=== PATIENT | female | born 1980 | race Caucasian/White ===

== ENCOUNTER 2024-11-09 10:46 | Outpatient (AMB) | payer BC, SELFPAY ==
--- OUTSIDE RECORDS SUMMARY | 2004-05-09 01:00 | XMS_ITS | Encounter Summary ---
Author Organization [facility] Address [address] [place] [phone] Phone Care Team Providers Care Research And Evaluation Analyst Name Role Phone Unavailable Primary Care Provider Unavailabl e Encounter Details Date Type Department Care Team (Late st Contact Info) Description 05/09/2004 Hospital Encounter [facility] [address] [place] [address] Mary Anne Bradley MD [address] [place] [address] Social History Tobacco Use Types Packs/Day Years Used Date Smoking Tobacco: Never Assessed Education Answer Date Recorded Are you interested in more education? Not on sulema e 06/23/2022 Are you concerned about learning? Not on file 06/23/2022 No 06/23/2022 No 06/23/2022 Digital Access Answer Date Recorded No 07/24/2022 No 07/24/2022 Reliable internet access at home? Not on file 07/24/2022 Device with a working camera? Not on file Comments Unknown Sex and Gender Information Value Date Recorded Sex Assigned at Female 11/01/2020 4:56 PM EDT Legal Sex Female 8:24 AM EDT Gender Identity Female 11/01/2020 4:56 PM EDT Sexual Orientation Straight 11/01/2020 4: 56 PM EDT documented as of this encounter Plan of Treatment Not on file documented as of this encounter Procedures Procedure Name Priority Date/Time Associated Diagnosis Comments MRI SPINE MUSCULOSKELETAL FOCUS OUTSIDE (NO INTERPRETATION) Routine 05/09/2004 12:00 AM EST documented in this encounter Results * MRI Spine (Bone) Outside (No Interpretation) (05/09/2004 12:00 AM EST) Narrative [facility] IMG INTERFACES - 11/03/2020 2:31 PM EDT This study is for PACS storage only and not for interpretation. us Mary Anne Bradley MD IMG OUTSIDE IMAGING W/OUT IN TERPRETATION Final Result [facility] IMG INTERFACES documented in this encounter Visit Diagnoses Not on filedocumented in this encounter Additional Source Comments The information contained in this document represents components of the legal health record. It is not the complete legal health record.[facility]
--- OUTSIDE RECORDS SUMMARY | 2004-10-16 | XMS_ITS | Encounter Summary ---
Author Organization [employer] [facility] Address [address] [place] [address] Phone Care Team Providers Care Full Stack Java Developer Name Role Phone Unavailable Primary Care Provider Unavailabl e Encounter Details Date Type Department Care Team (Late st Contact Info) Description 10/16/2004 Hospital Encounter [facility] [address] [place] [address] Mary Anne Bradley MD [address] [place] [address] Social History Tobacco Use Types Packs/Day Years [...] Procedure Name Priority Date/Time Associated Diagnosis Comments XR LOWER EXTREMITY OUTSIDE (NO INTERPRETATION) Routine 10/16/2004 12:00 AM EDT documented in this encounter Results * XR Lower Extremity Outside (No Interpretation) (10/16/2004 12:00 AM EDT) Narrative [facility] [place] [place]ES - 11/03/2020 2:22 PM EDT This study is for PACS storage only and not for interpretation. us Mary Anne Bradley MD IMG OUTSIDE IMAGING W/OUT IN TERPRETATION Final Result [facility] documented in this encounter Visit Diagnoses Not on filedocumented in this encounter Additional Source Comments The information contained in this document represents components of the legal health record. It is not the complete legal health record.[facility]
--- OUTSIDE RECORDS SUMMARY | 2004-12-14 | XMS_ITS | Encounter Summary ---
Author Organization [facility] Address [address] [place] [address] Phone Care Team Providers Care Internet Specialist Name Role Phone Unavailable Primary Care Provider Unavailabl e Encounter Details Date Type Department Care Team (Late st Contact Info) Description 12/14/2004 Hospital Encounter [facility] [address] [place] [address] Mary Anne Bradley MD [address] [place] [address] Social History Tobacco Use Types Packs/Day Years [...] Procedure Name Priority Date/Time Associated Diagnosis Comments CT SPINE (BONE) OUTSIDE (NO INTERPRETATION) Routine 12/14/2004 12:00 AM EDT documented in this encounter Results * CT Spine (Bone) Focus Outside (No Interpretation) (12/14/2004 12:00 AM EDT) Narrative [facility] IMG INTERFACES - 11/03/2020 3:49 PM EDT This study is for PACS storage only and not for interpretation. us Mary Anne Bradley MD IMG OUTSIDE IMAGING W/OUT IN TERPRETATION Final Result [facility] IMG INTERFACES documented in this encounter Visit Diagnoses Not on filedocumented in this encounter Additional Source Comments The information contained in this document represents components of the legal health record. It is not the complete legal health record.[facility]
--- OUTSIDE RECORDS SUMMARY | 2005-11-08 | XMS_ITS | Encounter Summary ---
Author Organization [employer] [facility] Address [address] [place] [address] Phone Care Team Providers Care Body Masker Name Role Phone Unavailable Primary Care Provider Unavailabl e Encounter Details Date Type Department Care Team (Late st Contact Info) Description 11/08/2005 Hospital Encounter [facility] [address] [place] [address] Mary Anne Bradley MD 55 [place] [address] Social History Tobacco Use Types Packs/Day Years [...] XR LOWER EXTREMITY OUTSIDE (NO INTERPRETATION) Routine 11/08/2005 12:00 AM EDT documented in this encounter Results * XR Lower Extremity Outside (No Interpretation) (11/08/2005 12:00 AM EDT) Narrative [facility] IMG INTERFACES - 11/03/2020 2:21 PM EDT This study is for PACS storage only and not for interpretation. us Mary Anne Bradley MD IMG OUTSIDE IMAGING W/OUT IN TERPRETATION Final Result [facility] IMG INTERFACES documented in this encounter Visit Diagnoses Not on filedocumented in this encounter Additional Source Comments The information contained in this document represents components of the legal health record. It is not the complete legal health record.[facility]
--- OUTSIDE RECORDS SUMMARY | 2005-11-08 00:05 | XMS_ITS | Encounter Summary ---
Author Organization [facility] Address [address] [place] [address] Phone Care Team Providers Care Public Health Veterinarian Name Role Phone Unavailable Primary Care Provider Unavailabl e Encounter Details Date Type Department Care Team (Late st Contact Info) Description 11/08/2005 12:05 AM EDT Hospital Encounter [facility] [address] [place] [address] Mary Anne Bradley MD [address] [place] [address] Social History Tobacco Use Types Packs/Day Years [...] LOWER EXTREMITY OUTSIDE (NO INTERPRETATION) Routine 11/08/2005 12:05 AM EDT documented in this encounter Results * XR Lower Extremity Outside (No Interpretation) (11/08/2005 12:05 AM EDT) Narrative [facility] IMG INTERFACES - 11/03/2020 2:22 PM EDT This study is for PACS storage only and not for interpretation. us Mary Anne Bradley MD IMG OUTSIDE IMAGING W/OUT IN TERPRETATION Final Result [facility] documented in this encounter Visit Diagnoses Not on filedocumented in this encounter Additional Source Comments The information contained in this document represents components of the legal health record. It is not the complete legal health record.[facility]
--- OUTSIDE RECORDS SUMMARY | 2005-11-29 | XMS_ITS | Encounter Summary ---
Author Organization [email or web address] [facility] Address [address] [place] [address] Phone Care Team Providers Care Regional Marketing Manager Name Role Phone Unavailable Primary Care Provider Unavailabl e Encounter Details Date Type Department Care Team (Late st Contact Info) Description 11/29/2005 Hospital Encounter [facility] [address] [place] [address] Mary Anne Bradley MD [address] [place] [address] Social History Tobacco Use Types Packs/Day Years [...] Procedure Name Priority Date/Time Associated Diagnosis Comments NM BONE OUTSIDE (NO INTERPRETATION) Routine 11/29/2005 12:00 AM EDT documented in this encounter Results * NM Bone Outside (No Interpretation) (11/29/2005 12:00 AM EDT) Narrative [facility]ES - 11/03/2020 2:27 PM EDT This study is for PACS [...] It is not the complete legal health record.[facility]
--- OUTSIDE RECORDS SUMMARY | 2006-12-07 | XMS_ITS | Encounter Summary ---
Author Organization [facility] Address [address] [place] [address] Phone Care Team Providers Care Finish Mill Operator Name Role Phone Unavailable Primary Care Provider Unavailabl e Encounter Details Date Type Department Care Team (Late st Contact Info) Description 12/07/2006 Hospital Encounter [facility] [address] [place] [address] Mary Anne Bradley MD [address] [place] [address] Social History Tobacco Use Types Packs/Day Years [...] SPINE MUSCULOSKELETAL FOCUS OUTSIDE (NO INTERPRETATION) Routine 12/07/2006 12:00 AM EDT documented in this encounter Results * MRI Spine (Bone) Outside (No Interpretation) (12/07/2006 12:00 AM EDT) Narrative [facility] IMG INTERFACES - 11/03/2020 2:28 PM EDT This study is for PACS storage only and not for interpretation. us Mary Anne Bradley MD IMG OUTSIDE IMAGING W/OUT IN TERPRETATION Final Result [facility] documented in this encounter Visit Diagnoses Not on filedocumented in this encounter Additional Source Comments The information contained in this document represents components of the legal health record. It is not the complete legal health record.[facility]
--- OUTSIDE RECORDS SUMMARY | 2007-01-29 01:00 | XMS_ITS | Encounter Summary ---
Author Organization [employer] [facility] Address [address] [place] [address] Phone Care Team Providers Care Professional Volleyball Player Name Role Phone Unavailable Primary Care Provider Unavailabl e Encounter Details Date Type Department Care Team (Late st Contact Info) Description 01/29/2007 Hospital Encounter [facility] [address] [place] [address] Mary Anne Bradley MD 55 [place] [address] Social History Tobacco Use Types Packs/Day Years [...] SPINE MUSCULOSKELETAL FOCUS OUTSIDE (NO INTERPRETATION) Routine 01/29/2007 12:00 AM EST documented in this encounter Results * MRI Spine (Bone) Outside (No Interpretation) (01/29/2007 12:00 AM EST) Narrative [facility] [place] [place] - 11/03/2020 2:29 PM EDT This study is for PACS storage only and not for interpretation. us Mary Anne Bradley MD IMG OUTSIDE IMAGING W/OUT IN TERPRETATION Final Result [facility] documented in this encounter Visit Diagnoses Not on filedocumented in this encounter Additional Source Comments The information contained in this document represents components of the legal health record. It is not the complete legal health record.[facility]
--- OUTSIDE RECORDS SUMMARY | 2007-03-28 01:00 | XMS_ITS | Encounter Summary ---
Author Organization [employer] [facility] Address [address] [place] [address] Phone Care Team Providers Care Waterproofer Name Role Phone Unavailable Primary Care Provider Unavailabl e Encounter Details Date Type Department Care Team (Late st Contact Info) Description 03/28/2007 Hospital Encounter [facility] [address] [place] [address] Mary Anne Bradley MD 55 [place] [address] Social History Tobacco Use Types Packs/Day Years [...] Comments NM BONE OUTSIDE (NO INTERPRETATION) Routine 03/28/2007 12:00 AM EST documented in this encounter Results * NM Bone Outside (No Interpretation) (03/28/2007 12:00 AM EST) Narrative [facility]G INTERFACES - 11/03/2020 2:24 PM EDT This study is for PACS storage only and not for interpretation. us Mary Anne Bradley MD IMG OUTSIDE IMAGING W/OUT IN TERPRETATION Final Result [facility] INTERFACES documented in this encounter Visit Diagnoses Not on filedocumented in this encounter Additional Source Comments The information contained in this document represents components of the legal health record. It is not the complete legal health record.[facility]
--- OUTSIDE RECORDS SUMMARY | 2007-03-28 01:00 | XMS_ITS | Encounter Summary ---
Author Organization [employer] [facility] Address [address] [place] [address] Phone Care Team Providers Care Crisis Therapist Name Role Phone Unavailable Primary Care Provider Unavailabl e Encounter Details Date Type Department Care Team (Late st Contact Info) Description 03/28/2007 Hospital Encounter [facility] [address] [place] [address] Mary Anne Bradley MD 55 [place] [address] Social History Tobacco Use Types Packs/Day Years [...] Name Priority Date/Time Associated Diagnosis Comments CT HEAD OUTSIDE (NO INTERPRETATION) Routine 03/28/2007 12:00 AM EST documented in this encounter Results * CT Head Outside (No Interpretation) (03/28/2007 12:00 AM EST) Narrative [facility] IMG INTERFACES - 11/03/2020 3:50 PM EDT This study is for PACS storage only and not for interpretation. us Mary Anne Bradley MD IMG OUTSIDE IMAGING W/OUT IN TERPRETATION Final Result [facility] IMG INTERFACES documented in this encounter Visit Diagnoses Not on filedocumented in this encounter Additional Source Comments The information contained in this document represents components of the legal health record. It is not the complete legal health record.[facility]
--- OUTSIDE RECORDS SUMMARY | 2007-09-25 | XMS_ITS | Encounter Summary ---
Author Organization [employer] [facility] Address [address] [place] [address] Phone Care Team Providers Care Recruiting Operations Consultant Name Role Phone Unavailable Primary Care Provider Unavailabl e Encounter Details Date Type Department Care Team (Late st Contact Info) Description 09/25/2007 Hospital Encounter [facility] [address] [place] [address] Mary Anne Bradley MD 55 [place] [address] Social History Tobacco Use Types Packs/Day Years [...] Comments NM BONE OUTSIDE (NO INTERPRETATION) Routine 09/25/2007 12:00 AM EDT documented in this encounter Results * NM Bone Outside (No Interpretation) (09/25/2007 12:00 AM EDT) Narrative [facility] [place] - 11/03/2020 2:25 PM EDT This study is for PACS storage only and not for interpretation. us Mary Anne Bradley MD IMG OUTSIDE IMAGING W/OUT IN TERPRETATION Final Result [facility] documented in this encounter Visit Diagnoses Not on filedocumented in this encounter Additional Source Comments The information contained in this document represents components of the legal health record. It is not the complete legal health record.[facility]
--- OUTSIDE RECORDS SUMMARY | 2008-08-18 | XMS_ITS | Encounter Summary ---
Author Organization [employer] [facility] Address [address] [place] [address] Phone Care Team Providers Care Leather Belt Shaper Name Role Phone Unavailable Primary Care Provider Unavailabl e Encounter Details Date Type Department Care Team (Late st Contact Info) Description 08/18/2008 Hospital Encounter [facility] [address] [place] [address] Mary Anne Bradley MD 55 [place] [address] Social History Tobacco Use Types Packs/Day Years [...] SPINE MUSCULOSKELETAL FOCUS OUTSIDE (NO INTERPRETATION) Routine 08/18/2008 12:00 AM EDT documented in this encounter Results * MRI Spine (Bone) Outside (No Interpretation) (08/18/2008 12:00 AM EDT) Narrative [facility]G INTERFACES - 11/03/2020 2:29 PM EDT This study is for PACS storage only and not for interpretation. us Mary Anne Bradley MD IMG OUTSIDE IMAGING W/OUT IN TERPRETATION Final Result [facility]G INTERFACES documented in this encounter Visit Diagnoses Not on filedocumented in this encounter Additional Source Comments The information contained in this document represents components of the legal health record. It is not the complete legal health record.[facility]
--- OUTSIDE RECORDS SUMMARY | 2008-08-18 | XMS_ITS | Encounter Summary ---
Author Organization [facility] [facility] Address [address] [place] [address] Phone Care Team Providers Care Nursing Services Manager Name Role Phone Unavailable Primary Care Provider Unavailabl e Encounter Details Date Type Department Care Team (Late st Contact Info) Description 08/18/2008 Hospital Encounter [facility] [address] [place] [address] Mary Anne Bradley MD 55 [place] [address] Social History Tobacco Use Types Packs/Day Years [...] Comments NM BONE OUTSIDE (NO INTERPRETATION) Routine 08/18/2008 12:00 AM EDT documented in this encounter Results * NM Bone Outside (No Interpretation) (08/18/2008 12:00 AM EDT) Narrative [facility]G INTERFACES - 11/03/2020 2:25 PM EDT [...] It is not the complete legal health record.[facility]
--- OUTSIDE RECORDS SUMMARY | 2008-08-18 00:05 | XMS_ITS | Encounter Summary ---
Author Organization [facility] Address [address] [place] [address] Phone Care Team Providers Care Equipment Sales Specialist Name Role Phone Unavailable Primary Care Provider Unavailabl e Encounter Details Date Type Department Care Team (Late st Contact Info) Description 08/18/2008 12:05 AM EDT Hospital En[facility] [address] [place] [address] Mary Anne Bradley MD [address] [place] [address] Social History Tobacco Use Types Packs/Day Years [...] NM BONE OUTSIDE (NO INTERPRETATION) Routine 08/18/2008 12:05 AM EDT documented in this encounter Results * NM Bone Outside (No Interpretation) (08/18/2008 12:05 AM EDT) Narrative [facility] IMG INTERFACES - 11/03/2020 2:29 PM EDT This study is for PACS storage only and not for interpretation. us Mary Anne Bradley MD IMG OUTSIDE IMAGING W/OUT IN TERPRETATION Final Result [facility] IMG INTERFACES documented in this encounter Visit Diagnoses Not on filedocumented in this encounter Additional Source Comments The information contained in this document represents components of the legal health record. It is not the complete legal health record.[facility]
--- OUTSIDE RECORDS SUMMARY | 2008-12-21 | XMS_ITS | Encounter Summary ---
Author Organization [employer] [facility] Address [address] [place] [address] Phone Care Team Providers Care Printing Film Stripper Name Role Phone Unavailable Primary Care Provider Unavailabl e Encounter Details Date Type Department Care Team (Late st Contact Info) Description 12/21/2008 Hospital Encounter [facility] [address] [place] [address] Mary Anne Bradley MD 55 [place] [address] Social History Tobacco Use Types Packs/Day Years [...] Name Priority Date/Time Associated Diagnosis Comments XR SPINE OUTSIDE (NO INTERPRETATION) Routine 12/21/2008 12:00 AM EDT documented in this encounter Results * XR SPINE OUTSIDE(NO INTERPRETATION) (12/21/2008 12:00 AM EDT) Narrative [facility] INTERFACES - 11/03/2020 2:23 PM EDT This study is for PACS storage only and not for interpretation. us Mary Anne Bradley MD IMG OUTSIDE IMAGING W/OUT IN TERPRETATION Final Result [facility] INTER[facility]ACES documented in this encounter Visit Diagnoses Not on filedocumented in this encounter Additional Source Comments The information contained in this document represents components of the legal health record. It is not the complete legal health record.[facility]
--- OUTSIDE RECORDS SUMMARY | 2008-12-21 00:05 | XMS_ITS | Encounter Summary ---
Author Organization [facility] Address [address] [place] [address] Phone Care Team Providers Care Silk Screen Operator Name Role Phone Unavailable Primary Care Provider Unavailabl e Encounter Details Date Type Department Care Team (Late st Contact Info) Description 12/21/2008 12:05 AM EDT Hospital En[facility] [address] [place] [address] Mary Anne Bradley MD [address] [place] [address] Social History Tobacco Use Types Packs/Day Years [...] XR SPINE OUTSIDE (NO INTERPRETATION) Routine 12/21/2008 12:05 AM EDT documented in this encounter Results * XR SPINE OUTSIDE(NO INTERPRETATION) (12/21/2008 12:05 AM EDT) Narrative [facility] IMG INTERFACES - 11/03/2020 2:23 PM EDT This study is for PACS storage only and not for interpretation. us Mary Anne Bradley MD IMG OUTSIDE IMAGING W/OUT IN TERPRETATION Final Result [facility] IMG INTERFACES documented in this encounter Visit Diagnoses Not on filedocumented in this encounter Additional Source Comments The information contained in this document represents components of the legal health record. It is not the complete legal health record.[facility]
--- OUTSIDE RECORDS SUMMARY | 2008-12-22 | XMS_ITS | Encounter Summary ---
Author Organization [employer] [facility] Address [address] [place] [address] Phone Care Team Providers Care Court Monitor Name Role Phone Unavailable Primary Care Provider Unavailabl e Encounter Details Date Type Department Care Team (Late st Contact Info) Description 12/22/2008 Hospital Encounter [facility] [address] [place] [address] Mary Anne Bradley MD [address] [place] [address] Social History Tobacco Use Types Packs/Day Years [...] Name Priority Date/Time Associated Diagnosis Comments CT ABDOMEN OUTSIDE (NO INTERPRETATION) Routine 12/22/2008 12:00 AM EDT documented in this encounter Results * CT Abdomen Outside (No Interpretation) (12/22/2008 12:00 AM EDT) Narrative [facility] IMG INTERFACES - 11/03/2020 3:42 PM EDT This study is for PACS storage only and not for interpretation. us Mary Anne Bradley MD IMG OUTSIDE IMAGING W/OUT IN TERPRETATION Final Result [facility] IMG INTERFACES documented in this encounter Visit Diagnoses Not on filedocumented in this encounter Additional Source Comments The information contained in this document represents components of the legal health record. It is not the complete legal health record.[facility]
--- OUTSIDE RECORDS SUMMARY | 2008-12-22 00:05 | XMS_ITS | Encounter Summary ---
Author Organization [facility] Address [address] [facility] [address] [place] [address] Phone Care Team Providers Care Pot Fisher Name Role Phone Unavailable Primary Care Provider Unavailabl e Encounter Details Date Type Department Care Team (Late st Contact Info) Description 12/22/2008 12:05 AM EDT Hospital En[facility] [address] [place] [address] Mary Anne Bradley MD [address] [place] [address] Social History Tobacco Use Types Packs/Day Years [...] CT ABDOMEN OUTSIDE (NO INTERPRETATION) Routine 12/22/2008 12:05 AM EDT documented in this encounter Results * CT Abdomen Outside (No Interpretation) (12/22/2008 12:05 AM EDT) Narrative [facility] [place] - 11/03/2020 3:50 PM EDT This study is for PACS storage only and not for interpretation. us Mary Anne Bradley MD IMG OUTSIDE IMAGING W/OUT IN TERPRETATION Final Result [facility] documented in this encounter Visit Diagnoses Not on filedocumented in this encounter Additional Source Comments The information contained in this document represents components of the legal health record. It is not the complete legal health record.[facility]
--- OUTSIDE RECORDS SUMMARY | 2008-12-30 01:00 | XMS_ITS | Encounter Summary ---
Author Organization [employer] [facility] Address [address] [place] [address] Phone Care Team Providers Care Motor Grader Rough Grade Name Role Phone Unavailable Primary Care Provider Unavailabl e Encounter Details Date Type Department Care Team (Late st Contact Info) Description 12/30/2008 Hospital Encounter [facility] [address] [place] [address] Mary Anne Bradley MD [address] [place] [address] Social History Tobacco Use Types Packs/Day Years [...] Priority Date/Time Associated Diagnosis Comments MRI SPINE NEUROLOGIC FOCUS OUTSIDE (NO INTERPRETATION) Routine 12/30/2008 12:00 AM EST documented in this encounter Results * MRI Spine (Neuro) Outside (No Interpretation) (12/30/2008 12:00 AM EST) Narrative [facility]G INTERFACES - 11/03/2020 2:29 PM EDT This study is for PACS storage only and not for interpretation. us Mary Anne Bradley MD IMG OUTSIDE IMAGING W/OUT IN TERPRETATION Final Result [facility] documented in this encounter Visit Diagnoses Not on filedocumented in this encounter Additional Source Comments The information contained in this document represents components of the legal health record. It is not the complete legal health record.[facility]
--- OUTSIDE RECORDS SUMMARY | 2008-12-30 01:05 | XMS_ITS | Encounter Summary ---
Author Organization [facility] Address [address] [place] [address] Phone Care Team Providers Care Mechanical Spreader Operator Name Role Phone Unavailable Primary Care Provider Unavailabl e Encounter Details Date Type Department Care Team (Late st Contact Info) Description 12/30/2008 12:05 AM EST [facility] En[facility] [address] [place] [address] Mary Anne Bradley MD [address] [place] [address] Social History Tobacco Use Types Packs/Day Years [...] SPINE MUSCULOSKELETAL FOCUS OUTSIDE (NO INTERPRETATION) Routine 12/30/2008 12:05 AM EST documented in this encounter Results * MRI Spine (Bone) Outside (No Interpretation) (12/30/2008 12:05 AM EST) Narrative [facility] [place] - 11/03/2020 2:30 PM EDT This study is for PACS storage only and not for interpretation. us Mary Anne Bradley MD IMG OUTSIDE IMAGING W/OUT IN TERPRETATION Final Result [facility] INTERFACES documented in this encounter Visit Diagnoses Not on filedocumented in this encounter Additional Source Comments The information contained in this document represents components of the legal health record. It is not the complete legal health record.[facility]
--- OUTSIDE RECORDS SUMMARY | 2010-08-18 | XMS_ITS | Encounter Summary ---
Author Organization [employer] [facility] Address [address] [place] [address] Phone Care Team Providers Care Student Services Representative Name Role Phone Unavailable Primary Care Provider Unavailabl e Encounter Details Date Type Department Care Team (Late st Contact Info) Description 08/18/2010 Hospital Encounter [facility] [address] [place] [address] Mary Anne Bradley MD [address] [place] [address] Social History Tobacco Use Types Packs/Day Years [...] XR LOWER EXTREMITY OUTSIDE (NO INTERPRETATION) Routine 08/18/2010 12:00 AM EDT documented in this encounter Results * XR Lower Extremity Outside (No Interpretation) (08/18/2010 12:00 AM EDT) Narrative [facility] [place] - 11/03/2020 2:24 PM EDT This study is for PACS storage only and not for interpretation. us Mary Anne Bradley MD IMG OUTSIDE IMAGING W/OUT IN TERPRETATION Final Result [facility] [place] documented in this encounter Visit Diagnoses Not on filedocumented in this encounter Additional Source Comments The information contained in this document represents components of the legal health record. It is not the complete legal health record.[facility]
--- OUTSIDE RECORDS SUMMARY | 2010-08-25 | XMS_ITS | Encounter Summary ---
Author Organization [email or web address] [facility] Address [address] [place] [address] Phone Care Team Providers Care Melting Furnace Skimmer Name Role Phone Unavailable Primary Care Provider Unavailabl e Encounter Details Date Type Department Care Team (Late st Contact Info) Description 08/25/2010 Hospital Encounter [facility] [address] [place] [address] Mary Anne Bradley MD [address] [place] [address] Social History Tobacco Use Types Packs/Day Years [...] Comments NM BONE OUTSIDE (NO INTERPRETATION) Routine 08/25/2010 12:00 AM EDT documented in this encounter Results * NM Bone Outside (No Interpretation) (08/25/2010 12:00 AM EDT) Narrative [facility] [place] [place]ACES - 11/03/2020 2:28 PM EDT This study is for PACS storage only and not for interpretation. us Mary Anne Bradley MD IMG OUTSIDE IMAGING W/OUT IN TERPRETATION Final Result [facility] INTERFACES documented in this encounter Visit Diagnoses Not on filedocumented in this encounter Additional Source Comments The information contained in this document represents components of the legal health record. It is not the complete legal health record.[facility]
--- OUTSIDE RECORDS SUMMARY | 2010-12-19 | XMS_ITS | Encounter Summary ---
Author Organization [employer] [facility] Address [address] [place] [address] Phone Care Team Providers Care Radial Drill Press Operator For Plastic Name Role Phone Unavailable Primary Care Provider Unavailabl e Encounter Details Date Type Department Care Team (Late st Contact Info) Description 12/19/2010 Hospital Encounter [facility] [address] [place] [address] Mary Anne Bradley MD 55 [place] [address] Social History Tobacco Use Types Packs/Day Years [...] Comments XR SPINE OUTSIDE (NO INTERPRETATION) Routine 12/19/2010 12:00 AM EDT documented in this encounter Results * XR SPINE OUTSIDE(NO INTERPRETATION) (12/19/2010 12:00 AM EDT) Narrative [facility] [place] INTERFACES - 11/03/2020 2:24 PM EDT This study is for PACS storage only and not for interpretation. us Mary Anne Bradley MD IMG OUTSIDE IMAGING W/OUT IN TERPRETATION Final Result [facility]G INTERFACES documented in this encounter Visit Diagnoses Not on filedocumented in this encounter Additional Source Comments The information contained in this document represents components of the legal health record. It is not the complete legal health record.[facility]
--- OUTSIDE RECORDS SUMMARY | 2011-09-26 | XMS_ITS | Encounter Summary ---
Author Organization [employer] [facility] Address [address] [place] [address] Phone Care Team Providers Care Philosophy Specialist Name Role Phone Unavailable Primary Care Provider Unavailabl e Encounter Details Date Type Department Care Team (Late st Contact Info) Description 09/26/2011 Hospital Encounter [facility] [address] [place] [address] Mary Anne Bradley MD [address] [place] [address] Social History Tobacco Use Types Packs/Day Years [...] Comments CT ABDOMEN OUTSIDE (NO INTERPRETATION) Routine 09/26/2011 12:00 AM EDT documented in this encounter Results * CT Abdomen Outside (No Interpretation) (09/26/2011 12:00 AM EDT) Narrative [facility] INTERFACES - 11/03/2020 3:49 PM EDT This study is for PACS storage only and not for interpretation. us Mary Anne Bradley MD IMG OUTSIDE IMAGING W/OUT IN TERPRETATION Final Result [facility] INTERFACES documented in this encounter Visit Diagnoses Not on filedocumented in this encounter Additional Source Comments The information contained in this document represents components of the legal health record. It is not the complete legal health record.[facility]
--- OUTSIDE RECORDS SUMMARY | 2011-11-28 | XMS_ITS | Encounter Summary ---
Author Organization [employer] [facility] Address [address] [place] [address] Phone Care Team Providers Care Coping Machine Assembler Name Role Phone Unavailable Primary Care Provider Unavailabl e Encounter Details Date Type Department Care Team (Late st Contact Info) Description 11/28/2011 Hospital Encounter [facility] [address] [place] [address] Mary Anne Bradley MD [address] [place] [address] Social History Tobacco Use Types Packs/Day Years [...] SPINE MUSCULOSKELETAL FOCUS OUTSIDE (NO INTERPRETATION) Routine 11/28/2011 12:00 AM EDT documented in this encounter Results * MRI Spine (Bone) Outside (No Interpretation) (11/28/2011 12:00 AM EDT) Narrative [facility] [place] [place] - 11/03/2020 2:30 PM EDT This study is for PACS storage only and not for interpretation. us Mary Anne Bradley MD IMG OUTSIDE IMAGING W/OUT IN TERPRETATION Final Result [facility] [place] documented in this encounter Visit Diagnoses Not on filedocumented in this encounter Additional Source Comments The information contained in this document represents components of the legal health record. It is not the complete legal health record.[facility]
--- OUTSIDE RECORDS SUMMARY | 2012-03-03 01:00 | XMS_ITS | Encounter Summary ---
Author Organization [employer] [facility] Address [address] [place] [address] Phone Care Team Providers Care Wildland Fire Fighter Specialist Name Role Phone Unavailable Primary Care Provider Unavailabl e Encounter Details Date Type Department Care Team (Late st Contact Info) Description 03/03/2012 Hospital Encounter [facility] [address] [place] [address] Mary Anne Bradley MD [address] [place] [address] Social History Tobacco Use Types Packs/Day Years [...] SPINE MUSCULOSKELETAL FOCUS OUTSIDE (NO INTERPRETATION) Routine 03/03/2012 12:00 AM EST documented in this encounter Results * MRI Spine (Bone) Outside (No Interpretation) (03/03/2012 12:00 AM EST) Narrative [facility] [place] - 11/03/2020 2:31 PM EDT [...] is not the complete legal health record.[facility]
--- NOTE | 2024-11-09 10:59 | A.SPINEOV_ITS ---
Vital Signs 11/09/24 11:00 Height 5 ft 2 in Weight 240 lb BMI 43.9 Intake Visit Reasons: low back pain Intake Note: Ms. Anderson is here today c/o upper back pain that radiates to the arms causing numbness and also low back pain that radiates to the legs. Blocker And Cutter Contact Lens Required: No Allergies Latex, Natural Rubber Allergy (Severe, Verified 11/09/24 11:03) Rash Physical Exam Vital Signs: BMI result Body Mass Index 43.9 Assessment & Plan Assessment & Plan (1) Back pain: Code(s): M54.9 - Dorsalgia, unspecified Category: Medical Plan Dear Dr Dahl, Thank you for referring Mrs Anderson to our office today. She is a 43-year-old female presents for the office for evaluation of diffuse back pain and neck pain. 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 She has been through physical therapy, medication trials and currently takes oxycodone 3 times a day I believe. 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 She comes in today with MRIs showing some mild degenerative findings and possible surgical intervention. PMH: As above, she has a history of genetic mutation of NF1, I could not find any reports specifying development of lesions in the spine but the patient reports that she has them somewhere in her sacrum. She also has an overlapping diagnosis of fibrodysplasia ossificans. 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 She is not sure if this was a schwannoma, or some kind of other bone tumor. That remains a mystery and she does not know specifically what kind of pathology was related to that. It ultimately ended up and herniating 12 surgeries as well as treatment for an infection that sounds like it could have been MRSA. She remembers needing IV antibiotics. She has also had an issue with development of multiple brain aneurysms and has had 1 coiled. She is due to follow up about another 1 which is been slowly getting larger. She is a history of but no major abdominal surgeries. She also has a history of ADD and depression/anxiety. No history of cancer, cardiopulmonary disease, liver or kidney disorders. Social hx: She smokes about a 3rd of a pack a day, does not use any recreational drugs or drink alcohol Medications: Oxycodone and trazodone Allergies: None Physical exam: Awake alert oriented no acute distress, she has a lift in her right shoe as she has a slightly shorter right leg. Gait is normal, tandem gait walking is normal. Strength and reflexes are normal. Imaging review: There is a cervical or thoracic and a lumbar MRI reviewed. The patient was able to pull up the reports on the patient portal from the [facility] where these were done. These are suggesting mild degenerative disc disease at C5-6, no mention of schwannoma or tumors. The thoracic spine MRI is mentioning a very small possibly peripherally enhancing T3 vertebral body lesion, could be hemangioma but other possible sources not ruled out. No mention of schwannoma or spinal tumors near the nerve structures. There is an old T9 mild compression fracture. Lumbar MRI and sacral MRI also done at the same [facility]. There is some mild degenerative disc disease at L5-S1 but the rest of her spine otherwise looks okay. No compression of any of the nerve structures. Sacral MRI was otherwise unremarkable. No mention of tumors. Impression: 43-year-old female with history of genetic NF1, unclear if she has ever had any tumors actually identified related to this, history of fibrous dysplasia ossifications, possibly some surgery on her tibia when she was very young related to this that ended up with 12 subsequent surgeries and an infection. She has diffuse pain all throughout her back area that has been elusive to diagnosis. She has seen surgeons through the years have told her to do things like lose weight etc. but never been able to produce any kind of meaningful conversations that she thought would produce improvement in her pain. At 1 point someone who is going to fuse L5-S1, that was a surgeon in [place]. Her current MRI show that she has just very mild disc degeneration at L5-S1. This is not typically something Dr. Flanagan would offer fusion for but I will review with him. With regard to the NF1 situation, there is no clear evidence of nerve sheath tumors on the MRI reports. There is mention of a small finding inside the bone itself of T3 where there are no nervous structures. It suggests it could be a hemangioma but recommends follow-up imaging. I will defer to you if you wish to consider bone scan to look for something more malignant. Given the history of the tumor in her tibia this might be worth looking into. There is an old T9 compression fracture but nothing acute that would be amenable to kyphoplasty for example. In the cervical spine there is just very mild degeneration but nothing again that would raise to the level of surgery. I will review all this with Dr. Flanagan see if he has any other thoughts and get back to the patient. Thank you for allowing us to care for your patient. The total time spent with this visit with this patient was 65 minutes reviewing history, physical exam, cervicothoracic and lumbar imaging review, and implementation of treatment plan or further diagnostic testing Laci Flanagan MD,PhD [facility] Coding Level of Care Code New Pt Level 5 (78751) Diagnoses Back pain M54.9
[2024-11-09 11:00] VITALS: BMI 43.9
--- OUTSIDE RECORDS SUMMARY | 2024-11-09 14:04 | XMS_ITS | Encounter Summary ---
Author Organization [facility] Address [address] [place] [phone] Care Team Providers Care Woodenware Assembler Name Role Phone Alec Dahl MD Primary Care Provider [phone] Reason for Visit * Reason Comments Other Encounter Details Date Type Department Care Team ([facility] Contact Info) Description 12/16/2020 Telephone [facility] SCHEDULING [address] [place], [place] [phone] James Reynolds MD [address] [place] [address] Other Social History Tobacco Use Types Packs/Day Years Used Date Smoking Tobacco: Every Day Cigarettes Smokeless Tobacco: Never Alcohol Use Standard Drinks/Week Comments Not Currently 0 (1 standard drink = 0.6 oz pur e alcohol) Comments Unknown Sex and Gender Information Value Date Recorded Sex Assigned at Not on file Legal Sex Female 10:04 AM EST Gender Identity Female 09/16/2020 4:45 PM EDT Sexual Orientation Not on file COVID-19 Exposure Response Date Recorded In the last month, have you been in contact with someone who was confirmed or suspected to have Coronavirus / COVID-19? No / Unsure 12/09/2020 11:53 AM EDT documented as of this encounter Miscellaneous Notes * Telephone Encounter - Gael Jorge RN - 12/16/2020 4:07 PM EDT Contacted pt. She states she has NOT started taking ASA. I advised her that she has to start takingher aspirin or Dr Reynolds will not do the procedure. She verbalized understanding. I told her I would call as soon as I had new date from Dr Reynolds. She verbalized understanding. * Telephone Encounter - Gael Jorge RN - 12/16/2020 3:42 PM EDT Attempted to contact pt's . Left detailed VM that I am waiting for for Dr Reynolds to give me dates. I also stated that pt needs to be on aspirin x 10 days prior to procedure. Pt had failed to start aspirin with her Plavix and she should have started yesterday after I talked to her. I encouraged him to call with any questions or concerns. * Telephone Encounter - Tricia Zambrano - 12/16/2020 3:26 PM EDT [facility] MESSAGE Time of call: 3:27 PM Caller: silvino Caller's relationship to patient: Calling from Reason for call: Silvino called pt surg was cancelled by doc he would like to get it rescheduled lilia. Please call thanks If not feeling well, what are symptoms: If having symptoms, how long have the symptoms been present: Does caller request to speak to someone urgently? yes Best telephone number for callback: [phone] Best time to return call: Permission to leave message: Tricia Zambrano documented in this encounter Plan of Treatment Upcoming Encounters Date Type Department Care Team (Late st Contact Info) Description 11/16/2024 2:45 PM EDT Telemedicine Neurosurgery at [address] [place] [address] James Reynolds MD [address] [place] [address], [place] [phone] 12/21/2024 10:00 AM EDT Office Visit [facility] [address] [place] [address] Oziel Isabel MD [address] [place] [phone] documented as of this encounter Visit Diagnoses Not on filedocumented in this encounter Care Teams Woodenware Assembler Relationship Specialty Start Date End Date Alec Dahl MD [address] [place] [phone] PCP - General Internal Medicine 02/23/20 documented as of this encounter
--- OUTSIDE RECORDS SUMMARY | 2024-11-09 14:04 | XMS_ITS | Encounter Summary ---
Author Organization [facility] Address [address] [place] [phone] Care Team Providers Care Coremaker Floor Name Role Phone Alec Dahl MD Primary Care Provider [phone] Reason for Visit * Reason Comments Medication Refill Encounter Details Date Type Department Care Team (Late Contact Info) Description 12/29/2020 Refill [facility] [address] [facility][Note 3] [address] [place] [address] Angela Gutierrez, INSTRUMENTATION TECH [address] [place] [phone] Medication Refill Social History Tobacco Use Types Packs/Day Years Used Date Smoking Tobacco: Every Day Cigarettes Smokeless Tobacco: Never Alcohol Use Standard Drinks/Week Comments Not Currently 0 (1 standard drink = 0.6 oz pur e alcohol) PHQ-2 Answer Date Recorded PHQ-2 Total Score 0 12/31/2020 Comments Unknown Sex and Gender Information Value Date Recorded Sex Assigned at Not on file Legal Sex Female 10:04 AM EST Gender Identity Female 09/16/2020 4:45 PM EDT Sexual Orientation Not on file COVID-19 Exposure Response Date Recorded In the last month, have you been in contact with someone who was confirmed or suspected to have Coronavirus / COVID-19? No / Unsure 12/31/2020 4:45 AM EDT documented as of this encounter Plan of Treatment Upcoming Encounters Date Type Department Care Team (Late Contact Info) Description 11/16/2024 2:45 PM EDT Telemedicine [facility] at [address] [facility][Note 3] [place] [address] James Reynolds MD [address] [place] [phone] 12/21/2024 10:00 AM EDT Office Visit [facility] [address] [place] [address] Oziel Isabel MD [address] [place] [address], [place] [phone] documented as of this encounter Visit Diagnoses Diagnosis Intracranial aneurysm (HC CODE) Cerebral aneurysm, nonruptured documented in this encounter Care Teams Coremaker Floor Relationship Specialty Start Date End Date Alec Dahl MD [address] [place] [phone] PCP - General Internal Medicine 02/23/20 documented as of this encounter
--- OUTSIDE RECORDS SUMMARY | 2024-11-09 14:05 | XMS_ITS | Encounter Summary ---
Author Organization [facility] and [facility] Address [address] [place] [phone] Care Team Providers Care French Drawer Name Role Phone Alec Dahl MD Primary Care Provider [phone] Encounter Details Date Type Department Care Team (Late st Contact Info) Description 03/09/2021 Orders Only [facility] - [address] [place] [address] Oziel Isabel MD [address] [place] [phone] Hemihypertrophy (Primary Dx) Social History Tobacco Use Types Packs/Day Years [...] PM EDT Sexual Orientation Not on file documented as of this encounter Plan of Treatment Upcoming Encounters Date Type Department Care Team (Late st Contact Info) Description 11/16/2024 2:45 PM EDT Telemedicine [facility] at [address] [address] James Reynolds MD [address] [place], [place] [address] [place] [phone] 12/21/2024 10:00 AM EDT Office Visit [facility] [address] 2nd [place] [address] Oziel Isabel MD [address] [place] [phone] Scheduled Orders Name Type Priority Associated Diagnoses Orde r Schedule Alphafetoprotein, tumor marker Lab Routine Hemihypertrophy Ordered: 03/09/2021 documented as of this encounter Visit Diagnoses Diagnosis Hemihypertrophy (HC CODE)- Primary Other specified congenital anomalies documented in this encounter Additional Health Concerns Assessment Noted Time PHQ-9 Depression Total Score: 0 01/01/20 21 4:42 AM EDT documented as of this encounter Care Teams French Drawer Relationship Specialty Start Date End Date Alec Dahl MD [address] [place] [phone] PCP - General Internal Medicine 02/23/20 documented as of this encounter
--- OUTSIDE RECORDS SUMMARY | 2024-11-09 14:05 | XMS_ITS | Encounter Summary ---
Author Organization [facility] and [facility] Address [address] [place] [phone] Care Team Providers Care Metallurgical Specialist Name Role Phone Alec Dahl MD Primary Care Provider [phone] Encounter Details Date Type Department Care Team (Late st Contact Info) Description 04/21/2021 Orders Only [facility] [place] [address], [address] [place] [address] Oziel Isabel MD [address] [place] [phone] Hemihypertrophy; Family history of brain aneurysm; Aneurysm (HC Code) Social History Tobacco Use Types Packs/Day Years [...] PM EDT Telemedicine [facility] at [address] [address] James Reynolds MD [address] [place] [address] 12/21/2024 10:00 AM EDT Office Visit [facility] [address]nd [place] [address] Oziel Isabel MD [address] [place] [phone] documented as of this encounter Procedures Procedure Name Priority Date/Time Associated Diagnosis Comments REANALYSIS OF GENE SEQUENCING (DNA LAB) ([facility]) Routine 04/21/2021 3:59 PM EST Hemihypertrophy Family history of brain aneurysm Aneurysm (HC Code) documented in this encounter Results * REANALYSIS OF GENE SEQUENCING (DNA LAB) ([facility]) DNA (Prev EGA) (04/21/2021 3:59 PM EST) Source Material DNA 4:36 PM EST [facility] Comment:Prev EGA Family Number [id number] 02/15/2022 4:36 PM EST [facility] Reanalysis of Gene Sequencing Interpretation NO CLINICALLY SIGNIFICANT GENETIC VARIANT RELATED TO THIS PATIENT S PHENOTYPE WAS IDENTIFIED. INDICATION FOR TESTIN-year-old female patient with hemihypertrophy of lower extremity, personal and family history of brain aneurysm RESULTS: Candidate genes for overgrowth syndrome and vascular malformation were examined. No phenotypically relevant variant was found. RECOMMENDATIONS These results should be interpreted in the context of the patient s clinical findings and family history. Reinterpretation of sequence data is recommended on an annual basis because new genes are still being discovered. This may be requested by a medical provider. VARIANT CLASSIFICATION: Interpretation of variants follows ACMG guidelines (ACMG Standards and Guidelines for the Interpretation of Sequence Variants, www.acmg.net/ACMG/ Publications/Labor atory_Standards_Gu idelines/). PATHOGENIC: Meets strict criteria based on scientific and medical evidence as a disease-causing variant. Nevertheless, genetic testing should be used in conjunction with other clinical information when possible. LIKELY PATHOGENIC: Sufficient evidence exists to justify using the genetic test result in clinical decision making when combined with other evidence for the disease in question (e.g., supporting biochemical findings, imaging studies, or physical findings). VARIANT OF UNCERTAIN SIGNIFICANCE: Variant for which current information is insufficient to determine pathogenicity. A substantial proportion of variants of uncertain significance prove to be benign as more data become available. A VARIANT OF UNCERTAIN SIGNIFICANCE SHOULD NOT BE USED IN CLINICAL DECISION MAKING. Efforts to resolve the classification of the variant as pathogenic or benign should be undertaken. NO VARIANTS REPORTED; No differences from the standard human genome reference sequence were found, or only genetic variants known to be benign polymorphisms were found, or only silent variants or deep intronic variants not known to affect gene function were found. INCIDENTAL FINDINGS: Variants in genes related to the patient s phenotype are included in this report. In addition, actionable incidental findings are reported according to the ACMG Standards and Guidelines (see Recommendations for Reporting of Secondary Findings in Clinical Exome and Genome Sequencing, www.acmg.net/ACMG/ Publications/Polic y_Statements/). LIMITATIONS It is possible that this patient has a variant not detected by the methodology used. This study has limited sensitivity and specificity to detect large-scale inversions, balanced translocations, or trinucleotide repeat expansions. The significance of variants outside of the coding region and intron-exon junctions often cannot be determined. Whole genome sequence is not a validated method to assess the mitochondrial genome. This patient may have a pathogenic variant in a gene not known to be associated with a human disease. Approximately three quarters of human genes have not yet been linked to a human phenotype. METHODS DNA is extracted from peripheral blood samples, cultured cells, saliva samples (Oragene kit), or tissue samples. The DNA is analyzed to determine if the quality and quantity are sufficient for high-throughput sequencing. The whole genome is sequenced on the Illumina platform. GATK best practices are applied to identify genetic variants, and variants are annotated by ANNOVAR and a custom pipeline that includes allele frequencies, OMIM and ClinVAR citations, and numerous in silico attributes. The annotated data are analyzed for the presence of genetic variants among genes relevant to the patient s phenotype. The variants are filtered for relevance to human disease based on their population frequency, information in disease-specific databases, and in silico measures of their effect on mRNA splicing or protein function. An [facility]-certified clinical special educator interprets the results in the context of the clinical information submitted by the referring health care provider. Potentially relevant variants with low quality or lying in poorly mapped regions are confirmed with Gwendolyn sequence. PERFORMANCE CHARACTERISTICS Coverage of the human genome: Mean coverage is greater than 50X. Over 96% of regions containing genes (exons and intron-exon boundaries) are covered at >50X. Analytical sensitivity: Failure to detect a genetic variant in the analyzed DNA regions may result from poor coverage of a specific region of the genome, errors in specimen handling, or errors in computer-assisted analysis and data review. The sensitivity of this assay based on comparison with high-confidence calls from the [facility] Genome Reference Material (Alexsander et al., Nature Biotechnology 2014) is at least 99.8% for single nucleotide variants and 96.24% for indels 1-58 base pairs in length. Based on limited internal data, this assay is highly sensitive for exon-size or larger deletions and duplications involving two or more contiguous exons. The assay may not reliably detect single-exon deletions or duplications. The rate of errors related to specimen processing is estimated from validation studies to be less than one percent (<1%). Analytical specificity: The incidence of a false positive report of a genetic variant resulting from technical error is very low (<1%) because of independent confirmation or direct visualization of the data for all genetic variants. The incidence of a false positive report of a genetic variant resulting from errors in specimen handling and tracking is estimated from validation studies to be less than one percent (<1%). THIS TEST WAS DEVELOPED AND ITS PERFORMANCE CHARACTERISTICS DETERMINED BY THE LABORATORY. TESTS DEVELOPED AND USED BY INDIVIDUAL LABORATORIES ARE NOT SUBJECT TO FDA APPROVAL. High Throughput Sequence data used in this test was generated in cooperation with: [facility] [address] [place] [id number] [place] [address] License [id number] 02/15/2022 4:36 PM EST [facility] Genes Analyzed Candidate genes for vascular malformation: ACVRL1, ADAMTS3, AKT1, AKT2, AKT3, ANTXR1, BMPR2, BRAF, CAV1, CCBE1, CCM2, CDKN1C, ENG, EPHB4, FAT4, FGFR4, FLT4, FOXC2, GATA2, GDF2, GJC2, GLMN, GNA11, GNAQ, IKBKG, KCNK3, KDR, KIF11, KRAS, KRIT1, MAP2K1, MAP3K3, MTOR, NRAS, PDCD10, PDGFRB, PIEZO1, PIK3CA, PIK3R2, PTEN, RASA1, SMAD4, SOX18, STAMBP, ALAN , VEGFC Candidate genes for overgrowth: ABCC9, AKT2, AKT3, ASPA, ASXL2, BRWD3, CCND2, CDKN1C, CHD4, CHD8, CUL4B, DICER1, DIS3L2, DNMT3A, EED, EZH2, GFAP, GLI3, GNAS, GPC3, HEPACAM, HERC1, KPTN, L1CAM, MED12, MLC1, MPDZ, MTOR, NFIA, NFIX, NONO, NPR2, NSD1, OFD1, PDGFRB, PHF21A, PIK3R2, AEU1Q4S, DII4B8Y, BJJ8Y1O, PTCH1, PTEN, RAB39B, RASA1, RIN2, XRT348, SETD2, SHERRI, SYN1, TBC1D7, TCF20, UPF3B, ZBTB20 02/15/2022 4:36 PM EST [facility] Reanalysis of Gene Sequencing Electronic Signature This report is electronically signed by: Danish Chaves, Ph.D. [facility], Hr Leader, DNA Diagnostic Lab This report is electronically signed by: Danish Chaves on 02/15/22 at 4:36 PM I have reviewed the interpretation and agree with the results. 02/15/2022 4:36 PM EST [facility] Deoxyribonucleic acid specimen (specimen) Collection / Unknown 04/21/2021 3:59 PM EST 04/21/2021 3:59 PM EST Oziel Isabel MD GENETIC TESTING Final Result Performing Organization Address [facility]/State/[facility] Co de Phone Number [facility] [address] [place] [address] [address] [place] [address] documented in this encounter Visit Diagnoses Diagnosis Hemihypertrophy (HC CODE) Other specified congenital anomalies Family history of brain aneurysm Family history of stroke (cerebrovascular) Aneurysm (HC Code) Aneurysm of unspecified site documented in this encounter Additional Health Concerns Assessment Noted Time PHQ-9 Depression Total Score: 0 01/01/20 21 4:42 AM EDT documented as of this encounter Care Teams Metallurgical Specialist Relationship Specialty Start Date End Date Alec Dahl MD [address] [place] [phone] PCP - General Internal Medicine 02/23/20 documented as of this encounter
--- OUTSIDE RECORDS SUMMARY | 2024-11-09 14:05 | XMS_ITS | Encounter Summary ---
Author Organization [facility] Address [address] [place] [phone] Care Team Providers Care Factory Superintendent Name Role Phone Alec Dahl MD Primary Care Provider [phone] Reason for Visit * Reason Comments Other Encounter Details Date Type Department Care Team (Late st Contact Info) Description 04/21/2021 Telephone [facility]ARE [facility] SCHEDULING [address] [place], [place] [phone] James Reynolds MD [address] [place] [address] Other Social History Tobacco Use [...] on file documented as of this encounter Miscellaneous Notes * Telephone Encounter - Angela Gutierrez APRN - 04/25/2021 10:23 AM EST I reviewed case with Dr. Reynolds- needs to remain on DAPT for 6 months. After she sees endocrine candiscuss with endocrine surgery if biopsy needs to be done sooner. Due for DSA around May. * Telephone Encounter - Demian Wen RN - 04/21/2021 3:17 PM EST She is asking when she can have the angiogram needed prior to coming off anticoagulant medications because she needs a biopsy of her thyroid but cannot have it done while she is on blood thinners. Told her we would get back to her with timing. * Telephone Encounter - Tricia Zambrano - 04/21/2021 2:45 PM EST [facility] MESSAGE Time of call: 2:45 PM Caller: nory Caller's relationship to patient: Calling from Reason for call: Pt called and stated he would like someone to call his bcause she hasquestions about her health and would like to speak If not feeling well, what are symptoms: If having symptoms, how long have the symptoms been present: Does caller request to speak to someone urgently? yes Best telephone number for callback:[phone] Best time to return call: Permission to leave message: Tricia Zambrano documented in this encounter Plan of Treatment Upcoming Encounters Date Type Department Care Team (Late st Contact Info) Description 11/16/2024 2:45 PM EDT Telemedicine Neurosurgery at 800 [facility] [address] [facility] [place] [address] James Reynolds MD 800 [place] [phone] 12/21/2024 10:00 AM EDT Office Visit [facility] [address]nd [place] [address] Oziel Isabel MD [address] [place] [address], [place] [phone] documented as of this encounter Visit Diagnoses Not on filedocumented in this encounter Additional Health Concerns Assessment Noted Time PHQ-9 Depression Total Score: 0 01/01/20 21 4:42 AM EDT documented as of this encounter Care Teams Factory Superintendent Relationship Specialty Start Date End Date Alec Dahl MD [address] [place] [phone] PCP - General Internal Medicine 02/23/20 documented as of this encounter
--- OUTSIDE RECORDS SUMMARY | 2024-11-09 14:05 | XMS_ITS | Clinical Summary ---
Author Organization [facility] [address] Address [address] [place] [address] Care Team Providers Care Button Inspector Name Role Phone Alec Dahl MD Primary Care Provider [phone] Allergies Active Allergy Reactions Criticality Noted Date Comments Latex Itching Low 04/20/2020 Medications oxyCODONE 5 mg TbOr as needed. Active dronabinoL (MARINOL) 5 mg capsule TAKE 1 CAPSULE BY MOUTH TWICE A DAY BEFORE LUNCH AND EVENING MEAL/DINNER Active dextroampheta mine-amphetam ine (ADDERALL) 20 mg tablet Take 1 tablet (20 mg total) by mouth daily. Active prazosin (MINIPRESS) 1 mg capsule Take 1 capsule (1 mg total) by mouth nightly. Active cholecalcifer ol, vitamin D3, 1,250 mcg (50,000 unit) capsule cholecalciferol (vitamin D3) 1,250 mcg (50,000 unit) capsule TAKE 1 TABLET (50,000 UNITS TOTAL) BY MOUTH ONCE A WEEK. 021 Active desvenlafaxin e 50 mg TR24 021 Active famotidine (PEPCID) 40 mg tablet famotidine 40 mg tablet Active folic acid (FOLVITE) 1 mg tablet folic acid 1 mg tablet TAKE 1 TABLET BY MOUTH EVERY DAY Active amitriptyline (ELAVIL) 10 mg tablet Take 1 tablet (10 mg total) by mouth nightly. 30 tablet 12/02/2 021 Active ticagrelor (BRILINTA) 90 mg tabletIndicat ions:Aneurysm (HC Code) Take 1 tablet (90 mg total) by mouth 2 (two) times daily. 60 tablet 6 Active Additional Information Patient not taking.Reported on 04/03/2024 fluticasone propionate (FLOVENT HFA) 44 mcg/actuation inhaler Inhale 2 puffs into the lungs 2 (two) times daily. 10.6 g Active Additional Information Patient not taking.Reported on 04/03/2024 albuterol sulfate (VENTOLIN HFA) 90 mcg/actuation HFA aerosol inhaler Inhale 2 puffs into the lungs every 6 (six) hours as needed for wheezing. 18 g Active lamoTRIgine (LAMICTAL) 25 mg immediate release tablet Take 50 mg by mouth daily. Active desvenlafaxin e succinate (PRISTIQ) 50 mg 24 hr extended release tablet Take 1 tablet (50 mg total) by mouth daily. Active traZODone (DESYREL) 50 mg tablet TAKE 1 TO 3 TABS NIGHTLY NEEDED FOR SLEEP Active predniSONE (DELTASONE) 20 mg tablet TAKE 3TABS BY MOUTH DAILY FOR 2DAYS, 2TABS DAILY FOR 4DAYS, 1TAB DAILY-8 DAYS, THEN FINSIH DAILY Active dronabinoL (MARINOL) 10 mg capsule TAKE 1 CAPSULE ORALLY TWICE A DAY ADMINISTER BEFORE LUNCH AND EVENING MEAL/DINNER Active metoclopramid e HCl (REGLAN) 10 mg tablet TAKE 1 TABLET BY MOUTH EVERY 8 HOURS NEEDED FOR HEADACHE 60 tablet 023 Active ARIPiprazole (ABILIFY) 2 mg tablet Take 1 tablet (2 mg total) by mouth daily. Active aspirin 81 mg EC delayed release tabletIndicat ions:Aneurysm (HC Code) TAKE 1 TABLET BY MOUTH EVERY DAY 90 tablet 3 025 Active divalproex (DEPAKOTE DR) 500 mg delayed release tablet Take 500 mg by mouth daily. 2021 Discontinued aspirin 81 mg EC delayed release tabletIndicat ions:Aneurysm (HC Code) take 1 tablet by mouth every day 90 tablet 3 024 2024 Discontinued Active Problems Problem Noted Date Diagnosed Date Thyroid nodule 05/15/2021 Overview (05/15/2021): 40 y/o female with complicated medical history and recent repair of an intercranial aneurysm 12/30/20. Follow up CTA 02/13/21- CTA Mini [place]-Small nodule noted on L 5.8 mm 04/13/21- US - R lobe 1.8 x 5.8 x 1.9 cm L lobe 1.5 x 4.7 x 2 cm Isthmus 0.3 cm R mid nulde 0.9 x 0.8 x 0.3 cm L mid 0.8 x 0.6 x 0.5 cm & 1.5 x 0.6 x 0.6 cm. Recommended FNA of Nodule. 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 [address] Angela Gutierrez APRN Medication Refill 08/21/2024 Telephone Neurosurgery at 800 [facility] [address] [facility] [place] [address] Angela Gutierrez, CORPORATE TRUST OFFICER Results 08/20/2024 4:18 PM EDT - 08/20/2024 11:59 PM EDT Hospital Encounter [facility] FILE ROOM 20 [place] [address] James Reynolds MD Discharge Disposition: Home or Self Care 08/19/2024 Scanned Document CARE CENTER SCHEDULING 25 [facility] [place] [address] Provider, Historical 08/11/2024 Orders Only Neurosurgery at 800 [facility] 800 [facility] [place] [address] James Reynolds MD Intracranial aneurysm (HC CODE) (Primary Dx) 08/11/2024 Telephone Neurosurgery at 800 [facility] 800 [facility] [address] James Reynolds MD Other from Last 3 Months Social History Tobacco Use Types Packs/Day Years Used Date Smoking Tobacco: Every Day Cigarettes Smokeless Tobacco: Never Alcohol Use Standard Drinks/Week Comments Not Currently 0 (1 standard drink = 0.6 oz pur e alcohol) PHQ-2 Answer Date Recorded PHQ-2 Total Score 0 12/31/2020 Comments No Sex and Gender Information Value Date Recorded Sex Assigned at Not on file Legal Sex Female 10:04 AM EST Gender Identity Female 09/16/2020 4:45 PM EDT Sexual Orientation Not on file Last Filed Vital Signs Vital Sign Reading Time Taken Comments Blood Pressure 105/71 07/13/2021 11:30 AM EDT Pulse 71 07/13/2021 11:30 AM EDT Temperature 36.6 C (97.9 F) 07/13/2021 10:00 AM EDT Respiratory Rate 16 07/13/2021 11:30 AM EDT Oxygen Saturation 97% 07/13/2021 11:30 AM EDT Inhaled Oxygen Concentration - - Weight 78.5 kg (173 lb) 07/13/2021 8:52 AM EDT Height 156.2 cm (5' 1.5 ) 07/13/2021 8:52 AM EDT Body Mass Index 32.16 07/13/2021 8:52 AM EDT Plan of Treatment Upcoming Encounters Date Type Department Care Team (Late st Contact Info) Description 11/16/2024 2:45 PM EDT Telemedicine [facility] at [address] [facility] [place] [address] James Reynolds MD 800 [place] [phone] 12/21/2024 10:00 AM EDT Office Visit [facility] 35 [facility] 2nd [place] [address] Oziel Isabel MD [address] [place] [phone] Health Maintenance Due Date Last Done Comments HIV screening 1994 Hepatitis C screening 12/11/1999 Pneumococcal Vaccine (2 - 49 years) (1 of 2 - PCV) 2000 Cervical cancer screening 2002 Breast cancer screening 2021 Lipid disorder screening 2021 Influenza vaccine 09/25/2024 Covid-19 vaccine series ( season) 2024 07/12/2020, 06/11/2020 Tetanus adult (Td q 10,TDAP once) 06/13/2027 06/12/2017, 02/11/2015 RSV Immunization (1 - 1-dose 75+ series) 2056 Meningococcal B Vaccine Aged Out No l onger eligible based on patient's age to complete this topic Meningococcal Vaccine Aged Out No trudy clarissa eligible based on patient's age to complete this topic Medical Devices Implanted Type Area Biochemistry Professor Device Identifier Shelf Expiration Date Model / Serial / Lot Coil Hydroframe 10 Vtrak 5x20 - [id number] Implanted:Qty: 1 on 12/30/2020 by James Reynolds MD at [facility] [address] Implant TERUMO AMARJIT 07/25/2025 [id number] / / [id number] 3.75mm X 16mm Pipeline Flex Embolization Device With Shield Technology Implanted:Qty: 1 on 12/30/2020 by James Reynolds MD at [facility] [address] Implant [employer] PERIPHERAL (FORMERLY COVIDIEN VASCULAR / EV3) 11/05/2023 [id number] / / [id number] 120cm X 10mm X 30cm Phenom Plus Catheter Implanted:Qty: 1 on 12/30/2020 by James Reynolds MD at [facility] [address] Implant [employer] PERIPHERAL (FORMERLY COVIDIEN VASCULAR / EV3) [id number] 04/27/2023 [id number] / / [id number] Procedures Procedure Name Priority Date/Time Associated Diagnosis Comments [facility] BRAIN WO, MRA HEAD Routine 08/19/2024 7:17 PM EDT [facility] MRA HEAD Routine 08/19/2024 12:48 PM EDT from Last 3 Months Results * [facility] MRI Brain wo, MRA Head (08/19/2024 7:17 PM EDT) Narrative RAD4 - 08/20/2024 7:17 PM EDT DISCLAIMER This procedure captures images only. There is no report. James Reynolds MD IMG [facility] NON REP ORDE BRIAN Final Result RAD4 * [facility] MRA Head (08/19/2024 12:48 PM EDT) Anatomical Region Laterality Modality Head, Vascular, Ortho Head Magne tic Resonance Historical Provider IMG [facility] NON REP ORDERABLES F inal Result from Last 3 Months Insurance BS Advance Directives * Full ACLS (Latest Code Status on File) Date Activated Date Inactivated Comments 12/30/2020 6:09 PM 12/31/2020 8:08 PM Care Teams Button Inspector Relationship Specialty Start Date End Date Alec Dahl MD [address] [place] [phone] PCP - General Internal Medicine 02/23/20
--- OUTSIDE RECORDS SUMMARY | 2024-11-09 14:05 | XMS_ITS | Clinical Summary ---
Author Organization [facility] Address [address] [address] Phone Care Team Providers Care It Compliance Analyst Name Role Phone Alec Dahl MD Primary Care Provider [phone] Allergies Active Allergy Reactions Criticality Noted Date Comments Latex 11/09/2020 Medications dextroamphetamine -amphetamine (ADDERALL) 20 mg Tab tablet Take 20 mg by mouth daily. Active cholecalciferol (VITAMIN D3) 50,000 unit capsule Take 50,000 Units by mouth once a week. 1 Active divalproex (DEPAKOTE) [address] tablet Take 250 mg by mouth daily. 1 Active enoxaparin (LOVENOX) 40 mg/0.4 mL Syrg subcutaneous syringe Inject 40 mg under the skin daily. 1 Active folic acid (FOLVITE) 1 MG tablet Take 1 mg by mouth daily. 1 Active oxyCODONE 5 MG immediate release tablet Take 5 mg by mouth every 4 (four) hours as needed. 0 Active prazosin (MINIPRESS) 1 MG capsule Take 1 mg by mouth nightly at bedtime. 1 Active Social History Tobacco Use Types Packs/Day Years [...] Orientation Straight 11/01/2020 4: 56 PM EDT Last Filed Vital Signs Vital Sign Reading Time Taken Comments Blood Pressure 119/84 04/12/2021 2:21 PM EST Pulse 97 04/12/2021 2:21 PM EST Temperature 36 C (96.8 F) 04/12/2021 2:21 PM EST Respiratory Rate 18 04/12/2021 2:21 PM EST Oxygen Saturation 98% 04/12/2021 2:21 PM EST Inhaled Oxygen Concentration - - Weight 85.7 kg (189 lb) 04/12/2021 2:21 PM EST Height - - Body Mass Index - - Plan of Treatment Health Maintenance Due Date Last Done Comments VALPROIC ACID (DEPAKENE) LEVEL 1981 DEPRESSION SCREENING 1993 SMOKING Hx and SMOKELESS TOBACCO SCREENING 1994 HEPATITIS C SCREENING 12/11/1999 HIV ONE-TIME SCREENING (18-6 5 YEARS) 12/11/1999 PAP SMEAR 2002 MAMMOGRAM 2021 INFLUENZA VACCINE (#1) 2024 COVID-19 VACCINE ( - 2023-2 5 season) 2024 Adult Td,Tdap Booster 06/13/2027 06/12/2017 , 02/11/2015 HEPATITIS A VACCINES Aged Out No long er eligible based on patient's age to complete this topic HIB VACCINES Aged Out No longer eligi ble based on patient's age to complete this topic MENINGOCOCCAL VACCINES (ACWY) Aged Out No longer eligible based on patient's age to complete this topic MENINGOCOCCAL VACCINES (B) Aged Out N o longer eligible based on patient's age to complete this topic PNEUMOCOCCAL VACCINES (0-49 years) Aged Out No longer eligible b ased on patient's age to complete this topic Medical Devices Not on file Insurance [employer] [place] OUT OF STATE PPO [place] OUT OF STATE PPO BLUE [employer] OUT OF STATE PPO BLUE [place] OUT OF STATE PPO [employer] [place] OUT OF STATE PPO BLUE [place] OUT OF STATE PPO BLUE [place] OUT OF STATE PPO BLUE [employer] OUT OF STATE PPO OUT OF STATE PPO Care Teams It Compliance Analyst Relationship Specialty Start Date End Date Alec Dahl MD [address] [place] [address] [address] [place] [address] PCP - General Internal Medicine 09/20/20 Additional Source Comments The information contained in this document represents components of the legal health record. It is not the complete legal health record.[facility]
--- OUTSIDE RECORDS SUMMARY | 2024-11-09 14:05 | XMS_ITS | Encounter Summary ---
Author Organization [facility] Address [address] [place] [phone] Care Team Providers Care Drying Frame Operator Name Role Phone Alec Dahl MD Primary Care Provider [phone] Reason for Visit * Reason Comments Other Encounter Details Date Type Department Care Team ([facility] st Contact Info) Description 01/03/2021 Telephone CARE CENTER SCHEDULING 25 [place], [place] [address] James Reynolds MD 800 [place] [address] Other Social History Tobacco Use [...] Telephone Encounter - Gael Jorge RN - 01/03/2021 3:25 PM EST Took call from ED doctor wanting to speak to Dr Reynolds. I provided contact number to MD. * Telephone Encounter - Gael Jorge RN - 01/03/2021 2:10 PM EST Returned call to pt's . He states pt is currently at [facility] ED for Left bloodshot eye. He states that she has been coughing a lot because of the packing in her nose. On direct questioning he denies pt has any s/s of stroke. I advised him I would speak to the SERVANDO/ Dr Reynolds and call him back. He verbalized understanding. I encouraged him to call with any further questions or concerns. * Telephone Encounter - Tricia Zambrano - 01/03/2021 12:30 PM EST CARE RAIFORD MESSAGE Time of call: 12:30 PM Caller: JUAN JOSE Caller's relationship to patient: SELF Calling from Reason for call: Pt called she has surgery with [facility] on the 5th., she has a head eye is blood shot and she is afraid. She said he may go to the ED but would like a call back PILY If not feeling well, what are symptoms: If having symptoms, how long have the symptoms been present: Does caller request to speak to someone urgently? yes Best telephone number for callback: [phone] Best time to return call: anytime Permission to leave message: yes Tricia Zambrano documented in this encounter Plan of Treatment Upcoming Encounters Date Type Department Care Team (Late st Contact Info) Description 11/16/2024 2:45 PM EDT Telemedicine Neurosurgery at [address] [address] James Reynolds MD [address] [place] [phone] 12/21/2024 10:00 AM EDT Office Visit [facility] [address] 2nd [place] [address] Oziel Isabel MD [address] [phone] documented as of this encounter Visit Diagnoses Not on filedocumented in this encounter Additional Health Concerns Assessment Noted Time PHQ-9 Depression Total Score: 0 01/01/20 21 4:42 AM EDT documented as of this encounter Care Teams Drying Frame Operator Relationship Specialty Start Date End Date Alec Dahl MD [address] [place] [phone] PCP - General Internal Medicine 02/23/20 documented as of this encounter
--- OUTSIDE RECORDS SUMMARY | 2024-11-09 14:05 | XMS_ITS | Encounter Summary ---
Author Organization [facility] Address [address] [place] [phone] Care Team Providers Care Label Paster Name Role Phone Alec Dahl MD Primary Care Provider [phone] Encounter Details Date Type Department Care Team (Late st Contact Info) Description 03/07/2020 Scanned Document [facility] Endocrinology [address] [place] [address] Mariam Reese MD [address] [place] [phone] Social History Tobacco Use Types Packs/Day Years Used Date Smoking Tobacco: Never Assessed Comments Unknown Sex and Gender Information Value Date Recorded Sex Assigned at Not on file Legal Sex Female 10:04 AM EST Gender Identity Female 09/16/2020 4:45 PM EDT Sexual Orientation Not on file documented as of this encounter Plan of Treatment Upcoming Encounters Date Type Department Care Team (Late st Contact Info) Description 11/16/2024 2:45 PM EDT Telemedicine [facility] at 800 [facility] [address] [place] [address] James Reynolds MD 800 [place] [phone] 12/21/2024 10:00 AM EDT Office Visit [facility] [address] [place] [address] Oziel Isaebl MD [address] [place] [phone] documented as of this encounter Visit Diagnoses Not on filedocumented in this encounter Care Teams Label Paster Relationship Specialty Start Date End Date Alec Dahl MD [address] [place] [phone] PCP - General Internal Medicine 02/23/20 documented as of this encounter
--- OUTSIDE RECORDS SUMMARY | 2024-11-09 14:05 | XMS_ITS | Encounter Summary ---
Author Organization [facility] Address [address] [place] [address] Care Team Providers Care Wood Preserving Plant Laborer Name Role Phone Alec Dahl MD Primary Care Provider [phone] Reason for Visit * Reason Comments Other Encounter Details Date Type Department Care Team ([facility] Contact Info) Description 04/17/2021 Telephone CARE CENTER SCHEDULING 25 [place], [place] [phone] Manjinder Gutierrez, DIRECTOR OF RESTAURANT 800 [place] [address] Other Social History Tobacco Use [...] encounter Miscellaneous Notes * Telephone Encounter - Manjinder Gutierrez APRN - 04/17/2021 1:33 PM EST Spoke with Selma- given additional clinical info, appointment scheduled * Telephone Encounter - Tricia Zambrano - 04/17/2021 1:06 PM EST CARE CENTER MESSAGE Time of call: 1:06 PM Caller: selma Caller's relationship to patient: Calling from Reason for call: Selma from [facility] they got a referral from manjinder gutierrez and called for additional info, and would like a call back If not feeling well, what are symptoms: If having symptoms, how long have the symptoms been present: Does caller request to speak to someone urgently? Best telephone number for callback: [phone] Best time to return call: Permission to leave message: Tricia Zambrano documented in this encounter Plan of Treatment Upcoming Encounters Date Type Department Care Team (Late st Contact Info) Description 11/16/2024 2:45 PM EDT Telemedicine Neurosurgery at [address] [facility] [address] [facility] [place] [address] James Reynolds MD [address] [place] [phone] 12/21/2024 10:00 AM EDT Office Visit [facility] [address]nd [place] [address] Oziel Isabel MD [address] [place] [phone] documented as of this encounter Visit Diagnoses Not on filedocumented in this encounter Additional Health Concerns Assessment Noted Time PHQ-9 Depression Total Score: 0 01/01/20 21 4:42 AM EDT documented as of this encounter Care Teams Wood Preserving Plant Laborer Relationship Specialty Start Date End Date Alec Dahl MD [address] [place] [phone] PCP - General Internal Medicine 02/23/20 documented as of this encounter
--- OUTSIDE RECORDS SUMMARY | 2024-11-09 14:05 | XMS_ITS | Encounter Summary ---
Author Organization [facility] and [facility] Address [address] [place] [phone] Care Team Providers Care Telesales Supervisor Name Role Phone Alec Dahl MD Primary Care Provider [phone] Encounter Details Date Type Department Care Team (Late st Contact Info) Description 03/07/2020 Scanned Document [facility] Endocrinology [address] [place] [address] Mariam Reese MD [address] [place] [phone] Social History Tobacco Use Types Packs/Day Years [...] PM EDT Telemedicine [facility] at [address] [facility] [address] [place] [address] James Reynolds MD 800 [place] [phone] 12/21/2024 10:00 AM EDT Office Visit [facility] [address] [place] [address] Oziel Isabel MD [address] [place] [phone] documented as of this encounter Visit Diagnoses Not on filedocumented in this encounter Care Teams Telesales Supervisor Relationship Specialty Start Date End Date Alec Dahl MD [address] [place] [phone] PCP - General Internal Medicine 02/23/20 documented as of this encounter
--- OUTSIDE RECORDS SUMMARY | 2024-11-09 14:05 | XMS_ITS | Encounter Summary ---
Author Organization [facility] and [facility] Address [address] [place] [phone] Care Team Providers Care Endless Steamer Tender Name Role Phone Alec Dahl MD Primary Care Provider [phone] Reason for Referral * Imaging (Routine) - Closed Specialty Diagnoses / Procedures Referred By Blanka mullen Referred To Contact Diagnostic Radiology Procedures CTA Head Neck w and/or wo IV Contrast [facility] SCHEDULING 25 [place] [address] Phone: tel: Referral ID Status Reason Start Date Expiration Date Visits Re quested Visits Authorized [id number] Closed 02/13/2021 02/13/2022 1 1 Encounter Details Date Type Department Care Team (Late st Contact Info) Description 02/13/2021 Scanned Document [facility] SCHEDULING 25 [place] [address] ProviderNaina . Social History Tobacco Use Types Packs/Day Years [...] [facility] at [address] [facility] [place] [address] James Reynolds MD 800 [place] [phone] 12/21/2024 10:00 AM EDT Office Visit [facility] [address] [place] [address] Oziel Isabel MD 1 [facility] 2 [place] [phone] documented as of this encounter Procedures Procedure Name Priority Date/Time Associated Diagnosis Comments CTA HEAD NECK W AND/OR WO IV CONTRAST Routine 02/13/2021 documented in this encounter Results * CTA Head Neck w and/or wo IV Contrast (02/13/2021) Anatomical Region Laterality Modality Head, Neck, Ortho Head, RCC CTA Neck Computed Tomography us Historical Provider IMG CT ORDERABLES Final Resu lt documented in this encounter Visit Diagnoses Not on filedocumented in this encounter Additional Health Concerns Assessment Noted Time PHQ-9 Depression Total Score: 0 01/01/20 21 4:42 AM EDT documented as of this encounter Care Teams Endless Steamer Tender Relationship Specialty Start Date End Date Alec Dahl MD [address] [place] [address] 1 [place] [phone] PCP - General Internal Medicine 02/23/20 documented as of this encounter
--- OUTSIDE RECORDS SUMMARY | 2024-11-09 14:05 | XMS_ITS | Encounter Summary ---
Author Organization [facility] and [facility] Address [address] [place] [phone] Care Team Providers Care V Belt Coverer Name Role Phone Alec Dahl MD Primary Care Provider [phone] Reason for Visit * Reason Comments Medication Refill Encounter Details Date Type Department Care Team (Late Contact Info) Description 02/28/2021 Refill [facility] at [address] [place] [address] Angela Gutierrez, ALAN [address] [place] [phone] Medication Refill Social History Tobacco Use Types [...] 2:45 PM EDT Telemedicine [facility] at [address] [place] [address] James Reynolds MD [address] [place], [place] [address], [place] [address] 12/21/2024 10:00 AM EDT Office Visit [facility] [address]nd [place] [address] Oziel Isabel MD [address] [place] [phone] documented as of this encounter Visit Diagnoses Diagnosis Aneurysm (HC Code) Aneurysm of unspecified site documented in this encounter Additional Health Concerns Assessment Noted Time PHQ-9 Depression Total Score: 0 01/01/20 21 4:42 AM EDT documented as of this encounter Care Teams V Belt Coverer Relationship Specialty Start Date End Date Alec Dahl MD [address] [place] [phone] PCP - General Internal Medicine 02/23/20 documented as of this encounter
--- OUTSIDE RECORDS SUMMARY | 2024-11-09 14:05 | XMS_ITS | Encounter Summary ---
Author Organization [facility] [employer] [facility] and [facility] Address [address] [place] [phone] Care Team Providers Care Patient Access Manager Name Role Phone Alec Dahl MD Primary Care Provider [phone] Reason for Referral * Imaging (Routine) - Closed Specialty Diagnoses / Procedures Referred By Contac t Referred To Contact Diagnostic Radiology Procedures MRI Lumbar Spine without IV Contrast External, Provider Referral ID Status Reason Start Date Expiration Date Visits Re quested Visits Authorized [id number] Closed 04/27/2020 04/27/2021 1 1 Encounter Details Date Type Department Care Team (Late st Contact Info) Description 04/27/2020 Scanned Document [facility] Endocrinology [address] [place] [id number] [address] [place] [address] External, Provider Social History Tobacco Use Types Packs/Day Years Used Date Smoking Tobacco: Every Day Cigarettes Smokeless Tobacco: Never Comments Unknown Sex and Gender Information Value Date Recorded Sex Assigned at Not on file Legal Sex Female 10:04 AM EST Gender Identity Female 09/16/2020 4:45 PM EDT Sexual Orientation Not on file documented as of this encounter Plan of Treatment Upcoming Encounters Date Type Department Care Team (Late st Contact Info) Description 11/16/2024 2:45 PM EDT Telemedicine Neurosurgery at [address] 800 [place] [address] James Reynolds MD [address] [place] [address], [place] [phone] 12/21/2024 10:00 AM EDT Office Visit [facility] [address]nd [place] [address] Oziel Isabel MD 1 [facility] 2 [place] [phone] documented as of this encounter Procedures Procedure Name Priority Date/Time Associated Diagnosis Comments MRI LUMBAR SPINE WO IV CONTRAST Routine 01/15/2019 documented in this encounter Results * MRI Lumbar Spine without IV Contrast (01/15/2019) Anatomical Region Laterality Modality L-spine, Spine, Ortho L-spine Ma gnetic Resonance us Provider External IMG MRI ORDERABLES Final Resul t documented in this encounter Visit Diagnoses Not on filedocumented in this encounter Care Teams Patient Access Manager Relationship Specialty Start Date End Date Alec Dahl MD [address] [place] [address] 1 [place] [phone] PCP - General Internal Medicine 02/23/20 documented as of this encounter
--- OUTSIDE RECORDS SUMMARY | 2024-11-09 14:06 | XMS_ITS | Encounter Summary ---
Author Organization [facility] and [facility] Address [address] [place] [phone] Care Team Providers Care Forensic Chemist Name Role Phone Alec Dahl MD Primary Care Provider [phone] Encounter Details Date Type Department Care Team (Late st Contact Info) Description 02/18/2024 Scanned Document [facility] Tumor [facility] at [facility] 35 [facility], 8th [place] [address] Provider, historical . Social History Tobacco Use Types Packs/Day [...] 2:45 PM EDT Telemedicine Neurosurgery at [address] [address] James Reynolds MD [address] [place] [phone] 12/21/2024 10:00 AM EDT Office Visit [facility] [address] [place] [address] Oziel Isabel MD [address] [place] [address] documented as of this encounter Procedures Procedure Name Priority Date/Time Associated Diagnosis Comments CT RESULT SCAN Routine 02/18/2024 8:46 AM EST documented in this encounter Results * CT Result Scan (02/18/2024 8:46 AM EST) us Historical Provider IMG SCAN REPORTS Final Resul t documented in this encounter Visit Diagnoses Not on filedocumented in this encounter Additional Health Concerns Assessment Noted Time PHQ-9 Depression Total Score: 0 01/01/20 21 4:42 AM EDT documented as of this encounter Care Teams Forensic Chemist Relationship Specialty Start Date End Date Alec Dahl MD [address] [place] [phone] PCP - General Internal Medicine 02/23/20 documented as of this encounter
--- OUTSIDE RECORDS SUMMARY | 2024-11-09 14:06 | XMS_ITS | Encounter Summary ---
Author Organization [facility] and [facility] Address [address] [place] [phone] Care Team Providers Care Insurance Follow Up Specialist Name Role Phone Alec Dahl MD Primary Care Provider [phone] Encounter Details Date Type Department Care Team (Late st Contact Info) Description 10/04/2021 Scanned Document [facility] [address] [address] Provider, historical . Social History Tobacco Use [...] 2:45 PM EDT Telemedicine Neurosurgery at [address] [address] James Reynolds MD [address] [place] [phone] 12/21/2024 10:00 AM EDT Office Visit [facility] [address] [place] [address] Oziel Isabel MD [address] [place] [phone] documented as of this encounter Procedures Procedure Name Priority Date/Time Associated Diagnosis Comments PATHOLOGY/CYTOLOGY SCAN Routine 10/04/2021 documented in this encounter Results * Pathology/Cytology Scan (10/04/2021) us Historical Provider PATHOLOGY/CYTOLOGY ORDERABLE S Final Result documented in this encounter Visit Diagnoses Not on filedocumented in this encounter Additional Health Concerns Assessment Noted Time PHQ-9 Depression Total Score: 0 01/01/20 21 4:42 AM EDT documented as of this encounter Care Teams Insurance Follow Up Specialist Relationship Specialty Start Date End Date Alec Dahl MD [address] [place] [phone] PCP - General Internal Medicine 02/23/20 documented as of this encounter
--- OUTSIDE RECORDS SUMMARY | 2024-11-09 14:06 | XMS_ITS | Encounter Summary ---
Author Organization [facility] and [facility] Address [address] [place] [phone] Care Team Providers Care Casting Room Operator Name Role Phone Alec Dahl MD Primary Care Provider [phone] Encounter Details Date Type Department Care Team (Late st Contact Info) Description 04/17/2021 Scanned Document [facility] [address] [address] Provider, historical . Social History Tobacco Use [...] 2:45 PM EDT Telemedicine Neurosurgery at [address] [address] James Reynolds MD [address] [place] [phone] 12/21/2024 10:00 AM EDT Office Visit [facility] [address] [place] 2nd [place] [address] Oziel Isabel MD [address] [place] [phone] documented as of this encounter Procedures Procedure Name Priority Date/Time Associated Diagnosis Comments US RESULT SCAN Routine 04/13/2021 documented in this encounter Results * US Result Scan (04/13/2021) us Historical Provider IMG SCAN REPORTS Final Resul t documented in this encounter Visit Diagnoses Not on filedocumented in this encounter Additional Health Concerns Assessment Noted Time PHQ-9 Depression Total Score: 0 01/01/20 21 4:42 AM EDT documented as of this encounter Care Teams Casting Room Operator Relationship Specialty Start Date End Date Alec Dahl MD [address] [place] [phone] PCP - General Internal Medicine 02/23/20 documented as of this encounter
--- OUTSIDE RECORDS SUMMARY | 2024-11-09 14:06 | XMS_ITS | Encounter Summary ---
Author Organization [facility] Address [address] [place] [phone] Care Team Providers Care Acting Section Chief Name Role Phone Alec Dahl MD Primary Care Provider [phone] Reason for Visit * Reason Comments Other Encounter Details Date Type Department Care Team (Late st Contact Info) Description 06/14/2021 Telephone CARE [facility] SCHEDULING [address] [place], [place] [id number] James Reynolds MD [address] [place] [address] Other Social History Tobacco Use [...] Telephone Encounter - Gael Jorge RN - 06/14/2021 5:02 PM EDT Returned call to pt's . He states that pt is having a lot of back pain. Pt would like referral placed to spine doctor that Dr Reynolds mentioned during one of their first clinic visits. They would also like Dr Reynolds to speak with Dr Dahl (PCP). I advised him I would speak with Dr Reynolds aboutMD for referral and provide Dr Dahl's phone number. He verbalized understanding. I encouraged him to call with any further questions or concerns. * Telephone Encounter - Tricia Zambrano - 06/14/2021 4:50 PM EDT [facility] MESSAGE Time of call: 4:50 PM Caller: DAVID Caller's relationship to patient: Calling from Reason for call: Pt is calling again. Pt is in a lot of pain and would like to speak with some one he would like a call back. If not feeling well, what are symptoms: If having symptoms, how long have the symptoms been present: Does caller request to speak to someone urgently? Best telephone number for callback: [phone] Best time to return call: Permission to leave message: Tricia Zambrano documented in this encounter Plan of Treatment Upcoming Encounters Date Type Department Care Team (Late st Contact Info) Description 11/16/2024 2:45 PM EDT Telemedicine Neurosurgery at [address] [place] [address] James Reynolds MD [address] [place] [address] 12/21/2024 10:00 AM EDT Office Visit [facility] [address] [place] [address] Oziel Isabel MD [address] [place] [phone] documented as of this encounter Visit Diagnoses Not on filedocumented in this encounter Additional Health Concerns Assessment Noted Time PHQ-9 Depression Total Score: 0 01/01/20 21 4:42 AM EDT documented as of this encounter Care Teams Acting Section Chief Relationship Specialty Start Date End Date Alec Dahl MD [address] [place] [phone] PCP - General Internal Medicine 02/23/20 documented as of this encounter
--- OUTSIDE RECORDS SUMMARY | 2024-11-09 14:06 | XMS_ITS | Patient Health Record ---
Author Organization [facility] Address [address] [place] [address] Care Team Providers Care Director Of Home Economics Name Role Phone Sixto Yoder Unavailable [phone] Reason For Referral No Information Medications Medication SIG (Take, Route, Frequency, Duration) Notes Start Date End Date Status Amphetamine-Dextroamphe tamine 10 MG Tablet Oral 08/09/2020 Active Oxycodone *Reorder from [employer] for eRx and Interaction Alerts* 08/09/2020 Active Sertraline HCl 25 MG Tablet Oral 08/09/2020 Active Sertraline HCl 50 MG Tablet Oral 08/09/2020 Active Ibuprofen 800 MG Tablet Oral 08/09/2020 Active Prazosin HCl 1 MG Capsule Oral 08/09/2020 Active ARIPiprazole 5 MG Tablet Oral 08/09/2020 Active Desvenlafaxine Succinate ER 25 MG Tablet Extended Release 24 Hour Oral 08/09/2020 Active Divalproex Sodium ER 500 MG Tablet Extended Release 24 Hour Oral 08/09/2020 Active Omeprazole 40 MG Capsule Delayed Release Oral 08/09/2020 Acti ve Vyvanse 30 MG Capsule Oral 08/09/2020 Active Escitalopram Oxalate 10 MG Tablet Oral 08/09/2020 Active clonazePAM 0.5 MG Tablet Oral 08/09/2020 Active Desvenlafaxine Succinate ER 50 MG Tablet Extended Release 24 Hour Oral 08/09/2020 Active Trintellix 5 MG Tablet Oral 08/09/2020 Active Amphetamine-Dextroamphe t ER 20 MG Capsule Extended Release 24 Hour Oral 08/09/2020 Active Amphetamine-Dextroamphe t ER 10 MG Capsule Extended Release 24 Hour Oral 08/09/2020 Active Vyvanse 50 MG Capsule Oral 08/09/2020 Active DULoxetine HCl 30 MG Capsule Delayed Release Particles Oral 08/09/2020 Active lamoTRIgine 100 MG Tablet Oral 08/09/2020 Active DULoxetine HCl 60 MG Capsule Delayed Release Particles Oral 08/09/2020 Active Cholecalciferol 1.25 MG (44371 UT) Capsule Oral *Pick strength-form from [facility] for eRX* 08/09/2020 Active LORazepam 0.5 MG Tablet Oral 08/09/2020 Active droNABinol 5 mg Capsule Oral 08/09/2020 Active oxyCODONE HCl 5 MG Tablet Oral 08/09/2020 Active Desvenlafaxine Succinate ER 100 MG Tablet Extended Release 24 Hour Oral 08/09/2020 Active Amphetamine-Dextroamphe tamine 5 MG Tablet Oral 08/09/2020 Active lamoTRIgine 25 MG Tablet Oral 08/09/2020 Active Amphetamine-Dextroamphe tamine 20 MG Tablet Oral 08/09/2020 Active ALPRAZolam 0.25 MG Tablet Oral 08/09/2020 Active Vraylar 1.5 mg Capsule Oral 08/09/2020 Active Folic Acid 1 MG Tablet Oral 08/09/2020 Active Divalproex Sodium ER 250 MG Tablet Extended Release 24 Hour Oral 08/09/2020 Active Viibryd 10 MG Tablet Oral 08/09/2020 Active Sertraline HCl 100 MG Tablet Oral 08/09/2020 Active Social History Social History Additional Details Category Social Info Options Details Migrated Social History Migrated Social History Alcohol Intake: None 11/16/2019,Tobacco Years: Current every day smoker 11/16/2019, Plan Of Treatment No Information Insurance Providers Payer Name Payer Address Payer Phone Subscriber Number Group Number Insured Name Patient Relationship to Insured Coverage Start Date Coverage End Date [facility] [address] TRACEY BARR [id number] CROSS-JUAN JOSE YANEZ Self - patient is the insured Medical (General) History Surgical History Surgery Date(Month/Year) Caesarean section [place] teeth extraction Ankle/foot surgery
--- OUTSIDE RECORDS SUMMARY | 2024-11-09 14:06 | XMS_ITS | Encounter Summary ---
Author Organization [facility] and [facility] Address [address] [place] [phone] Care Team Providers Care Head Usher Name Role Phone Alec Dahl MD Primary Care Provider [phone] Reason for Visit * Reason Onset Date Comments Appointment 11/04/2024 Th visit switch. Encounter Details Date Type Department Care Team (Late st Contact Info) Description 11/04/2024 Telephone [facility] Neuro[facility] at 800 [facility] [address] [place] [address] James Reynolds MD [address] [place] [phone] Appointment (Th visit switch.) Social History Tobacco Use Types Packs/Day Years [...] Telephone Encounter - Gael Jorge RN - 11/09/2024 2:02 PM EDT Returned call to patient. Informed her that a referral was placed to the headache clinic. She verbalized understanding and was appreciative of the call. I encouraged her to call with any further questions or concerns. * Telephone Encounter - Yaneli Grey - 11/04/2024 6:03 PM EDT Copied from [facility] #[id number]. Topic: Scheduling - Schedule Appointment >> Nov 04, 2024 6:02 PM Yaneli Ayala wrote: Placing outbound call to Nory to reschedule an appointment. Patient rescheduled appt to a on 11/[address] Reynolds. She wanted to let him know that for the past 4 days she has been consistently getting migraines. Pod:Neurosurgery/Trauma/Surgery documented in this encounter Plan of Treatment Upcoming Encounters Date Type Department Care Team (Late st Contact Info) Description 11/16/2024 2:45 PM EDT Telemedicine Neurosurgery at 800 [facility] 800 [facility] [place] [address] James Reynolds MD [address] [place] [phone] 12/21/2024 10:00 AM EDT Office Visit [facility] - [address] [place] [address] Oziel Isabel MD [address] [place] [phone] documented as of this encounter Visit Diagnoses Not on filedocumented in this encounter Additional Health Concerns Assessment Noted Time PHQ-9 Depression Total Score: 0 01/01/20 21 4:42 AM EDT documented as of this encounter Care Teams Head Usher Relationship Specialty Start Date End Date Alec Dahl MD [address] [place] [phone] PCP - General Internal Medicine 02/23/20 documented as of this encounter
--- OUTSIDE RECORDS SUMMARY | 2024-11-09 14:06 | XMS_ITS | Encounter Summary ---
Author Organization [facility] Address [address] [place] [address] Care Team Providers Care Dot Etcher Apprentice Name Role Phone Alec Dahl MD Primary Care Provider Laci Colbert MD Unavailable [phone] Mariam Reese MD Unavailable [phone] Jenna Robert MD Unavailable [phone] Sam Glasgow MD Unavailable Sarah Beth Tee DO Unavailable [phone] Anne SchulerW Unavailable [phone] Saira Darnell DO Unavailable [phone] Lashell Crouch MD Unavailable [phone] Reason for Visit * Reason Comments Medication Refill Encounter Details Date Type Department Care Team (Late st Contact Info) Description 09/06/2022 Refill [facility] [address] [place] [address] Davis Olsen MD [address] [place] [address] Social History Tobacco Use Types Packs/Day Years Used Date Smoking Tobacco: Every Day Cigarettes Smokeless Tobacco: Never Comments:working up to it Alcohol Use Standard Drinks/Week Comments Not Currently 0 (1 standard drink = 0.6 oz pur e alcohol) PHQ-2 Answer Date Recorded PHQ-2 Total Score 4 11/10/2020 Comments No Sex and Gender Information Value Date Recorded Sex Assigned at Female 01/29/2022 4:44 PM EST Legal Sex Female 2:11 PM EDT Gender Identity Female 01/29/2022 4:44 PM EST Sexual Orientation Heterosexual (straight) 01/29 4:44 PM EST documented as of this encounter Plan of Treatment Not on file documented as of this encounter Goals Goal Patient Goal Type Associated Problems Recent Progress Patient-Stated? Author Enhance and strengthen a sense of competence in managing daily stress. Care Plan PMI-Posttraumat ic Stress Disorder (PTSD) On track( 10:18 AM EDT) Diamond Perrin LCSW Note: Patient will learn at least 3 CBT/DBT/Risk Prevention/Communication/Healthy Relationship/Anger Management/Stress Management/ Life Skills or other skills process groups per week and report in Assessment Group use of each of these skills at least once this week outside of treatment to manage symptoms. And increase at least one MARS Score by 1 point. [phone] Describe other symptoms or disorders that may also be present, such as depression or substance abuse. Care Plan PMI-Posttraumat ic Stress Disorder (PTSD) On track( 021 10:19 AM EDT) Diamond Perrin LCSW [phone] Describe the history and nature of the posttraumatic stress disorder (PTSD) and any other reactions to the trauma. Care Plan PMI-Posttraumat ic Stress Disorder (PTSD) On track( 021 12:59 PM EDT) Diamond Perrin LCSW MARS GOAL 9 - Fulfilling and satisfying life Care Plan PMI-Posttraumat ic Stress Disorder (PTSD) Minimal progress(07/2020 1:56 PM EDT) Diamond Perrin LCSW Note: Pt. will report at least a 1 point increase on the MARS-12 outcome measure item (#9) I can have a fulfilling and satisfying life on the next administration of the measure. Pt. will identify and engage in one or more leisure activities outside of therapy. Frequency weekly Duration 90 days Modality group psychotherapy, individual psychotherapy and medication maintenance documented as of this encounter Visit Diagnoses Not on filedocumented in this encounter Additional Health Concerns Active Problems Noted Date Diagnosed Date PMI-Posttraumatic Stress Disorder (PTSD) 021 Infection Onset Date Last Indicated Resolved Time R/O Respiratory Disease 05/20/2024 05/20/202404/26 11:00 PM EDT documented as of this encounter Care Teams Dot Etcher Apprentice Relationship Specialty Start Date End Date Alec Dahl MD [address] [place] [phone] PCP - General 09/22/19 Laci Colbert MD [address] [place] [address] Surgery, Orthopedic 10/05/20 Mariam Reese MD [address] [place] [address] Endocrinology 10/05/20 Jenna Robert MD [address] [place] [address] Primary Attending Psychiatry, General 12/13/2008/21 Sam Glasgow MD [address] [place] [address] Primary Attending Psychiatry, General 08/25/2109/11 Sarah Beth Tee DO [address] [place] [address] Psychiatry, General 09/28/22 03/20/23 Anne Schuler LCSW [address] [place] [address] [employer] Counter Feeder Clinical Social Work 11/08/23 Saira Darnell DO [address] [place] [address] Psychiatry, General 09/11/24 Lashell Crouch MD [address] [place] [address] Primary BH Attending Psychiatry, General 09/12/24 documented as of this encounter
--- OUTSIDE RECORDS SUMMARY | 2024-11-09 14:06 | XMS_ITS | Encounter Summary ---
Author Organization [facility] Address [address] [place] [phone] Care Team Providers Care Composition Siding Worker Name Role Phone Alec Dahl MD Primary Care Provider [phone] Encounter Details Date Type Department Care Team (Latest Contact Info) Description 09/19/2020 Transcribed Orders [facility] [address] [facility] [place] [address] Laci Colbert MD [address] [place] [address] Closed fracture of right fibula (Primary Dx); Bone fibrous dysplasia; Fibrodysplasia ossificans congenita Social History Tobacco Use Types Packs/Day Years [...] PM EDT Telemedicine [facility] [address] [id number] James Reynolds MD [address] [place] [phone] 12/21/2024 10:00 AM EDT Office Visit [facility] [address] [place] [address] Oziel Isabel MD [address] [place] [address], [place] [phone] documented as of this encounter Procedures Procedure Name Priority Date/Time Associated Diagnosis Comments COMPREHENSIVE METABOLIC PANEL Routine 09/19/2020 8:23 AM EDT Bone fibrous dysplasia Fibrodysplasia ossificans congenita VITAMIN D 1,25 (RENAL DISEASE OR HYPERCALCEMIA)(MINMETA BLAB)(Y) Routine 09/19/2020 8:23 AM EDT Bone fibrous dysplasia Fibrodysplasia ossificans congenita EXTENDED GENE ANALYSIS (DNA LAB) ([facility]) Routine 09/19/2020 8:23 AM EDT Bone fibrous dysplasia VITAMIN D, 25-HYDROXY Routine 09/19/2020 8:23 AM EDT Bone fibrous dysplasia SEDIMENTATION RATE (ESR) Routine 09/19/2020 8:23 AM EDT Closed fracture of right fibula IGF-1, INSULIN-LIKE GROWTH FACTOR 1 (BH GH L LMW YH) Routine 09/19/2020 8:23 AM EDT Bone fibrous dysplasia Fibrodysplasia ossificans congenita COLLAGEN TYPE I C-TELOPEPTIDE (CTX) Routine 09/19/2020 8:23 AM EDT Bone fibrous dysplasia Fibrodysplasia ossificans congenita CALCIUM, IONIZED, SERUM Routine 09/19/2020 8:23 AM EDT Bone fibrous dysplasia Fibrodysplasia ossificans congenita CBC WITH AUTO DIFFERENTIAL Routine 09/19/2020 8:23 AM EDT Bone fibrous dysplasia Fibrodysplasia ossificans congenita ALKALINE PHOSPHATASE, BONE SPECIFIC Routine 09/19/2020 8:23 AM EDT Bone fibrous dysplasia Fibrodysplasia ossificans congenita VITAMIN D 25 (VITAMIN D STATUS)(MINMETABLAB)(Y H) Routine 09/19/2020 8:23 AM EDT Bone fibrous dysplasia Fibrodysplasia ossificans congenita PROLACTIN Routine 09/19/2020 8:23 AM EDT Bone fibrous dysplasia Fibrodysplasia ossificans congenita CBC AND DIFFERENTIAL Routine 09/19/2020 8:23 AM EDT Bone fibrous dysplasia Fibrodysplasia ossificans congenita C-REACTIVE PROTEIN (CRP) Routine 09/19/2020 8:23 AM EDT Closed fracture of right fibula T3 Routine 09/19/2020 8:23 AM EDT Bone fibrous dysplasia Fibrodysplasia ossificans congenita TSH Routine 09/19/2020 8:23 AM EDT Bone fibrous dysplasia Fibrodysplasia ossificans congenita T4, FREE Routine 09/19/2020 8:23 AM EDT Bone fibrous dysplasia Fibrodysplasia ossificans congenita PHOSPHORUS (BH GH L LMW YH) Routine 09/19/2020 8:23 AM EDT Bone fibrous dysplasia PTH, INTACT WITHOUT CALCIUM Routine 09/19/2020 8:23 AM EDT Bone fibrous dysplasia Fibrodysplasia ossificans congenita MAGNESIUM Routine 09/19/2020 8:23 AM EDT Bone fibrous dysplasia Fibrodysplasia ossificans congenita BILIRUBIN, DIRECT Routine 09/19/2020 8:2 3 AM EDT Closed fracture of right fibula COMPREHENSIVE METABOLIC PANEL Routine 09/19/2020 8:23 AM EDT Bone fibrous dysplasia Fibrodysplasia ossificans congenita documented in this encounter Results * Bilirubin, direct (09/19/2020 8:23 AM EDT) Bilirubin, Direct <0.2 <=0.3 mg/dL 09/19/2020 8:57 AM EDT [facility] Blood Venipuncture / Unknown 09/19/2020 8:23 AM EDT 09/19/2020 8:30 AM EDT Laci Colbert MD LAB BLOOD ORDERABLES Final Re sult Performing Organization Address [facility] de Phone Number [facility] [address] [place] [address] * PTH, intact without calcium (09/19/2020 8:23 AM EDT) Parathyroid Hormone, Intact 44.3 15.0 - 65.0 pg/mL 09/19/2020 9:21 AM EDT [facility] Blood Venipuncture / Unknown 09/19/2020 8:23 AM EDT 09/19/2020 8:30 AM EDT Mariam Reese MD LAB BLOOD ORDERABLES Fin al Result Performing Organization Address [facility] Co de Phone Number [facility] [address] [place] [address] * (ABNORMAL) Comprehensive metabolic panel (09/19/2020 8:23 AM EDT) Sodium 133(L) 136 - 144 mmol/L 09/19/2020 8:57 AM EDT [facility] Potassium 4.2 3.3 - 5.1 mmol/L 09/19/2020 8:[facility] Chloride 97(L) 98 - 107 mmol/L 09/19/2020 8:57 AM EDT [facility] CO2 27 20 - 30 mmol/L 09/19/2020 8:57 AM EDT [facility] Anion Gap 9 7 - 17 09/19/2020 8:57 [facility] Glucose 92 70 - 100 mg/dL 09/19/2020 8:57 AM EDT [facility] BUN 7 6 - 20 mg/dL 09/19/2020 8:57 AM EDT [facility] Creatinine 0.64 0.40 - 1.30 mg/dL 09/19/2020 8:57 [facility] Calcium 9.0 8.8 - 10.2 mg/dL 09/19/2020 8:57 AM EDT [facility] BUN/Creatinine Ratio 10.9 8.0 - 23.0 08/26 8:57 [facility] Total Protein 7.4 6.6 - 8.7 g/dL 09/19/2020 8:57 AM EDT [facility] Albumin 3.9 3.6 - 4.9 g/dL 09/19/2020 8:57 AM EDT [facility] Total Bilirubin 0.2 <=1.2 mg/dL 09/20/19 8:57 [facility] Alkaline Phosphatase 84 9 - 122 U/L 8:57 AM EDT [facility] Alanine Aminotransferase (ALT) 7(L) 10 - 35 U/L 09/19/2020 8:57 AM EDT [facility] Comment:Calcium dobesilate c an cause artificially low ALT results at therapeutic concentrations Aspartate Aminotransferase (AST) 14 10 - 35 U/L 09/19/2020 8:57 AM EDT [facility] Globulin 3.5 2.3 - 3.5 g/dL 09/19/2020 8:57 AM EDT [facility] A/G Ratio 1.1 1.0 - 2.2 09/19/2020 8:57 AM EDT [facility] AST/ALT Ratio 2.0 See Comment 09/19/2020 8:57 AM EDT [facility] Comment: Adult with mild elevations of transaminases (< 5 times upper limit of normal): AST/ALT > 2 suggests alcoholic liver injury AST/ALT < 1 suggests non-alcoholic fatty liver disease (NAFLD) (healthy): AST/ALT can be > 3 on day 0 AST/ALT < 2 by day 5 The thresholds provided focus on the most common etiologies of elevated serum transaminase levels and the associated alteration of AST:ALT ratios; they are not intended to exclude other feasible and clinically appropriate possibilities eGFR (Afr Amer) >60 >60 mL/min/1.73 m2 09/19/2020 8:57 AM EDT [facility] Comment: Values under 60mL/min/1.73m2 may indicate CKD if noted for more than 3 months. eGFR is only valid if creatinine is at steady state. eGFR (NON -Taiwanese) >60 >60 mL/min/1.73 m2 09/19/2020 8:57 AM EDT [facility] Comment: Values under 60mL/min/1.73m2 may indicate CKD if noted for more than 3 months. eGFR is only valid if creatinine is at steady state. Blood Venipuncture / Unknown 09/19/2020 8:23 AM EDT 09/19/2020 8:30 AM EDT us Mariam Reese MD LAB BLOOD ORDERABLES Fin al Result Performing Organization Address City/State/[facility] Co de Phone Number [facility] [address] [place] [address] * (ABNORMAL) CBC auto differential (09/19/2020 8:23 AM EDT) WBC 6.2 4.0 - 10.0 x1000/ L 09/19/2020 8:36 AM EDT [facility] RBC 4.4 3.8 - 5.9 M/ L 09/19/2020 8:36 AM EDT [facility] Hemoglobin 12.6 12.0 - 18.0 g/dL 09/19/2020 8:36 AM EDT [facility] Hematocrit 38.9 37.0 - 52.0 % 09/19/2020 8:36 AM EDT [facility] MCV 87.6 78.0 - 94.0 fL 09/19/2020 8:36 AM EDT [facility] MCHC 32.4 31.0 - 36.0 g/dL 09/19/2020 8:36 AM EDT [facility] RDW-CV 14.8(H) 11.5 - 14.5 % 09/19/2020 8:36 AM EDT [facility] Platelets 278 140 - 440 x1000/ L 09/19/2020 8:36 AM EDT [facility] MPV 9.9 6.0 - 11.0 fL 09/19/2020 8:36 AM EDT [facility] ANC (Abs Neutrophil Count) 3.6 1.0 - 11.0 x 1000/ L 09/19/2020 8:36 AM EDT [facility] Neutrophils 57.9 37.0 - 84.0 % 09/19/2020 8:36 AM EDT [facility] Lymphocytes 29.7 8.0 - 49.0 % 09/19/2020 8:36 AM EDT [facility] Absolute Lymphocyte Count 1.9 1.0 - 4.0 x 1000/ L 09/19/2020 8:36 AM EDT [facility] Monocytes 10.4 4.0 - 15.0 % 09/19/2020 8:36 AM EDT [facility] Monocyte Absolute Count 0.7 0.0 - 2.0 x 1000/ L 09/19/2020 8:36 AM EDT [facility] Eosinophils 1.0 0.0 - 7.0 % 09/19/2020 8:36 AM EDT [facility] Eosinophil Absolute Count 0.1 0.0 - 1.0 x 1000/ L 09/19/2020 8:36 AM EDT [facility] Basophil 0.5 0.0 - 4.0 % 09/19/2020 8:36 AM EDT [facility] Basophil Absolute Count 0.0 0.0 - 0.0 x 1000/ L 09/19/2020 8:36 AM EDT [facility] Immature Granulocytes 0.5 0.0 - 3.0 % 09/19/2020 8:36 AM EDT [facility] Absolute Immature Granulocyte Count 0.0 0.0 - 0.3 x 1000/ L 09/19/2020 8:36 AM EDT [facility] nRBC 0.0 0.0 - 1.0 % 09/19/2020 8:36 AM EDT [facility] Absolute nRBC 0.0 0.0 - 0.0 x 1000/ L 09/19/2020 8:36 AM EDT [facility] MCH 28.4 27.0 - 31.0 pg 09/19/2020 8:36 AM EDT [facility] Blood Venipuncture / Unknown 09/19/2020 8:23 AM EDT 09/19/2020 8:29 AM EDT us Mariam Reese MD LAB BLOOD ORDERABLES Fin al Result Performing Organization Address City/State/[facility] Co de Phone Number [address] [phone] * Vitamin D, 25-hydroxy (09/19/2020 8:23 AM EDT) Vitamin D, 25-OH D3 52 ng/mL 09/22/2020 8:22 AM EDT [facility] Vitamin D, 25-OH D2 <5 ng/mL 09/22/2020 8:22 AM EDT [facility] Vitamin D, 25-Hydroxy, Total (LCMSMS) 52 30 - 100 ng/mL 09/22/2020 8:22 AM EDT [facility] Comment: Reference Range: <10 ng/mL (severe deficiency) 10-19 ng/mL (mild to moderate deficiency) 20-50 ng/mL (optimum levels) 51-80 ng/mL (increased risk of hypercalciuria) >80 ng/mL (toxicity possible) Blood Venipuncture / Unknown 09/19/2020 8:23 AM EDT 09/19/2020 8:30 AM EDT Narrative [facility] - 09/22/2020 8:22 AM EDT This test was developed and its performance characteristics determined by [facility]. It has not been cleared by the FDA. The laboratory is regulated under CLIA as qualified to perform high-complexity testing. This test is used for clinical purposes. It should not be regarded as investigational or for research. Mariam Reese MD LAB BLOOD ORDERABLES Fin al Result Performing Organization Address [facility]/ZIP Co de Phone Number [facility] [address] [place] [address] * Calcium, ionized, serum (09/19/2020 8:23 AM EDT) Calcium, Ionized, Serum 4.67 4.65 - 5.28 mg/dL 09/19/2020 8:55 AM EDT [facility] Blood Venipuncture / Unknown 09/19/2020 8:23 AM EDT 09/19/2020 8:30 AM EDT Mariam Reese MD LAB BLOOD ORDERABLES Fin al Result Performing Organization Address [facility] Co de Phone Number [facility] [address] [place] [address] * (ABNORMAL) Vitamin D 1,25 (renal disease or hypercalcemia)(MinMetabLab)(Y) (09/19/2020 8:23 AM EDT) Vit D, 1,25-Dihydroxy 9(L) 25 - 66 pg/mL 09/21/2020 7:40 AM EDT [facility] Comment: 1,25 Dihydroxy vitamin D increases active calcium transport in the duodenum. Parathyroid hormone stimulates renal production of 1,25 Dihydroxy vitamin D and levels are often elevated in patients with primary hyperparathyroidism. 1,25 Dihydroxy vitamin D can be made ectopically by inflammatory or infectious granulomas. Levels of 1,25 Dihydroxy vitamin D are low in renal failure. Blood Venipuncture / Unknown 09/19/2020 8:23 AM EDT 09/19/2020 8:30 AM EDT Mariam Reese MD LAB BLOOD ORDERABLES Fin al Result Performing Organization Address City/[facility]/ZIP Co de Phone Number [facility] * Collagen type I C-telopeptide (CTx) (LMW Q YH) (09/19/2020 8:23 AM EDT) Collagen Type I C-Telopeptide (CTx) 111 60 - 650 pg/mL 09/22/2020 1:51 PM EDT [facility] Comment: No reference range is provided for postmenopausal women because of the increased rate of bone turnover post-menopause. It is recommended that results for postmenopausal women be compared to the premenopausal reference range as this will give a better indication of their rate of bone loss. For additional information, please refer to https://education.[employer]/faq/ZUU575 (This link is being provided for informational/ educational purposes only.) Test Performed at: [facility] [address] Matthew Jernigan M.D., Ph.D.,Director of Laboratories Blood Venipuncture / Unknown 09/19/2020 8:23 AM EDT 09/19/2020 8:30 AM EDT Mariam Reese MD LAB BLOOD ORDERABLES Fin al Result Performing Organization Address City/[facility]/ZIP Co de Phone Number [facility] * (ABNORMAL) Magnesium (09/19/2020 8:23 AM EDT) Magnesium 1.6(L) 1.7 - 2.4 mg/dL 09/19/2020 8:57 AM EDT [facility] Blood Venipuncture / Unknown 09/19/2020 8:23 AM EDT 09/19/2020 8:30 AM EDT Mariam Reese MD LAB BLOOD ORDERABLES Fin al Result Performing Organization Address [facility] Co de Phone Number [facility] [address] [place] [address] * (ABNORMAL) Prolactin (09/19/2020 8:23 AM EDT) Prolactin 27.0(H) 4.8 - 23.3 ng/mL 09/19/2020 9:46 AM EDT [facility] Blood Venipuncture / Unknown 09/19/2020 8:23 AM EDT 09/19/2020 8:30 AM EDT Mariam Reese MD LAB BLOOD ORDERABLES Fin al Result Performing Organization Address [facility] de Phone Number [facility] [address] [place] [address] * IGF-1, insulin-like growth factor 1 (BH GH L LMW YH) (09/19/2020 8:23 AM EDT) Insulin-Like GF-1 112 53 - 331 ng/mL 09/23/2020 1:39 PM EDT [facility] Z-Score (Female) -0.5 -2.0 - 2.0 SD 09/23/2020 1:39 PM EDT [facility] Comment: This test was developed and its analytical performance characteristics have been determined by [facility]. It has not been cleared or approved by FDA. This assay has been validated pursuant to the CLIA regulations and is used for clinical purposes. Test performed by [employer] [id number] [place] [address] Protein Purification Scientist: Kelsy Coyle MD,PHD,ALFONZO Test Reported by [facility], [facility] [place], [address] [place], [place] Matthew Jernigan M.D., Ph.D., Director of Laboratories , [facility] [id number] Blood Venipuncture / Unknown 09/19/2020 8:23 AM EDT 09/19/2020 8:30 AM EDT Mariam Reese MD LAB BLOOD ORDERABLES Fin al Result Performing Organization Address City/[facility] Co de Phone Number [facility] * TSH (09/19/2020 8:23 AM EDT) Thyroid Stimulating Hormone 2.630 See Comment IU/mL 09/19/2020 9:46 AM EDT [facility] Comment: Male & Non- Females: 0.270-4.200 IU/mL 1st Trimester: 0.110-3.480 IU/mL 2nd Trimester: 0.320-3.850 IU/mL Blood Venipuncture / Unknown 09/19/2020 8:23 AM EDT 09/19/2020 8:30 AM EDT Mariam Reese MD LAB BLOOD ORDERABLES Fin al Result Performing Organization Address [facility] de Phone Number [facility] [address] [place] [address] * Phosphorus (BH GH L LMW YH) (09/19/2020 8:23 AM EDT) Phosphorus 2.9 2.2 - 4.5 mg/dL 09/19/2020 8:57 AM EDT [facility] Blood Venipuncture / Unknown 09/19/2020 8:23 AM EDT 09/19/2020 8:30 AM EDT Mariam Reese MD LAB BLOOD ORDERABLES Fin al Result Performing Organization Address City/[facility] Co de Phone Number [facility] [address] [place] [address] * Vitamin D 25 (vitamin D status)([facility])(YH) (09/19/2020 8:23 AM EDT) Vit D, 25-Hydroxy 48 20 - 50 ng/mL 09/20/2020 11:30 AM EDT [facility] Comment: A serum 25(OH) vitamin D concentration of at least 20 ng/mL is necessary to prevent secondary hyperparathyroidism. For reducing fracture risk or optimizing skeletal muscle function, higher serum 25(OH) vitamin D values, in the range of 30 ng/mL, are thought to be optimal. Blood Venipuncture / Unknown 09/19/2020 8:23 AM EDT 09/19/2020 8:30 AM EDT Mariam Reese MD LAB BLOOD ORDERABLES Fin al Result Performing Organization Address [facility] Co de Phone Number [facility] * T4, free (09/19/2020 8:23 AM EDT) Free T4 1.12 See Comment ng/dL 09/19/2020 9:46 AM EDT [facility] Comment: For patients taking levothyroxine, the daily therapeutic dose may cause some patients to have slightly higher FT4 than in the general population and TSH should be the main arbiter of dosing adequacy for those whose hypothyroidism is of primary origin (ie. not related to hypothalamic-pituitary disease.) Of 26 commonly used pharmaceuticals tested in vitro, only furosemide caused elevated free thyroxine (FT4) findings at the daily therapeutic dosage level. Male & Non- Females: 0.80-1.70 ng/dL 1st Trimester: 0.90-1.40 ng/dL 2nd Trimester: 0.70-1.30 ng/dL Blood Venipuncture / Unknown 09/19/2020 8:23 AM EDT 09/19/2020 8:30 AM EDT us Mariam Reese MD LAB BLOOD ORDERABLES Fin al Result Performing Organization Address City/[facility]/ZIP Co de Phone Number [facility] [address] [place] [address] * T3 (09/19/2020 8:23 AM EDT) Pathologist [facility] T3, Total 95.3 See Comment ng/dL 09/19/2020 9:46 AM EDT [facility] Comment: Male & Non- Females: 72.0-153.0 ng/dL 1st Trimester: 92.0-224.0 ng/dL 2nd Trimester: 99.0-242.0 ng/dL Blood Venipuncture / Unknown 09/19/2020 8:23 AM EDT 09/19/2020 8:30 AM EDT Mariam Reese MD LAB BLOOD ORDERABLES Fin al Result Performing Organization Address City/[facility] Co de Phone Number [facility] [address] [place] [address] [phone] * Alkaline phosphatase, bone specific (09/19/2020 8:23 AM EDT) [facility] Alkaline Phosphatase, Bone Specific 9.0 5.3 - 19.5 mcg/L 09/22/2020 10:44 AM EDT [facility] Comment: Reference Range, Premenopausal (mcg/L) 35-45 years 5.0-18.2 Test Performed at: [facility] [address] [id number] Matthew Jernigan M.D., Ph.D.,Director of Laboratories Blood Venipuncture / Unknown 09/19/2020 8:23 AM EDT 09/19/2020 8:30 AM EDT us Mariam Reese MD LAB BLOOD ORDERABLES Fin al Result [facility] * EXTENDED GENE ANALYSIS (DNA LAB) ([facility]) Blood (09/19/2020 8:23 AM EDT) [facility] Source Material Blood 2:56 PM EDT [facility] Extended Gene Analysis Interpretation A LIKELY PATHOGENIC WAS FOUND IN THE NF1 GENE INDICATION FOR TESTING: A 39-year-old female patient with back pain, caf au lait spots and intracranial aneurysm. Analysis of genes associated with NF-like disease was requested. RESULT: Genes associated with NF and NF-like disorders were examined for pathogenic alterations that might underlie the patient s phenotype. 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 --- This variant has been reported in one individual affected with NF-like disorder in a large-scale analysis (PMID: [id number]). However, no segregation analysis or functional study was done to further characterize this variant. --- Another missense substitution at this codon, [id number], has been reported in a family with clinical diagnosis of NF1 and was found to co-segregate with disease symptoms. --- In-silico tools predict a likely deleterious effect to the protein structure and/or activity caused by this variant. --- This variant has been curated as a likely pathogenic variant by one clinical lab at [facility] (variation ID: [id number]). DISEASE INFORMATION: Pathogenic variants of the NF1 gene are associated with a few NF1-associated conditions including Neurofibromatosis, type 1 (OMIM: 775520; AD), which is characterized by neurofibromas, plexiform neurofibroma, axillary freckling, [id number] spots, macrocephaly and/or learning disabilities in affected individuals. RECOMMENDATIONS: These results should be interpreted in the context of the patient s clinical findings and family history. In addition, genetic counselling to this patient and his family members is recommended. VARIANT CLASSIFICATION: Interpretation of variants follows ACMG [...] detected by the methodology used. This study would not have detected large-scale inversions, balanced translocations, or trinucleotide repeat expansions and would not have detected variants outside of the coding region and intron-exon junctions unless specifically indicated in the report. Exome sequence does not include the mitochondrial genome. This patient may have [...] and quantity are sufficient for high-throughput sequencing. Array capture is used to isolate the relevant human genes, and these genes are sequenced on the Illumina platform. GATK best [...] on mRNA splicing or protein function. An [facility]-certified clinical fence making machine operator interprets the results in the context of the clinical information submitted by the referring health care provider. Potentially relevant variants with low quality or lying in poorly mapped regions are confirmed with Gwendolyn sequence. PERFORMANCE CHARACTERISTICS Coverage of the human exome: Mean coverage of the exome is greater than 100 X, and more than 98% of the exome has at least 20X coverage. Analytical sensitivity: Failure to detect a genetic variant in the analyzed DNA regions may result from poor coverage of a specific exon, errors in specimen handling, or errors in computer-assisted analysis and data review. The sensitivity of this assay based on comparison with high-confidence calls from the NIST Genome Reference Material (Alexsander et al., [employer] 2014) is at least 99.8% for single nucleotide variants and 96.24% for indels 1-58 base pairs in length. Based on limited internal data, this assay is highly sensitive for exon-size or larger deletions and duplications involving two or more contiguous exons. The assay does not reliably detect single-exon deletions or duplications. [...] test was generated in cooperation with: [facility] [address] [place] [address] [place] License [id number] 12/12/2020 2:56 PM EDT [facility] Genes Analyzed NF and NF-like Genes: AKT1, BRAF, GNAS, KIT, KITLG, KRAS, MAP2K1, MLH1, MSH2, MSH6, NF1, NRAS, PMS2, PPP1CB, PTPN11, RAF1, RIT1, SNAI2, SOS1, SPRED1, 12/12/2020 2:56 PM EDT [facility] Extended Gene Analysis Electronic Signature HUGO ZUNIGA, Ph.D.,[facility] [place] [address] This report is electronically signed by: Joseph Mcguire MD on 12/12/20 at 2:56 PM I have reviewed the interpretation and agree with the results. 12/12/2020 2:56 PM EDT [facility] Blood Venipuncture / Unknown 09/19/2020 8:23 AM EDT 09/19/2020 8:30 AM EDT Mariam Reese MD GENETIC TESTING Final Re sult Performing Organization Address City/[facility] Co de Phone Number [facility] [address] [place] [address], [phone] [place] [address], [facility] [phone] * (ABNORMAL) C-reactive protein (CRP) (09/19/2020 8:23 AM EDT) Pathologist [facility] CRP, High Sensitivity 9.1(H) See comment mg/L 09/19/2020 9:41 AM EDT [facility] Comment: hs-CRP Risk According to AHA/CDC Guidelines (mg/L): <1.0 Lower relative cardiovascular risk. 1.0-3.0 Average relative cardiovascular risk. 3.1-10.0 Higher relative cardiovascular risk. Consider retesting in 1 to 2 weeks to exclude a benign transient elevation in the baseline CRP value secondary to infection or inflammation. >10.0 Persistent elevation, upon retesting, may be associated with infection and inflammation. Blood Venipuncture / Unknown 09/19/2020 8:23 AM EDT 09/19/2020 8:30 AM EDT Laci Colbert MD LAB BLOOD ORDERABLES Final Re sult Performing Organization Address City/[facility]/ZIP Co de Phone Number [facility] [address] [place] [address], [facility] [phone] * (ABNORMAL) Sedimentation rate (ESR) (09/19/2020 8:23 AM EDT) Pathologist [facility] Sedimentation Rate (ESR) 29(H) 0 - 20 mm/hr 09/19/2020 8:51 AM EDT [facility] Blood Venipuncture / Unknown 09/19/2020 8:23 AM EDT 09/19/2020 8:29 AM EDT Laci Colbert MD LAB BLOOD ORDERABLES Final Re sult [facility] [address] [place] [address] documented in this encounter Visit Diagnoses Diagnosis Closed fracture of right fibula- Primary Closed fracture of unspecified part of fibula Bone fibrous dysplasia Other cyst of bone 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
--- OUTSIDE RECORDS SUMMARY | 2024-11-09 14:06 | XMS_ITS | Encounter Summary ---
Author Organization [facility] Address [address] [place] [phone] Care Team Providers Care Government Employee Name Role Phone Alec Dahl MD Primary Care Provider [phone] Encounter Details Date Type Department Care Team (Late st Contact Info) Description 09/16/2020 Scanned Document [facility] Endocrinology [address] [place] [address] Mariam Reese MD [address] [place] [phone] Social History Tobacco Use Types Packs/Day Years [...] 2:45 PM EDT Telemedicine Neurosurgery at 800 [facility] 800 [place] [address] James Reynolds MD 800 [place] [phone] 12/21/2024 10:00 AM EDT Office Visit [facility] [address] [place] 2nd [place] [address] Oziel Isabel MD [address] [phone] documented as of this encounter Procedures Procedure Name Priority Date/Time Associated Diagnosis Comments [facility] MRI LUMBAR SPINE Routine 09/16/2020 documented in this encounter Results * [facility] MRI Lumbar Spine (09/16/2020) Anatomical Region Laterality Modality L-spine, Spine, Ortho L-spine Ma gnetic Resonance Mariam Reese MD IMG [facility] NON REP ORDERABL ES Final Result documented in this encounter Visit Diagnoses Not on filedocumented in this encounter Care Teams Government Employee Relationship Specialty Start Date End Date Alec Dahl MD [address] [place] [phone] PCP - General Internal Medicine 02/23/20 documented as of this encounter
--- OUTSIDE RECORDS SUMMARY | 2024-11-09 14:06 | XMS_ITS | Encounter Summary ---
Author Organization [facility] Address [address] [place] [address] Care Team Providers Care Residence Hall Director Name Role Phone Alec Dahl MD Primary Care Provider [phone] Reason for Referral * Imaging (Routine) - Closed Specialty Diagnoses / Procedures Referred By Contact Referred To Contact Diagnostic Radiology Procedures MRI Thoracic Spine with and without IV Contrast [facility] Rehabilitation at [address] [place] [address] Phone: tel: fax: Referral ID Status Reason Start Date Expiration Date Visits Re quested Visits Authorized [id number] Closed 09/19/2020 09/19/2021 1 1 Encounter Details Date Type Department Care Team (Late st Contact Info) Description 09/19/2020 Scanned Document Orthopaedics & Rehabilitation at [address] [place] [address] Provider, Naina . Social History Tobacco Use Types Packs/Day [...] [facility] Neurosurgery at [address] 800 [facility] [address] James Reynolds MD 800 [place] [phone] 12/21/2024 10:00 AM EDT Office Visit [facility] 35 [facility] 2nd [place] [address] Oziel Isabel MD 1 [facility] 2 [place] [phone] documented as of this encounter Procedures Procedure Name Priority Date/Time Associated Diagnosis Comments [facility] MRI THORACIC SPINE Routine 09/17/2020 MRI THORACIC SPINE W WO IV CONTRAST Routine 09/17/2020 documented in this encounter Results * [facility] MRI Thoracic Spine (09/17/2020) Anatomical Region Laterality Modality T-spine, Spine, Ortho T-spine Ma gnetic Resonance Mariam Reese MD IMG [facility] NON REP ORDERABL ES Final Result * MRI Thoracic Spine with and without IV Contrast (09/17/2020) Anatomical Region Laterality Modality T-spine, Spine, Ortho T-spine Ma gnetic Resonance Historical Provider IMG MRI ORDERABLES Final Res ult documented in this encounter Visit Diagnoses Not on filedocumented in this encounter Care Teams Residence Hall Director Relationship Specialty Start Date End Date Alec Dahl MD [facility] Main [facility] 1 [place] [phone] PCP - General Internal Medicine 02/23/20 documented as of this encounter
--- OUTSIDE RECORDS SUMMARY | 2024-11-09 14:06 | XMS_ITS | Encounter Summary ---
Author Organization [facility] Address [address] [place] [phone] Care Team Providers Care Associate Financial Planner Name Role Phone Alec Dahl MD Primary Care Provider [phone] Reason for Visit * Reason Comments Other Encounter Details Date Type Department Care Team ([facility] st Contact Info) Description 12/06/2020 Telephone CARE CENTER SCHEDULING 25 [place], [place] [address] James Reynolds MD 800 [place] [address] Other Social History Tobacco Use [...] Telephone Encounter - Gael Jorge RN - 12/06/2020 2:33 PM EDT Surgical clearance request sent again to PCP office at fax number provided. Called pt's andadvised him I resent clearance letter. Encouraged him to call with any questions or concerns. * Telephone Encounter - Tricia Zambrano - 12/06/2020 12:14 PM EDT [facility] MESSAGE Time of call: 12:14 PM Caller: JUAN JOSE Caller's relationship to patient: Calling from Reason for call: Pt called and stated pcp need pre op paperwork so they can schedule and appt for their procedure on the . Please let them know when its been sent. Salud jessicary @[phone]. They also wants to know about covid testing would like a call back. If not feeling well, what are symptoms: If having symptoms, how long have the symptoms been present: Does caller request to speak to someone urgently? yes Best telephone number for callback: [phone] Best time to return call: Permission to leave message: Tricia Zambrano documented in this encounter Plan of Treatment Upcoming Encounters Date Type Department Care Team ([facility] st Contact Info) Description 11/16/2024 2:45 PM EDT Telemedicine Neurosurgery at 800 [facility] 800 [facility] [place] [address] James Reynolds MD [address] [place] [phone] 12/21/2024 10:00 AM EDT Office Visit [facility] [address] 2nd [place], [place] [address] Oziel Isabel MD [address] [place] [phone] documented as of this encounter Visit Diagnoses Not on filedocumented in this encounter Care Teams Associate Financial Planner Relationship Specialty Start Date End Date Alec Dahl MD [address] [place] [phone] PCP - General Internal Medicine 02/23/20 documented as of this encounter
--- OUTSIDE RECORDS SUMMARY | 2024-11-09 14:06 | XMS_ITS | Encounter Summary ---
Author Organization [facility] and [facility] Address [address] [place] [phone] Care Team Providers Care Postmaster Relief Name Role Phone Alec Dahl MD Primary Care Provider [phone] Reason for Referral * Imaging (Routine) - Closed Specialty Diagnoses / Procedures Referred By Contac t Referred To Contact Diagnostic Radiology Procedures MRI Lumbar Spine without IV Contrast External, Provider Referral ID Status Reason Start Date Expiration Date Visits Re quested Visits Authorized [id number] Closed 04/27/2020 04/27/2021 1 1 Encounter Details Date Type Department Care Team (Late st Contact Info) Description 04/27/2020 Scanned Document [facility] Endocrinology 789 [facility] [address] [place] [address]. [place] [address] External, Provider Social History Tobacco Use Types [...] 2:45 PM EDT Telemedicine Neurosurgery at 800 [facility] 800 [place] [address] James Reynolds MD [address] [place] [address] [place] [phone] 12/21/2024 10:00 AM EDT Office Visit [facility] [address]nd [place] [address] Oziel Isabel MD 1 [facility] 2 [place] [phone] documented as of this encounter Procedures Procedure Name Priority Date/Time Associated Diagnosis Comments MRI LUMBAR SPINE WO IV CONTRAST Routine 10/23/2016 documented in this encounter Results * MRI Lumbar Spine without IV Contrast (10/23/2016) Anatomical Region Laterality Modality L-spine, Spine, Ortho L-spine Ma gnetic Resonance us Provider External IMG MRI ORDERABLES Final Resul t documented in this encounter Visit Diagnoses Not on filedocumented in this encounter Care Teams Postmaster Relief Relationship Specialty Start Date End Date Alec Dahl MD [facility] Main [facility] 1 [place] [phone] PCP - General Internal Medicine 02/23/20 documented as of this encounter
--- OUTSIDE RECORDS SUMMARY | 2024-11-09 14:06 | XMS_ITS | Encounter Summary ---
Author Organization [facility] and [facility] Address [address] [place] [phone] Care Team Providers Care Rug Dyer Name Role Phone Alec Dahl MD Primary Care Provider [phone] Encounter Details Date Type Department Care Team (Late st Contact Info) Description 09/18/2021 Scanned Document [facility] [address] [address] Provider, historical . Social History Tobacco Use [...] 2:45 PM EDT Telemedicine Neurosurgery at [address] [address] James Reynolds MD [address] [place] [phone] 12/21/2024 10:00 AM EDT Office Visit [facility] [address] [place] 2nd [place] [address] Oziel Isabel MD [address] [place] [phone] documented as of this encounter Procedures Procedure Name Priority Date/Time Associated Diagnosis Comments PATHOLOGY/CYTOLOGY SCAN Routine 09/18/2021 PATHOLOGY/CYTOLOGY SCAN Routine 09/18/2021 documented in this encounter Results * Pathology/Cytology Scan (09/18/2021) us Historical Provider PATHOLOGY/CYTOLOGY ORDERABLE S Final Result * Pathology/Cytology Scan (09/18/2021) us Historical Provider PATHOLOGY/CYTOLOGY ORDERABLE S Final Result documented in this encounter Visit Diagnoses Not on filedocumented in this encounter Additional Health Concerns Assessment Noted Time PHQ-9 Depression Total Score: 0 01/01/20 21 4:42 AM EDT documented as of this encounter Care Teams Rug Dyer Relationship Specialty Start Date End Date Alec Dahl MD [address] [place] [phone] PCP - General Internal Medicine 02/23/20 documented as of this encounter
--- OUTSIDE RECORDS SUMMARY | 2024-11-09 14:06 | XMS_ITS | Encounter Summary ---
Author Organization [facility] Address [address] [place] [address] Care Team Providers Care Novelty Balloon Assembler And Packer Name Role Phone Alec Dahl MD Primary Care Provider [phone] Reason for Referral * Imaging (Routine) - Closed Specialty Diagnoses / Procedures Referred By Blanka mullen Referred To Contact Diagnostic Radiology Procedures US Neck Mapping (YH LM) [facility] [address] [place] [address] Phone: tel: fax: Referral ID Status Reason Start Date Expiration Date Visits Re quested Visits Authorized [id number] Closed 09/07/2021 09/07/2022 1 1 * Imaging (Routine) - Closed Specialty Diagnoses / Procedures Referred By Blanka mullen Referred To Contact Diagnostic Radiology Procedures US Thyroid [facility] [address] [address] Phone: tel: fax: Referral ID Status Reason Start Date Expiration Date Visits Re quested Visits Authorized [id number] Closed 09/07/2021 09/07/2022 1 1 Encounter Details Date Type Department Care Team ([facility] st Contact Info) Description 09/07/2021 Scanned Document [facility] [address] [address] Provider, [facility] . Social History Tobacco Use Types Packs/Day [...] PM EDT Telemedicine [facility] Neurosurgery at 800 [facility] 800 [facility] [place] [address] James Reynolds MD [address] [place] [phone] 12/21/2024 10:00 AM EDT Office Visit [facility] [address] [facility] 2nd [place] [address] Oziel Isabel MD [address] [place] [phone] documented as of this encounter Procedures Procedure Name Priority Date/Time Associated Diagnosis Comments US NECK MAPPING ( LM) Routine 09/07/2021 US THYROID Routine 09/07/2021 documented in this encounter Results * US Neck Mapping ( LM) (09/07/2021) Anatomical Region Laterality Modality Neck, C-spine, Ortho Neck Ultras ound us Historical Provider IMG US ORDERABLES Final Resu lt * US Thyroid (09/07/2021) Anatomical Region Laterality Modality Neck, Ortho Neck Ultrasound us Historical Provider IMG US ORDERABLES Final Resu lt documented in this encounter Visit Diagnoses Not on filedocumented in this encounter Additional Health Concerns Assessment Noted Time PHQ-9 Depression Total Score: 0 01/01/20 21 4:42 AM EDT documented as of this encounter Care Teams Novelty Balloon Assembler And Packer Relationship Specialty Start Date End Date Alec Dahl MD [address] [place] [phone] PCP - General Internal Medicine 02/23/20 documented as of this encounter
--- OUTSIDE RECORDS SUMMARY | 2024-11-09 14:06 | XMS_ITS | Encounter Summary ---
Author Organization [facility] and [facility] Address [address] [place] [phone] Care Team Providers Care Lane Attendant Name Role Phone Alec Dahl MD Primary Care Provider [phone] Reason for Referral * Imaging (Routine) - Closed Specialty Diagnoses / Procedures Referred By Blanka mullen Referred To Contact Diagnostic Radiology Procedures US Guided Fine Needle Aspiration [facility] [address] [address] Phone: tel: fax: Referral ID Status Reason Start Date Expiration Date Visits Re quested Visits Authorized [id number] Closed 09/26/2021 09/26/2022 1 1 Encounter Details Date Type Department Care Team (Late Contact Info) Description 09/26/2021 Scanned Document [facility] [address] [address] Provider, Naina . Social History Tobacco Use [...] Neurosurgery at [address] 800 [facility]Note 2] [place] [address] James Reynolds MD 800 [place] [phone] 12/21/2024 10:00 AM EDT Office Visit [facility] [address] 2nd [place] [address] Oziel Isabel MD [address] [phone] documented as of this encounter Procedures Procedure Name Priority Date/Time Associated Diagnosis Comments US GUIDED FINE NEEDLE ASPIRATION Routine 09/26/2021 documented in this encounter Results * US Guided Fine Needle Aspiration (09/26/2021) Anatomical Region Laterality Modality Ultrasound us Historical Provider IMG US ORDERABLES Final Resu lt documented in this encounter Visit Diagnoses Not on filedocumented in this encounter Additional Health Concerns Assessment Noted Time PHQ-9 Depression Total Score: 0 01/01/20 21 4:42 AM EDT documented as of this encounter Care Teams Lane Attendant Relationship Specialty Start Date End Date Alec Dahl MD [address] [place] [phone] PCP - General Internal Medicine 02/23/20 documented as of this encounter
--- OUTSIDE RECORDS SUMMARY | 2024-11-09 14:06 | XMS_ITS | Encounter Summary ---
Author Organization [facility] Address [address] [place] [phone] Care Team Providers Care Independent Living Advisor Name Role Phone Alec Dahl MD Primary Care Provider [phone] Encounter Details Date Type Department Care Team (Late st Contact Info) Description 09/15/2020 Telephone [facility] at [address] [place] [address] Lucio Montiel MD [address] [place] [address] Social History Tobacco Use Types Packs/Day Years Used Date Smoking Tobacco: Every Day Cigarettes Smokeless Tobacco: Never Comments Unknown Sex and Gender Information Value Date Recorded Sex Assigned at Not on file Legal Sex Female 10:04 AM EST Gender Identity Female 09/16/2020 4:45 PM EDT Sexual Orientation Not on file documented as of this encounter Miscellaneous Notes * Telephone Encounter - Loree Lebron - 09/15/2020 10:46 AM EDT Patient spouse requesting medical necessity letter from for patient to get an MRI of the back. Please [phone] They have an opening tomorrow. documented in this encounter Plan of Treatment Upcoming Encounters Date Type Department Care Team (Late st Contact Info) Description 11/16/2024 2:45 PM EDT Telemedicine [facility] Neurosurgery at [address] 800 [facility] [place] [address] James Reynolds MD 800 [place] [phone] 12/21/2024 10:00 AM EDT Office Visit [facility] [address]nd [place] [address] Oziel Isabel MD [address] [place] [phone] documented as of this encounter Visit Diagnoses Not on filedocumented in this encounter Care Teams Independent Living Advisor Relationship Specialty Start Date End Date Alec Dahl MD [address] [place] [phone] PCP - General Internal Medicine 02/23/20 documented as of this encounter
--- OUTSIDE RECORDS SUMMARY | 2024-11-09 14:06 | XMS_ITS | Encounter Summary ---
Author Organization [facility] Address [address] [place] [phone] Care Team Providers Care Rf Microwave Engineer Name Role Phone Alec Dahl MD Primary Care Provider [phone] Reason for Referral * Imaging (Routine) - Closed Specialty Diagnoses / Procedures Referred By Blanka mullen Referred To Contact Diagnostic Radiology Procedures MRI Cervical Spine with and without IV Contrast Mariam Reese MD [address] [place] [address] Phone: tel: fax: Referral ID Status Reason Start Date Expiration Date Visits Re quested Visits Authorized [id number] Closed 10/27/2020 10/27/2021 1 1 Encounter Details Date Type Department Care Team (Late st Contact Info) Description 10/27/2020 Scanned Document [facility] Endocrinology [address] [place] [address] Mariam Reese MD [address] [place] [phone] Social History Tobacco Use Types Packs/Day Years [...] [facility] Neurosurgery at [address] 800 [facility] [place] [address] James Reynolds MD 800 [place] [phone] 12/21/2024 10:00 AM EDT Office Visit [facility] [address] 2nd [place] [address] Oziel Isabel MD [address] [place] [phone] documented as of this encounter Procedures Procedure Name Priority Date/Time Associated Diagnosis Comments MRI CERVICAL SPINE W WO IV CONTRAST Routine 10/27/2020 documented in this encounter Results * MRI Cervical Spine with and without IV Contrast (10/27/2020) Anatomical Region Laterality Modality C-spine, Spine, Ortho C-spine Ma gnetic Resonance Mariam Reese MD IMG MRI ORDERABLES Final Result documented in this encounter Visit Diagnoses Not on filedocumented in this encounter Care Teams Rf Microwave Engineer Relationship Specialty Start Date End Date Alec Dahl MD [facility] Main [facility] 1 [place] [phone] PCP - General Internal Medicine 02/23/20 documented as of this encounter
--- OUTSIDE RECORDS SUMMARY | 2024-11-09 14:06 | XMS_ITS | Encounter Summary ---
Author Organization [facility] and [facility] Address [address] [place] [address] Care Team Providers Care Visual Basic Developer Name Role Phone Alec Dahl MD Primary Care Provider [phone] Reason for Visit * Reason Comments Other Encounter Details Date Type Department Care Team (Late st Contact Info) Description 11/29/2020 Telephone [facility] [address] [facility] [address] [facility] [place] [address] Jamse Reynolds MD [address] [place] [phone] Other Social History Tobacco Use Types [...] have Coronavirus / COVID-19? No / Unsure 11/28/2020 9:32 AM EDT documented as of this encounter Miscellaneous Notes * Telephone Encounter - Gael Jorge RN - 11/30/2020 2:36 PM EDT Returned call to pt. Procedure scheduled. Pre-op information reviewed. Reminded pt to TH appointment with Dr Reynolds on 12/08. Encouraged pt to call with any further questions or concerns. * Telephone Encounter - Marilou Cali - 11/29/2020 4:[address] Reynolds Patient calling in to schedule stent surgery Dr. Reynolds discussed with her yesterday for her brain aneurysm. Please call to schedule [phone]. documented in this encounter Plan of Treatment Upcoming Encounters Date Type Department Care Team (Late st Contact Info) Description 11/16/2024 2:45 PM EDT Telemedicine Neurosurgery at [address] [place] [address] James Reynolds MD [address] [place] [phone] 12/21/2024 10:00 AM EDT Office Visit [facility] - [address] 2nd [place] [address] Oziel Isabel MD [address] [place] [phone] documented as of this encounter Visit Diagnoses Not on filedocumented in this encounter Care Teams Visual Basic Developer Relationship Specialty Start Date End Date Alec Dahl MD [address] [place] [phone] PCP - General Internal Medicine 02/23/20 documented as of this encounter
--- OUTSIDE RECORDS SUMMARY | 2024-11-09 14:06 | XMS_ITS | Encounter Summary ---
Author Organization [facility] and [facility] Address [address] [place] [address] Care Team Providers Care Dip Dyer Name Role Phone Alec Dahl MD Primary Care Provider [phone] Encounter Details Date Type Department Care Team (Late st Contact Info) Description 08/19/2024 Scanned Document [facility] SCHEDULING 25 [place] [address] Provider, historical . Social History Tobacco Use [...] 2:45 PM EDT Telemedicine Neurosurgery at [address] [address] James Reynolds MD [address] [place] [phone] 12/21/2024 10:00 AM EDT Office Visit [facility] 35 [facility] 2nd [place] [address] Oziel Isabel MD [address] [phone] documented as of this encounter Procedures Procedure Name Priority Date/Time Associated Diagnosis Comments [facility] MRA HEAD Routine 08/19/2024 12:48 PM EDT documented in this encounter Results * [facility] MRA Head (08/19/2024 12:48 PM EDT) Anatomical Region Laterality Modality Head, Vascular, Ortho Head Magne tic Resonance us Historical Provider IMG [facility] NON REP ORDERABLES F inal Result documented in this encounter Visit Diagnoses Not on filedocumented in this encounter Additional Health Concerns Assessment Noted Time PHQ-9 Depression Total Score: 0 01/01/20 21 4:42 AM EDT documented as of this encounter Care Teams Dip Dyer Relationship Specialty Start Date End Date Alec Dahl MD [address] [place] [phone] PCP - General Internal Medicine 02/23/20 documented as of this encounter
--- OUTSIDE RECORDS SUMMARY | 2024-11-09 14:06 | XMS_ITS | Encounter Summary ---
Author Organization [facility] Address [address] [place] [address] Care Team Providers Care Pharmacy Helper Name Role Phone Alec Dahl MD Primary Care Provider Laci Colbert MD Unavailable [phone] Mariam Reese MD Unavailable [phone] Jenna Robert MD Unavailable [phone] Sam Glasgow MD Unavailable Sarah Beth Tee DO Unavailable [phone] Anne SchulerW Unavailable [phone] Saira Darnell DO Unavailable [phone] Lashell Crouch MD Unavailable [phone] Reason for Visit * Reason Comments Medication Refill Encounter Details Date Type Department Care Team (Late st Contact Info) Description 08/22/2022 Refill [facility] [address] [place] [address] Davis Olsen MD [address] [place] [address] Social History Tobacco Use Types Packs/Day [...] documented as of this encounter Care Teams Pharmacy Helper Relationship Specialty Start Date End Date Alec Dahl MD [address] [place] [address] PCP - General 09/22/19 Laci Colbert MD [address] [place] [address] Surgery, Orthopedic 10/05/20 Mariam Reese MD [address] [place] [address] Endocrinology 10/05/20 Jenna Robert MD [address] [place] [address] Primary Attending Psychiatry, General 12/13/2008/21 Sam Glasgow MD [address] [place] [address] Primary Attending Psychiatry, General 08/25/2109/11 Sarah Beth Tee DO [address] [place] [address] Psychiatry, General 09/28/22 03/20/23 Anne Schuler LCSW [address] [place] [address] Eyelet Maker Clinical Social Work 11/08/23 Saira Darnell DO [address] [place] [address] Psychiatry, General 09/11/24 Lashell Crouch MD [address] [place] [address] Primary BH Attending Psychiatry, General 09/12/24 documented as of this encounter
--- OUTSIDE RECORDS SUMMARY | 2024-11-09 14:06 | XMS_ITS | Encounter Summary ---
Author Organization [facility] and [facility] Address [address] [place] [address] Care Team Providers Care Plastic Roller Name Role Phone Alec Dahl MD Primary Care Provider [phone] Encounter Details Date Type Department Care Team (Late st Contact Info) Description 05/17/2021 Documentation [facility] [address] [address] Rosy Shaw, PAUL Social History Tobacco Use Types Packs/Day Years [...] PM EDT Telemedicine [facility] [address] [place] [address] James Reynolds MD [address] [place] [phone] 12/21/2024 10:00 AM EDT Office Visit [facility] [address] 2nd [place] [address] Oziel Isabel MD [address] [phone] documented as of this encounter Visit Diagnoses Not on filedocumented in this encounter Additional Health Concerns Assessment Noted Time PHQ-9 Depression Total Score: 0 01/01/20 21 4:42 AM EDT documented as of this encounter Care Teams Plastic Roller Relationship Specialty Start Date End Date Alec Dahl MD [address] [place] [phone] PCP - General Internal Medicine 02/23/20 documented as of this encounter
--- OUTSIDE RECORDS SUMMARY | 2024-11-09 14:06 | XMS_ITS | Encounter Summary ---
Author Organization [facility] and [facility] Address [address] [place] [address] Care Team Providers Care Retail Reset Merchandiser Name Role Phone Alec Dahl MD Primary Care Provider [phone] Encounter Details Date Type Department Care Team (Late Contact Info) Description 03/07/2022 Scanned Document [facility] Endocrinology [address] [place] [address] Day Fernández MD [address] [place] [phone] Social History Tobacco Use Types Packs/Day Years [...] 2:45 PM EDT Telemedicine Neurosurgery at [address] [place] [address] James Reynolds MD [address] [place] [phone] 12/21/2024 10:00 AM EDT Office Visit [facility] [address]nd [place] [address] Oziel Isabel MD [address] [phone] documented as of this encounter Visit Diagnoses Not on filedocumented in this encounter Additional Health Concerns Assessment Noted Time PHQ-9 Depression Total Score: 0 01/01/20 21 4:42 AM EDT documented as of this encounter Care Teams Retail Reset Merchandiser Relationship Specialty Start Date End Date Alec Dahl MD [address] [place] [phone] PCP - General Internal Medicine 02/23/20 documented as of this encounter
--- OUTSIDE RECORDS SUMMARY | 2024-11-09 14:06 | XMS_ITS ---
Author Name [facility] Organization Unknown Results Test Name/Text Value Interpretation Date Range Source Influenza virus B in upper resp spec by SALONI with probe detection Not Detected Normal 05/21/2024 [facility] Respiratory syncytial virus RNA in upper resp spec by SALONI with probe detection Not Detected Normal 05/21/2024 [facility] Comment Negative results do not preclude SARS-CoV-2, Influenza or RSV infection and should not be used as the sole basis for treatment or other patient management decisions. Normal 05/21/2024 [facility] Influenza virus A in upper resp spec by SALONI with probe detection Not Detected Normal 05/21/2024 [facility] 2019-nCOV RNA Not Detected Normal 05/21/2024 [facility] History of Medication Use Medication Directions Dispensed Refills Start Date End Date Stat us gadobutrol (GADAVIST) injection 10 mL 10 mL, Intravenous, Once in imaging, contrast, Starting on Sat10/19/24 at 1239, For 1 dose, Radiology Appointment 10/19/2024 5 completed bupivacaine preservative free (MARCAINE) 0.5 % injection 1.5 mL 07/08/2024 5 completed guaiFENesin-codeine (ROBITUSSIN AC) liquid Take 5 mL by mouth every 4 (four) hours as needed for cough. 05/20/2024 active iohexol (OMNIPAQUE) 350 mg/mL injection 100 mL 100 mL, Intravenous, Once in imaging, contrast, Starting on Sat02/17/24 at 1432, For 1 dose, Radiology Appointment 02/17/2024 4 completed sertraline (ZOLOFT) 100 MG tablet Take 2 tablets (200 mg total) by mouth daily. 10/10/2023 4 active diclofenac enteric coated (VOLTAREN) 75 MG EC tablet TAKE 1 TABLET (75 MG TOTAL) BY MOUTH TWICE A DAY WITH MEALS TO AVOID GI UPSET 10/09/2023 4 active atomoxetine (STRATTERA) 80 MG capsule Take 1 capsule (80 mg total) by mouth daily. 06/24/2023 4 aborted ofloxacin (OCUFLOX) 0.3 % ophthalmic solution Use two drops in the affected eye three times daily 05/13/2023 active betamethasone acetate-betamethasone sodium phosphate (CELESTONE) injection 9 mg 9 mg, Intra-articular, Once, On Sat04/19/23 at 1130, For 1 dose, NOT FOR IV OR EPIDURAL USE. 04/19/2023 4 completed bupivacaine (MARCAINE) 0.25 % injection 3.75 mg 04/19/2023 4 completed escitalopram (LEXAPRO) 20 MG tablet Take 1 tablet (20 mg total) by mouth daily. 03/18/2023 4 aborted ARIPiprazole (ABILIFY) 2 MG tablet Take 1 tablet (2 mg total) by mouth daily. 01/21/2023 active fluconazole (diFLUcan) 150 MG tablet Take 1 tablet (150 mg total) by mouth once a week. 09/28/2022 active predniSONE (DELTASONE) 20 MG tablet TAKE 3TABS BY MOUTH DAILY FOR 2DAYS, 2TABS DAILY FOR 4DAYS, 1TAB DAILY-8 DAYS, THEN FINSIH DAILY 06/07/2021 active fluticasone (FloVENT HFA) 44 mcg/puff inhaler Inhale 2 puffs. 02/25/2021 active ticagrelor (BRILINTA) 90 MG tablet Take 90 mg by mouth. 02/06/2021 active naproxen (NAPROSYN) 500 MG tablet Take 1 tablet (500 mg total) by mouth 2 (two) times a day as needed for mild pain (pain). Take with food 11/01/2020 active ondansetron (ZOFRAN-ODT) 4 MG disintegrating tablet Take 1 tablet (4 mg total) by mouth 3 times daily (every 8 hours) as needed for nausea or vomiting. Place tablet on tongue to dissolve. 11/01/2020 active cholecalciferol (CHOLECALCIFEROL) 1.25 MG (45651 UT) capsule TAKE 1 TABLET (50,000 UNITS TOTAL) BY MOUTH ONCE A WEEK. 10/01/2020 active aspirin 81 MG chewable tablet Chew 1 tablet (81 mg total) daily. active Cannabis (MARIJUANA) [facility] Prescription Strength Inhale nightly as needed. active clopidogrel (PLAVIX) 75 MG tablet Take 75 mg by mouth daily. active OMEprazole (PriLOSEC) 40 MG capsule omeprazole 40 mg capsule,delayed release TAKE 1 CAPSULE BY MOUTH EVERY DAY active Allergies Allergen Reaction Severity Comment Documented Date Source Statu s LATEX RASH/DERMATITIS Localized swelling 09/22/2019 [facility] active Problems Problem Status Onset Date Problem Type Date of Resolution Source Chronic pain syndrome active EncounterDiagnosis Act [facility] Other intervertebral disc displacement, lumbar region active EncounterDiagnosisAct [facility] Myositis ossificans progressiva, unspecified site active EncounterDiagnosisAct [facility] Neurofibromatosis, type 1 (HCC) active EncounterDiagnosisAct [facility] Immunizations Vaccine Date Source Lot Number Status Rho (D) Immune Globulin 07/18/2017 [facility] [id number] c ompleted Rho (D) Immune Globulin 07/18/2017 [facility] [id number] c ompleted Rho (D) Immune Globulin 07/18/2017 [facility] [id number] c ompleted Tdap 06/12/2017 [facility] [id number] completed Tdap 06/12/2017 [facility] [id number] completed Tdap 06/12/2017 [facility] [id number] completed Rho (D) Immune Globulin 02/27/2015 [facility] [id number] c ompleted Rho (D) Immune Globulin 02/27/2015 [facility] [id number] c ompleted Rho (D) Immune Globulin 02/27/2015 [facility] [id number] c ompleted Tdap 02/11/2015 [facility] [id number] completed Tdap 02/11/2015 [facility] [id number] completed Tdap 02/11/2015 [facility] [id number] completed Encounters Encounter Type Encounter Reason Primary Diagnosis Location Date Ambulatory Neurofibromatosis, type 1 Neurofibromatosis, type 1 [facility] 10/30/2024 Ambulatory Neurofibromatosis, type 1 Neurofibromatosis, type 1 [facility] 10/30/2024 Ambulatory Neurofibromatosis, type 1 Neurofibromatosis, type 1 [facility] 10/19/2024 Ambulatory Dorsalgia, unspecified Dorsalgia, unspecified [facility] 10/19/2024 Ambulatory Spinal stenosis, lumbar region without neurogenic claudication Spinal stenosis, lumbar region without neurogenic claudication [facility] 08/19/2024 Ambulatory Cerebral aneurysm, nonruptured Cerebral aneurysm, nonruptured [facility] 08/19/2024 Emergency Acute bronchitis, unspecified Acute bronchitis, unspecified [facility] 07/17/2024 Ambulatory [facility] 07/08/2024 Ambulatory Unilateral post-traumatic osteoarthritis, right knee Unilateral post-traumatic osteoarthritis, right knee [facility] 07/08/2024 Emergency Bronchitis, not specified as acute or chronic Bronchitis, not specified as acute or chronic [facility] 05/20/2024 Ambulatory Cerebral aneurysm, nonruptured Cerebral aneurysm, nonruptured [facility] 02/17/2024 Ambulatory [facility] 10/09/2023 Ambulatory Displaced segmental fracture of shaft of right fibula, sequela Displaced segmental fracture of shaft of right fibula, sequela [facility] 10/09/2023 Emergency Pain in left foot Pain in left foot [facility] 08/22/2023 Emergency Unspecified acute conjunctivitis, right eye Unspecified acute conjunctivitis, right eye [facility] 05/13/2023 Ambulatory Pain in right knee Pain in right knee [facility] 04/17/2023 Ambulatory Pain in right knee Pain in right knee [facility] 04/17/2023 Emergency Acute bronchitis, unspecified Acute bronchitis, unspecified [facility] 01/06/2023 Emergency Tinea corporis [facility] 09/28/2022 Emergency Tinea corporis Tinea corporis [facility] 09/25/2022 Emergency Tinea corporis [facility] 07/21/2022 Emergency Acute frontal sinusitis, unspecified [facility] 01/29/2022 Ambulatory Cerebral aneurys m, nonruptured [facility] 07/13/2021 Ambulatory Contact with and (suspected) exposure to covid-19 [facility] 07/11/2021 Ambulatory Nontoxic single thyroid nodule [facility] 04/13/2021 Ambulatory Candidal stomatitis [facility] 02/27/2021 Ambulatory Cerebral aneurys m, nonruptured [facility] 02/13/2021 Emergency Vomiting, unspecified [facility] 02/02/2021 Emergency Headache, unspecified [facility] 01/03/2021 Inpatient Cerebral aneurys m, nonruptured [facility] 12/30/2020 Ambulatory Encounter for preprocedural laboratory examination [facility] 12/27/2020 Ambulatory Contact with and (suspected) exposure to covid-19 [facility] 12/14/2020 Ambulatory Cerebral aneurys m, nonruptured [facility] 11/28/2020 Ambulatory Encounter for preprocedural laboratory examination [facility] 11/26/2020 Care Team Organization Name Specialty Phone Email Start Date End Da te [facility] 05/26/2024 [facility] 12/27/2022 [facility] 11/17/2022 024 [facility] 07/11/2021 [facility] Primary Care 1 07/13/2021 [facility] Primary [facility] 11/26/2020 07/11/2021 [facility] Primary Care 09/16/2020 09/20/2020
--- OUTSIDE RECORDS SUMMARY | 2024-11-09 14:07 | XMS_ITS | Encounter Summary ---
Author Organization [facility] Address [address] [place] [address] Care Team Providers Care Director Operations Name Role Phone Alec Dahl MD Primary Care Provider [phone] Diamond Gilbert EMAIL CAMPAIGN MANAGER Unavailable [phone] Venita Lowe MD Unavailable [phone] Heidi Rebollar EMAIL CAMPAIGN MANAGER Unavailable [phone] Laci Colbert MD Unavailable [phone] Mariam Reese MD Unavailable [phone] Tania Wesley PsyD Unavailable [phone] Becka Bentley LPCA Unavailable [phone] Raina Hale DO Unavailable [phone] Raina Hale DO Unavailable [phone] Jenna Robert MD Unavailable Sam Glasgow MD Unavailable Eliana Maldonado DO Unavailable Sarah Beth Tee DO Unavailable [phone] Anne Schuler EMAIL CAMPAIGN MANAGER Unavailable [phone] Saira Darnell DO Unavailable [phone] Lashell Crouch MD Unavailable [phone] Encounter Details Date Type Department Care Team (Late st Contact Info) Description 10/06/2020 Prep for Surgery [facility] [place] [address] [facility] 2nd [place] [address] [place] [address] Soheila Kim, COMMERCIAL ARTIST 31 [facility] [address] [place] [address] Social History Tobacco Use Types Packs/Day Years Used Date Smoking Tobacco: Every Day Cigarettes Smokeless Tobacco: Never Comments:working up to it Alcohol Use Standard Drinks/Week Comments Not Currently 0 (1 standard drink = 0.6 oz pur e alcohol) Comments No Sex and Gender Information Value Date Recorded Sex Assigned at Female 01/29/2022 4:44 PM EST Legal Sex Female 2:11 PM EDT Gender Identity Female 01/29/2022 4:44 PM EST Sexual Orientation Heterosexual (straight) 01/29 4:44 PM EST COVID-19 Exposure Response Date Recorded In the last month, have you been in contact with someone who was confirmed or suspected to have Coronavirus / COVID-19? No / Unsure 10/05/2020 3:13 PM EDT documented as of this encounter [...] PMI-Posttraumat ic Stress Disorder (PTSD) On track( 10:19 AM EDT) Diamond Perrin LCSW [phone] Describe the history and nature of the posttraumatic stress disorder (PTSD) and any other reactions to the trauma. Care Plan PMI-Posttraumat ic Stress Disorder (PTSD) On track( 021 12:59 PM EDT) No Diamond Gilbert LCSW MARS GOAL 9 - Fulfilling and satisfying life Care Plan PMI-Posttraumat ic Stress Disorder (PTSD) Minimal progress(07/2020 1:56 PM EDT) No Diamond Gilbert LCSW Note: Pt. will report at least [...] documented as of this encounter Care Teams Director Operations Relationship Specialty Start Date End Date Alec Dahl MD [address] [place] [address] PCP - General 09/22/19 Diaomnd Gilbert LCSW [address] [place] [address] Show Operations Supervisor Clinical Social Work 02/23/20 12/12/20 Venita Lowe MD [address] [place] [address] Psychiatry, General 02/29/20 11/09/20 Heidi Rebollar LCSW [address] [place], [place] [phone] Show Operations Supervisor Social Work 03/04/20 12/12/20 Laci Colbert MD [address] [place] [address] Surgery, Orthopedic 10/05/20 Mariam Reese MD [address] [place] [address] Endocrinology 10/05/20 Tania Wesley PsyD [address] [place] [address] Primary Clinician Psychology 10/14/20 12/12/20 Becka Bentley LPCA [address] [place] [address] Clinician Social Work 10/14/20 10/20/20 Raina Hale DO [address] [place] [address] Resident Psychiatry, General 11/10/20 11/10/20 Raina Hale DO [address] [place] [address] Resident Psychiatry, General 11/10/20 08/24/21 Jenna Robert MD [address] [place], [place] [phone] Primary Attending Psychiatry, General 12/13/2008/21 Sam Glasgow MD [address] [place], [place] [phone] Primary Attending Psychiatry, General 08/25/2109/11 Eliana Maldonado DO [address] [place], [place] [phone] Resident Psychiatry, General 09/18/21 11/09/21 Sarah Beth Tee DO [address] [place], [place] [phone] Psychiatry, General 09/28/22 03/20/23 Anne Schuler LCSW [address] [place], [place] [phone] Show Operations Supervisor Clinical Social Work 11/08/23 Saira Darnell DO [address] [place] [address] Psychiatry, General 09/11/24 Lashell Crouch MD [address] [place], [place] [phone] Primary Attending Psychiatry, General 09/12/24 documented as of this encounter
--- OUTSIDE RECORDS SUMMARY | 2024-11-09 14:07 | XMS_ITS | Encounter Summary ---
Author Organization [facility] Address [address] [place] [address] Care Team Providers Care Seismograph Operator Helper Name Role Phone Alec Dahl MD Primary Care Provider [phone] Laci Colbert MD Unavailable [phone] Mariam Reese MD Unavailable [phone] Jenna Robert MD Unavailable [phone] Sam Glasgow MD Unavailable Sarah Beth Tee DO Unavailable [phone] Anne Schuler LCSW Unavailable [phone] Saira Darnell DO Unavailable [phone] Lashell Crouch MD Unavailable [phone] Reason for Visit * Reason Comments Medication Refill Encounter Details Date Type Department Care Team (Late st Contact Info) Description 03/26/2022 Refill [facility] [address] [place] [address] Davis Olsen MD [address] [place] [address] Social History Tobacco Use Types Packs/Day [...] Exposure Response Date Recorded In the last 10 days, have yo u been in contact with someone who was confirmed or suspected to have Coronavirus/COVID-19? No / Unsure 03/06/2022 1:02 PM EST documented as of this encounter [...] documented as of this encounter Care Teams Seismograph Operator Helper Relationship Specialty Start Date End Date Alec Dahl MD [address] [place] [address] PCP - General 09/22/19 Laci Colbert MD [address] [place] [address] Surgery, Orthopedic 10/05/20 Mariam Reese MD [address] [place] [address] Endocrinology 10/05/20 Jenna Robert MD [address] [place] [address] Primary Attending Psychiatry, General 12/13/2008/21 Sam Glasgow MD [address] [place] [address] Primary Attending Psychiatry, General 08/25/2109/11 Sarah Beth Tee DO [address] [place] [address] Psychiatry, General 09/28/22 03/20/23 Anne Schuler LCSW [address] [place] [address] Sales And Training Specialist Clinical Social Work 11/08/23 Saira Darnell DO [address] [place] [id number] Psychiatry, General 09/11/24 Lashell Crouch MD [address] [place], [place] [phone] Primary BH Attending Psychiatry, General 09/12/24 documented as of this encounter
--- OUTSIDE RECORDS SUMMARY | 2024-11-09 14:07 | XMS_ITS | Encounter Summary ---
Author Organization [facility] and [facility] Address [address] [place] [phone] Care Team Providers Care Therapist Asst Name Role Phone Alec Dahl MD Primary Care Provider [phone] Encounter Details Date Type Department Care Team (Late st Contact Info) Description 11/11/2020 Scanned Document [facility] Endocrinology [address] [place], [place] [id number] Mariam Reese MD [address] [place] [phone] Social History Tobacco Use Types Packs/Day Years [...] EDT Telemedicine Neurosurgery at [address] [facility] [place][Note 2] [address] [place] [address] James Reynolds MD [address] [place] [phone] 12/21/2024 10:00 AM EDT Office Visit [facility] [address] [place] [address] Oziel Isabel MD [address] [place] [phone] documented as of this encounter Visit Diagnoses Not on filedocumented in this encounter Care Teams Therapist Asst Relationship Specialty Start Date End Date lAec Dahl MD [address] [place] [phone] PCP - General Internal Medicine 02/23/20 documented as of this encounter
--- OUTSIDE RECORDS SUMMARY | 2024-11-09 14:07 | XMS_ITS ---
Care Plan Created on: November 09, 2024 Nory Anderson : 1980 Sex: Female Author Organization [facility] Address [address] [place] [id number] Care Team Providers Care Photo Checker Name Role Phone Alec Dahl MD Primary Care Provider Laci Colbert MD Unavailable [phone] Mariam Reese MD Unavailable [phone] Anne Schuler INSURANCE SERVICE REPRESENTATIVE Unavailable Saira Darnell DO Unavailable [phone] Lashell Crouch MD Unavailable Active Problems * This document contains information received from the source organization and may not represent a complete record from that organization. Problem Noted Date Diagnosed Date Thyroid nodule 05/15/2021 Overview (07/25/2021): 40 y/o female with complicated medical history and recent repair of an intercranial aneurysm 12/30/20. 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 Closed fracture of shaft of fibula 06/28/2020 Achilles tendinitis of right lower extremity 05/2020 PTSD (post-traumatic stress disorder) 02/29/2020 Unspecified mood (affective) disorder 02/29/2020 Other chronic pain 02/29/2020 Osteoarthritis of carpometacarpal (CMC) joint of thumb 11/16/2019 Carpal tunnel syndrome 11/16/2019 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 Author Enhance and strengthen a sense of competence in managing daily stress. Care Plan PMI-Posttraumati c Stress Disorder (PTSD) On track(2020 10:18 AM EDT) Diamond Perrin LCSW Note: [...] as depression or substance abuse. Care Plan PMI-Posttraumati c Stress Disorder (PTSD) On track(2020 10:19 AM EDT) Diamond Perrin LCSW [phone] Describe the history and nature of the posttraumatic stress disorder (PTSD) and any other reactions to the trauma. Care Plan PMI-Posttraumati c Stress Disorder (PTSD) On track(2020 12:59 PM EDT) No Diamond Gilbert LCSW MARS GOAL 9 - Fulfilling and satisfying life Care Plan PMI-Posttraumati c Stress Disorder (PTSD) Minimal progress(07/2020 1:56 PM [...] group psychotherapy, individual psychotherapy and medication maintenance Patient-Stated Goal: feel more energy and motivation Care Plan Need for Continued Psychiatric Medication Management No Sam Glasgow MD Patient will report symptoms have been significantly reduced and no longer interfere with their functioning, symptoms will have been stabilized without the need for a higher level of care for at least one year. Care Plan Need for Continued Psychiatric Medication Management No Sam Glasgow MD Patient-reported Measure Care Plan Need for Continued Psychiatric Medication Management Sam Locke MD Note: Patient will report at least a 1 point increase on the MARS-12 outcome measure item (#6) I feel accepted as who I am on the next administration of the measure. Patient will participate in self-esteem oriented activities in future appointments Frequency: Every 12 weeks or earlier if clinically indicated Duration: 20-60 minute appointment Modality: Medication Management Will identify and work to reduce the impact of symptoms on functioning by focusing on recovery and assisting the patient in making informed decisions regarding the treatment options Care Plan Need for Continued Psychiatric Medication Management No Sam Glasgow MD Note: Frequency: Every 12 weeks or earlier if clinically indicated Duration: 20-60 minute appointment Modality: Medication Management Applies to all interventions, unless otherwise indicated Interventions Care Plan Interventions Intervention Entry Date Outcome Support the client in following through with his/her commitments toward having a meaningful and fulfilling work, family, and social life. 02/20/2024 Note: Monitor medication compliance, side effects, and effectiveness. Confer with physician regularly. 02/20/2024 Note: Monitor the client's compliance with prescribed medication and sensitize him/her to potential side effects; report any significant reactions to the prescribing doctor. 02/20/2024 Note: Monitor medication compliance, side effects, and effectiveness. Confer with physician regularly. 02/20/2024 Note: Order, interpret, and integrate into treatment plan results of specialty medical consultations as appropriate 02/20/2024 Order and interpret results of laboratory (blood or other body fluid) tests as indicated 02/20/2024 Provider will prescribe and manage medication 02/20/2024 Provider will endeavor to ensure optimal functioning is attained and maintained through treatment 02/20/2024 Provider will provide ongoing and systematic re-assessment of treatment response, symptoms, functional status, quality of life, as well as maintenance of safety of self and others 02/20/2024 Patient will utilize coping skills to enhance functioning in the community 02/20/2024 Patient will participate in psychotherapy as needed. If required, provider will collaborating with other care team members to ensure continuity of care 02/20/2024 Patient will routine ongoing medication management a minimum of every 3 months or as determined by patient need and provider assessment 02/20/2024 Assess for any issues of age, gender, or culture that could help explain the client's currently defined problem behavior and factors that could offer a better understanding of the client's behavior. 03/03/2020 Note:Assess for any issues of age, gender, or culture that could help explain the client's currently defined problem behavior and factors that could offer a better understanding of the client's behavior. Frequency: 3 Times Weekly Duration: 30 days Modality: Group psychotherapy, individual psychotherapy and medication maintenance Notes: Assess the patient for the presence of other medical problems and medications used to treat them. 03/03/2020 Note:Assess the patient for the presence of other medical problems and medications used to treat them. Frequency: 3 Times Weekly Duration: 30 days Modality: Group psychotherapy, individual psychotherapy and medication maintenance Notes: Ask the client about the nature of current interactions, expectations about current relationships and their fulfillment or lack of fulfillment, satisfactions/dissatisfactions with current relationships, and what the client would like to be different. 03/03/2020 Note:Ask the client about the nature of current interactions, expectations about current relationships and their fulfillment or lack of fulfillment, satisfactions/dissatisfactions with current relationships, and what the client would like to be different. Frequency: 3 Times Weekly Duration: 30 days Modality: Group psychotherapy, individual psychotherapy and medication maintenance Notes: Related Goals and Interventions Goal Associated Intervent ions Enhance and strengthen a sen se of competence in managing daily stress. Ask the client about the nature of curre nt interactions, expectations about current relationships and their fulfillment or lack of fulfillment, satisfactions/dissatisfactions with current relationships, and what the client would like to be different. [phone] Describe other s ymptoms or disorders that may also be present, such as depression or substance abuse. Assess the patient for the presence of other medical problems and medications used to treat them. [phone] Describe the his tory and nature of the posttraumatic stress disorder (PTSD) and any other reactions to the trauma. Assess for any issues of age, gender, or culture that could help explain the client's currently defined problem behavior and factors that could offer a better understanding of the client's behavior. Patient-Stated Goal: feel m ore energy and motivation Monitor medication compliance, side effects, and effectiveness. Confer with physician regularly. Patient will report symptoms have been significantly reduced and no longer interfere with their functioning, symptoms will have been stabilized without the need for a higher level of care for at least one year. Monitor medication compliance, side effects, and effectiveness. Confer with physician regularly.; Monitor the client's compliance with prescribed medication and sensitize him/her to potential side effects; report any significant reactions to the prescribing doctor. Patient-reported Measure Support the cli ent in following through with his/her commitments toward having a meaningful and fulfilling work, family, and social life. Will identify and work to re duce the impact of symptoms on functioning by focusing on recovery and assisting the patient in making informed decisions regarding the treatment options Order, interpret, and integrate into treatment plan results of specialty medical consultations as appropriate; Order and interpret results of laboratory (blood or other body fluid) tests as indicated; Provider will prescribe and manage medication; Provider will endeavor to ensure optimal functioning is attained and maintained through treatment; Provider will provide ongoing and systematic re-assessment of treatment response, symptoms, functional status, quality of life, as well as maintenance of safety of self and others; Patient will utilize coping skills to enhance functioning in the community; Patient will participate in psychotherapy as needed. If required, provider will collaborating with other care team members to ensure continuity of care; Patient will routine ongoing medication management a minimum of every 3 months or as determined by patient need and provider assessment
--- OUTSIDE RECORDS SUMMARY | 2024-11-09 14:07 | XMS_ITS | Encounter Summary ---
Author Organization [facility] Address [address] [place] [address] Care Team Providers Care Leather Grader Name Role Phone Alec Dahl MD Primary Care Provider [phone] Laci Colbert MD Unavailable [phone] Mariam Reese MD Unavailable [phone] Sam Glasgow MD Unavailable Anne Schuler [facility] Unavailable [phone] Saira Darnell DO Unavailable [phone] Lashell Crouch MD Unavailable [phone] Encounter Details Date Type Department Care Team (Late st Contact Info) Description 08/12/2024 Scanned Document [address] [place] [phone] Provider, Generic Social History Tobacco Use Types Packs/Day Years [...] Disorder (PTSD) On track(2020 12:59 PM EDT) Diamond Perrin LCSW MARS [...] Medication Management No Sam Glasgow MD Note: Patient will report at least [...] Applies to all interventions, unless otherwise indicated documented as of this encounter Procedures Procedure Name Priority Date/Time Associated Diagnosis Comments MRI EXTERNAL RESULT 08/12/2024 documented in this encounter Results * MRI External Result (08/12/2024) Anatomical Region Laterality Modality Magnetic Resonan ce Narrative 08/12/2024 Ordered by an unspecified provider. us Generic Provider IMG MRI ORDERABLES Final Result documented in this encounter Visit Diagnoses Not on filedocumented in this encounter Additional Health Concerns Active Problems Noted Date Diagnosed Date PMI-Posttraumatic Stress Disorder (PTSD) 021 Need for Continued Psychiatric Medication Manage ment 02/20/2024 documented as of this encounter Care Teams Leather Grader Relationship Specialty Start Date End Date Alec Dahl MD [address] [place] [address] [address] [place] [address] PCP - General 09/22/19 Laci Colbert MD [address] [place] [id number] Surgery, Orthopedic 10/05/20 Mariam Reese MD [address] [place] [address] [address] [place] [address] Endocrinology 10/05/20 Sam Glasgow MD [address] [place] [address] Primary Attending Psychiatry, General 08/25/2109/11 Anne Schuler, ASSEMBLER [employer] [address] [place] [address] Technical Program Manager Clinical Social Work 11/08/23 Saira Darnell DO [address] [place] [address] Psychiatry, General 09/11/24 Lashell Crouch MD [address] [place] [address] Primary Attending Psychiatry, General 09/12/24 documented as of this encounter
--- OUTSIDE RECORDS SUMMARY | 2024-11-09 14:07 | XMS_ITS | Encounter Summary ---
Author Organization [facility] Address [address] [place] [id number] Care Team Providers Care Gridcap Machine Operator Name Role Phone Alec Dahl MD Primary Care Provider [phone] Laci Colbert MD Unavailable Mariam Reese MD Unavailable Raina Hale DO Unavailable Jenna Robert MD Unavailable [phone] Sam Glasgow MD Unavailable Eliana Maldonado DO Unavailable Sarah Beth Tee DO Unavailable Anne SchulerW Unavailable Saira Darnell DO Unavailable Lashell Crouch MD Unavailable Encounter Details Date Type Department Care Team (Late st Contact Info) Description 02/27/2021 Scanned Document [facility] [address] [place] [phone] Provider, MD Niurka [address] [place] [address] Social History Tobacco Use Types Packs/Day Years [...] have Coronavirus / COVID-19? No / Unsure 02/27/2021 9:02 AM EST documented as of this encounter Plan [...] PMI-Posttraumat ic Stress Disorder (PTSD) On track( 12:59 PM EDT) Diamond Perrin LCSW MARS GOAL 9 - Fulfilling and satisfying life Care Plan PMI-Posttraumat ic Stress Disorder (PTSD) Minimal progress(07/2020 1:56 PM EDT) Diamond Perrin, GASSER MACHINE OPERATOR Note: Pt. will report at least a [...] documented as of this encounter Care Teams Gridcap Machine Operator Relationship Specialty Start Date End Date Alec Dahl MD [address] [place] [address] PCP - General 09/22/19 Laci Colbert MD [address] [place] [address] Surgery, Orthopedic 10/05/20 Mariam Reese MD [address] [place] [address] Endocrinology 10/05/20 Raina Hale DO [address] [place] [address] Resident Psychiatry, General 11/10/20 08/24/21 Jenna Robert MD [address] [place] [address] Primary BH Attending Psychiatry, General 12/13/2008/21 Sam Glasgow MD [address] [place] [address] Primary Attending Psychiatry, General 08/25/2109/11 Eliana Maldonado DO [address] [place] [address] Resident Psychiatry, General 09/18/21 11/09/21 Sarah Beth Tee DO [address] [place] [address] Psychiatry, General 09/28/22 03/20/23 Anne Schuler LCSW [address] [place] [address] Assistant Professor Of Forestry Clinical Social Work 11/08/23 Saira Darnell DO [address] [place] [address] Psychiatry, General 09/11/24 Lashell Crouch MD [address] [place] [address] Primary Attending Psychiatry, General 09/12/24 documented as of this encounter
--- OUTSIDE RECORDS SUMMARY | 2024-11-09 14:07 | XMS_ITS | Clinical Summary ---
Author Organization [facility] Address [address] [place] [id number] Care Team Providers Care [employer] Name Role Phone Alec Dahl MD Primary Care Provider Laci Colbert MD Unavailable [phone] Mariam Reese MD Unavailable [phone] Anne Schuler BLOOD AND PLASMA LABORATORY ASSISTANT Unavailable [phone] Saira Darnell DO Unavailable [phone] Lashell Crouch MD Unavailable Allergies Active Allergy Reactions Criticality Noted Date Comments Latex Swelling,Rash/Dermatitis Medium 09/22/2019 Localized swelling Medications * This document contains information received from the source organization and may not represent a complete record from that organization. dronabinol (MARINOL) 5 MG capsule TAKE 1 CAPSULE BY MOUTH TWICE A DAY BEFORE LUNCH AND EVENING MEAL/DINNER 02/22/20 20 Active cholecalciferol (CHOLECALCIFEROL) 1.25 MG (26296 UT) capsuleIndications :Mood disorder TAKE 1 TABLET (50,000 UNITS TOTAL) BY MOUTH ONCE A WEEK. 12 capsule 1 10/02/19 21 Active famotidine (PEPCID) 40 MG tablet famotidine 40 mg tablet Active OMEprazole (PriLOSEC) 40 MG capsule omeprazole 40 mg capsule,delayed release TAKE 1 CAPSULE BY MOUTH EVERY DAY Active acetaminophen (TYLENOL) 325 MG tablet Take 650 mg by mouth 4 times daily (every 6 hours) as needed for mild pain. Active Cannabis (MARIJUANA) [facility] Prescription Strength Inhale nightly as needed. 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 To prevent clots in legs/lungs. 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 30 tablet 10/21/19 Active senna-docusate (SENNA-S) 8.6-50 MGIndications:Clos ed fracture of shaft of right fibula with nonunion, unspecified fracture morphology, subsequent encounter Take 1 tablet by mouth daily. 60 tablet 10/21/19 Active naproxen (NAPROSYN) 500 MG tablet Take 1 tablet (500 mg total) by mouth 2 (two) times a day as needed for mild pain (pain). Take with food 14 tablet 11/02/19 Active ondansetron (ZOFRAN-ODT) 4 MG disintegrating tablet Take 1 tablet (4 mg total) by mouth 3 times daily (every 8 hours) as needed for nausea or vomiting. Place tablet on tongue to dissolve. 10 tablet 11/02/19 Active naloxone (NARCAN) 4 mg/0.1 mL Liquid nasal spray deviceIndications: Opioid dependence on agonist therapy (HCC) 1 spray (4 mg total) into each nostril once as needed for opioid reversal. [place] contents (4mg) into one nostril once. May repeat every 2 to 3 minutes in alternating nostrils. Call 911 immediately after use. 1 each 1 11/16/19 Active clopidogrel (PLAVIX) 75 MG tablet Take 75 mg by mouth daily. Active aspirin 81 MG chewable tablet Chew 1 tablet (81 mg total) daily. Active proCHLORPERAZINE (COMPAZINE) 10 MG tablet Take 1 tablet (10 mg total) by mouth 3 times daily (every 8 hours) as needed for nausea or vomiting. may cause sedation 10 tablet 12/09/20 21 Active ticagrelor (BRILINTA) 90 MG tablet Take 90 mg by mouth. 02/07/20 21 Active [facility] Acetaminophen 325 MG tablet 01/01/20 21 Active albuterol (PROVENTIL HFA; VENTOLIN HFA) 108 (90 Base) MCG/ACT inhaler 02/25/19 22 Active fluticasone (FloVENT HFA) 44 mcg/puff inhaler Inhale 2 puffs. 02/25/19 22 Active nystatin (MYCOSTATIN) 753623 UNIT/ML suspensionIndicati ons:Thrush Take 5 mL (500,000 Units total) by mouth 4 (four) times a day. 280 mL 1 02/27/19 22 Active ondansetron (ZOFRAN-ODT) 4 MG disintegrating tabletIndications: Thrush Take 1 tablet (4 mg total) by mouth 3 times daily (every 8 hours) as needed for nausea or vomiting. Place tablet on tongue to dissolve. 20 tablet 02/27/19 22 Active clotrimazole (MYCELEX) 10 MG trocheIndications: Thrush Take 1 tablet (10 mg total) by mouth 5 (five) times a day. Allow to dissolve slowly over 15-30 minutes. 70 tablet 03/10/19 22 Active fluconazole (diFLUcan) 150 MG tablet Take 1 tablet (150 mg total) by mouth once a week. 4 tablet 09/29/19 23 Active ketoconazole (NIZORAL) 2 % cream Apply topically 2 (two) times a day. Apply to affected area twice daily 30 g 09/29/19 23 Active ofloxacin (OCUFLOX) 0.3 % ophthalmic solution Use two drops in the affected eye three times daily 5 mL 05/13/19 24 Active methylPREDNISolone (MEDROL DOSEPAK) 4 MG tablet Take as directed. Be sure to take all the tablets in decreasing doses as stated in the bobbi 21 tablet 08/22/19 24 Active diclofenac enteric coated (VOLTAREN) 75 MG EC tabletIndications: Closed displaced segmental fracture of shaft of right fibula, sequela TAKE 1 TABLET (75 MG TOTAL) BY MOUTH TWICE A DAY WITH MEALS TO AVOID GI UPSET 60 tablet 12/20/19 24 Active guaiFENesin-codein e (ROBITUSSIN AC) liquid Take 5 mL by mouth every 4 (four) hours as needed for cough. 120 mL 05/21/19 25 Active azithromycin (ZITHROMAX) 250 MG tablet Take two on first day, then one daily for four additional days 6 tablet 07/18/19 25 Active amphetamine-dextro amphetamine (ADDERALL XR) 20 MG 24 hr capsuleIndications :ADHD (attention deficit hyperactivity disorder), inattentive type Take 1 capsule (20 mg total) by mouth every morning. Max Daily Amount: 20 mg 30 capsule 09/12/19 25 025 Active ARIPiprazole (ABILIFY) 2 MG tabletIndications: Moderate episode of recurrent major depressive disorder (HCC) Take 1 tablet (2 mg total) by mouth daily. 30 tablet 09/12/19 25 Active sertraline (ZOLOFT) 100 MG tabletIndications: Moderate episode of recurrent major depressive disorder (HCC),PTSD (post-traumatic stress disorder) Take 2 tablets (200 mg total) by mouth daily. 60 tablet 09/12/19 25 025 Active traZODone (DESYREL) 50 MG tabletIndications: Moderate episode of recurrent major depressive disorder (HCC),PTSD (post-traumatic stress disorder) Take 1-3 tablets (50-150 mg total) by mouth nightly as needed for sleep. 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 Date Type Department Care Team Description 10/30/2024 12:37 PM EDT - 10/30/2024 11:59 PM EDT Hospital Encounter [facility] [address] [place] [address] System, Provider Not In Neurofibromatosis, type 1 (HCC); Other intervertebral disc displacement, lumbar region; Chronic pain syndrome Discharge Disposition: Home or Self Care 10/30/2024 12:37 PM EDT - 10/30/2024 11:59 PM EDT Hospital Encounter [facility] [address] [place] [address] System, Provider Not In Neurofibromatosis, type 1 (HCC); Other intervertebral disc displacement, lumbar region; Chronic pain syndrome; Myositis ossificans progressiva, unspecified site Discharge Disposition: Home or Self Care 10/30/2024 Travel 10/19/2024 11:29 AM EDT - 10/19/2024 11:59 PM EDT Hospital Encounter [facility] [address] [place] [address] System, Provider Not In Neurofibromatosis, type 1 (HCC); Other intervertebral disc displacement, lumbar region; Chronic pain syndrome Discharge Disposition: Home or Self Care 10/19/2024 11:29 AM EDT Hospital Encounter [facility] [address] [place] [address] System, Provider Not In Severe back pain Discharge Disposition: Home or Self Care 10/19/2024 Travel 08/19/2024 8:31 AM EDT - 08/19/2024 11:59 PM EDT Hospital Encounter [facility] [address] [place] [phone] System, Provider Not In Spinal stenosis of lumbar region at multiple levels; Severe back pain Discharge Disposition: Home or Self Care 08/19/2024 8:31 AM EDT - 08/19/2024 11:59 PM EDT Hospital Encounter [facility] [address] [place] [address] James Reynolds MD Intracranial aneurysm Discharge Disposition: Home or Self Care 08/19/2024 Travel 08/12/2024 Scanned Document [address] [place] [phone] Provider, Generic from Last 3 Months Immunizations Immunization Administration Dates Next Due Rho (D) Immune Globulin 07/18/2017,02/27/2015 Tdap 06/12/2017,02/11/2015 Family History Medical History Relation Name Comments Dementia Brother Drug abuse Cousin Heart attack Father [place] Stroke Maternal Aunt Bren Melanoma Maternal Grandfather Devin Alcohol abuse Maternal Uncle Palomo Substance Abuse Maternal Uncle Palomo Anxiety disorder Mother Galina Autism spectrum disorder Mother Galina Brain cancer Mother Galina COPD Mother Galina Dementia Mother Galina Depression Mother Galina Breast cancer Paternal Aunt 1 Jess Colon cancer Paternal Aunt 1 Jess Ovarian cancer Paternal Aunt 2 Karhy Lung cancer Paternal Grandfather Lewellyn Alcohol abuse Paternal Uncle Eliana Substance Abuse Paternal Uncle Eliana Autism spectrum disorder Son 1 Issa Learning disabilities Son 1 Issa Relation Name Status Comments Brother Alive Cousin Daughter Cathie Brock Alive Father [place] Maternal Aunt Bren Maternal Grandfather Devin Maternal Uncle Palomo Mother Galina Paternal Aunt 1 Jess Paternal Aunt 2 Karhy Paternal Grandfather Lewellyn Paternal Uncle Eliana Son 1 Issa Alive Son 2 Giacomo Brock Alive Social History Tobacco Use Types Packs/Day Years Used Date Smoking Tobacco: Every Day Cigarettes Smokeless Tobacco: Never Tobacco Cessation:Ready to Q uit: Yes Comments:working up to it Alcohol Use Standard [...] Orientation Heterosexual (straight) 01/29 4:44 PM EST Last Filed Vital Signs Vital Sign Reading Time Taken Comments Blood Pressure 138/82 07/17/2024 11:07 AM EDT Pulse 92 07/17/2024 11:07 AM EDT Temperature 36.8 C (98.3 F) 07/17/2024 11:07 AM EDT Respiratory Rate 16 07/17/2024 11:07 AM EDT Oxygen Saturation 98% 07/17/2024 11:07 AM EDT Inhaled Oxygen Concentration - - Weight 102 kg (225 lb) 07/17/2024 11:07 AM EDT Height 154.9 cm (5' 1 ) 02/27/2021 9:19 AM EST Body Mass Index 42.51 02/27/2021 9:19 AM EST Plan of Treatment Health Maintenance Due Date Last Done Comments Hepatitis C Virus Screening 1981 HIV Screening 1994 Hepatitis B Vaccines (1 of 3 - 19+ 3-dose series) 2000 Pneumococcal Vaccine: Pediat veronica (0-5 Years) and At-Risk Patients (6 to 49 Years) (1 of 2 - PCV) 2000 Pap Smear (Ages 21-65) 2002 HPV Vaccines (1 - 3-dose SCD M series) 2008 Mammogram 2021 Influenza Vaccine 09/25/2024 COVID-19 Vaccine (3 - 2024-2 6 season) 2024 07/12/2020, 06/11/2020 DTaP/Tdap/Td Vaccines (3 - T d or Tdap) 06/13/2027 06/12/2017, 02/11/2015 Chronic Controlled Substance User PDMP Review Discontinued 06/25/2024, 02/20/2024, 12/26/2023, Additional history exists Goals Goal Patient Goal Type Associated Problems [...] Applies to all interventions, unless otherwise indicated Medical Devices Implanted Type Area Regulatory Product Manager Device Identifier Shelf Expiration Date Model / Serial / Lot 223.561 Plate [id number] 6 Hole Lmt Cntct Taper End Ss Bone Lcp - [id number] Implanted:Qty: 1 on 10/20/2020 by Laci Colbert MD at [facility] Plate DEPUY SYNTHES - A JERILYN AND 223.561 / / 204.812 Screw Bone Feliberto 2.5mm Flthrd 12mm Ss 3.5mm Slftp Lp Sm Hex - [id number] Implanted:Qty: 3 on 10/20/2020 by Laci Colbert MD at [facility] Screw DEPUY SYNTHES - A JERILYN AND 204.812 / / 204.814 Screw Bone Feliberto 2.5mm Flthrd 14mm Ss 3.5mm Slftp Lp Sm Hex - [id number] Implanted:Qty: 3 on 10/20/2020 by Laci Colbert MD at [facility] Screw DEPU[employer] SYNTHES - A JERILYN AND 204.814 / / 204.816 Screw Bone Feliberto 2.5mm Flthrd 16mm Ss 3.5mm Slftp Lp Sm Hex - [id number] Implanted:Qty: 1 on 10/20/2020 by Laci Colbert MD at [facility] Screw DEPU[employer] SYNTHES - A JERILYN AND [id number] / / Procedures Procedure Name Priority Date/Time Associated Diagnosis Comments MRI CERVICAL SPINE W W/O CONTRAST Routine 10/30/2024 2:20 PM EDT Neurofibromatosis, 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, lumbar region Chronic pain syndrome MRI THORACIC SPINE W W/O CONTRAST Routine 10/30/2024 2:13 PM EDT Neurofibromatosis, 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, lumbar region Chronic pain syndrome Myositis ossificans progressiva, unspecified site MRI SACRUM WITH & WITHOUT IV CONTRAST Routine 10/19/2024 12:42 PM EDT Neurofibromatosis, 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, lumbar region Chronic pain syndrome MRI LUMBAR SPINE W/O CONTRAST Routine 10/19/2024 12:38 PM EDT Severe back pain MRA HEAD W/O CONTRAST Routine 08/19/2024 9:18 AM EDT Intracranial aneurysm MRI LUMBAR SPINE W/O CONTRAST Routine 08/19/2024 9:17 AM EDT Spinal stenosis of lumbar region at multiple levels Severe back pain MRI EXTERNAL RESULT 08/12/2024 from Last 3 Months Results * MRI Cervical Spine w w/o contrast (10/30/2024 2:20 PM EDT) Anatomical Region Laterality Modality C-spine Magnetic Resonan ce 10/30/2024 3:20 PM EDT Impressions 10/30/2024 3:31 PM EDT Cervical vertebral body heights and alignment are maintained. No cervical cord signal abnormality or volume loss. No suspicious enhancement in the cervical cord. Mild enhancing soft tissue seen in the precervical soft tissues involving the longus colli muscles and in the posterior aerodigestive soft tissues. This could be due to localized edema, infection or inflammation. Please correlate for any corresponding clinical symptoms. Recommend CT with contrast follow-up if further assessment is still needed. Mild discogenic and facet related degenerative change of the cervical spine. No significant cervical central canal stenosis. There is mild right C5/6 foraminal narrowing. Results were sent to Dr. Alec Dahl's office on 10/30/2024 with confirmation of receipt by phone. Fax call Narrative 10/30/2024 3:31 PM EDT MRI CERVICAL SPINE W W/O CONTRAST HISTORY: Chronic pain syndrome, Other intervertebral disc displacement, lumbar region, myositis ossificans progressiva, unspecified site. COMPARISON: MRI 10/27/2020 TECHNIQUE: MRI of the cervical spine obtained utilizing a superconducting magnet. Multi planar T1 and T2 weighted sequences were obtained with and without contrast. CONTRAST: 10 cc of Gadavist. FINDINGS: The cervical vertebral body heights are maintained. No significant cervical subluxation. No abnormal cervical marrow edema. There is no cervical or upper thoracic cord volume loss or discrete signal abnormality. No cervical cord syrinx. No cerebellar tonsillar ectopia Axial levels show the following: C2/3: No significant central canal or foraminal narrowing. C3/4: Small disc osteophyte complex with mild facet disease. No significant central canal or foraminal narrowing. C4/5: Small disc osteophyte complex with mild facet arthropathy. No significant central canal narrowing. No significant foraminal narrowing. C5/6: Small disc osteophyte complex with facet arthropathy. No significant central canal narrowing. There is mild right foraminal narrowing. No significant left foraminal. C6/7: No significant central canal or foraminal narrowing. C7/T1: No significant central canal or foraminal narrowing. There is mild enhancing soft tissue seen in the precervical soft tissues involving the longus colli muscles and in the posterior aerodigestive soft tissues. This could be due to localized edema, infection or inflammation. Please correlate for any corresponding clinical symptoms. Procedure Note Orion Man MD - 10/30/2024 MRI CERVICAL SPINE W W/O CONTRAST HISTORY: Chronic pain syndrome, Other intervertebral disc displacement,lumbar region, myositis ossificans progressiva, unspecified site. COMPARISON: MRI 10/27/2020 TECHNIQUE: MRI of the cervical spine obtained utilizing a superconductingmagnet. Multi planar T1 and T2 weighted sequences were obtained with andwithout contrast. CONTRAST: 10 cc of Gadavist. FINDINGS: The cervical vertebral body heights are maintained. No significantcervical subluxation. No abnormal cervical marrow edema. There is no cervical or upper thoracic cord volume loss or discrete signalabnormality. No cervical cord syrinx. No cerebellar tonsillar ectopia Axial levels show the following: C2/3: No significant central canal or foraminal narrowing. C3/4: Small disc osteophyte complex with mild facet disease. Nosignificant central canal or foraminal narrowing. C4/5: Small disc osteophyte complex with mild facet arthropathy. Nosignificant central canal narrowing. No significant foraminal narrowing. C5/6: Small disc osteophyte complex with facet arthropathy. No significantcentral canal narrowing. There is mild right foraminal narrowing. Nosignificant left foraminal. C6/7: No significant central canal or foraminal narrowing. C7/T1: No significant central canal or foraminal narrowing. There is mild enhancing soft tissue seen in the precervical soft tissuesinvolving the longus colli muscles and in the posterior aerodigestive softtissues. This could be due to localized edema, infection or inflammation.Please correlate for any corresponding clinical symptoms. IMPRESSION: Cervical vertebral body heights and alignment are maintained. No cervical cord signal abnormality or volume loss. No suspiciousenhancement in the cervical cord. Mild enhancing soft tissue seen in the precervical soft tissues involvingthe longus colli muscles and in the posterior aerodigestive soft tissues.This could be due to localized edema, infection or inflammation. Pleasecorrelate for any corresponding clinical symptoms. Recommend CT with contrast follow-up if furtherassessment is still needed. Mild discogenic and facet related degenerative change of the cervicalspine. No significant cervical central canal stenosis. There is mild rightC5/6 foraminal narrowing. Results were sent to Dr. Alec Dahl's office on 10/30/2024 with confirmationof receipt by phone. Fax call us Alec Dahl MD [facility] MRI ORDERABLES Final Result * MRI Thoracic spine w w/o contrast (10/30/2024 2:13 PM EDT) Anatomical Region Laterality Modality T-spine Magnetic Resonan ce 10/30/2024 2:34 PM EDT Impressions 10/30/2024 2:49 PM EDT Wedging of the T9 vertebral body with a superior endplate Schmorl's node. No abnormal marrow edema in this vertebral body. This is consistent with bony remodeling from degenerative change or a remote compression fracture. 1.1 cm T1 hypointense lesion in the T3 vertebral body demonstrating peripheral T2 hyperintensity and enhancement. This is indeterminant, possibly a hemangioma. A more ominous bony lesion is in the differential. Recommend clinical and imaging follow-up for this finding. Correlation with radiographs or CT may be helpful. No thoracic cord volume loss or discrete signal abnormality. No suspicious enhancement of the thoracic cord or the thecal sac. Narrative 10/30/2024 2:49 PM EDT MRI THORACIC SPINE W W/O CONTRAST HISTORY: Chronic pain syndrome, Other intervertebral disc displacement, lumbar region, myositis ossificans progressiva, unspecified site. COMPARISON: None available TECHNIQUE: MRI of the thoracic spine obtained utilizing a superconducting magnet. Multi planar T1 and T2 weighted sequences were obtained with and without contrast. CONTRAST: 10 cc of Gadavist. FINDINGS: There is wedging of the T9 vertebral body without abnormal marrow edema. This is most likely related to a prominent superior endplate Schmorl's node T9 or a remote compression fracture. There is a T1 hypointense 11 mm rounded lesion in the T3 vertebral body demonstrating peripheral T2 hyperintensity and mild enhancement. This is indeterminant, possibly a hemangioma. Recommend clinical and imaging follow-up for this finding. The thoracic cord is normal in volume without discrete signal abnormality. The conus medullaris terminates at the upper L2 level. There is no thoracic cord syrinx. There is no suspicious enhancement involving the thoracic cord or the thecal sac. No abnormal enhancement of the epidural space. No significant thoracic central canal stenosis. There is no significant thoracic foraminal narrowing. No obvious paraspinal soft tissue collection or asymmetric enlargement. No suspicious enhancement in the para spinal tissues. Procedure Note Orion Man MD - 10/30/2024 MRI THORACIC SPINE W W/O CONTRAST HISTORY: Chronic pain syndrome, Other intervertebral disc displacement,lumbar region, myositis ossificans progressiva, unspecified site. COMPARISON: None available TECHNIQUE: MRI of the thoracic spine obtained utilizing a superconductingmagnet. Multi planar T1 and T2 weighted sequences were obtained with andwithout contrast. CONTRAST: 10 cc of Gadavist. FINDINGS: There is wedging of the T9 vertebral body without abnormal marrow edema.This is most likely related to a prominent superior endplate Schmorl'snode T9 or a remote compression fracture. There is a T1 hypointense 11 mm rounded lesion in the T3 vertebral bodydemonstrating peripheral T2 hyperintensity and mild enhancement. This isindeterminant, possibly a hemangioma. Recommend clinical and imagingfollow-up for this finding. The thoracic cord is normal in volume without discrete signal abnormality.The conus medullaris terminates at the upper L2 level. There is nothoracic cord syrinx. There is no suspicious enhancement involving thethoracic cord or the thecal sac. No abnormal enhancement of the epidural space. No significant thoracic central canal stenosis. There is no significantthoracic foraminal narrowing. No obvious paraspinal soft tissue collection or asymmetric enlargement. Nosuspicious enhancement in the para spinal tissues. IMPRESSION: Wedging of the T9 vertebral body with a superior endplate Schmorl's node.No abnormal marrow edema in this vertebral body. This is consistent withbony remodeling from degenerative change or a remote compressionfracture. 1.1 cm T1 hypointense lesion in the T3 vertebral body demonstratingperipheral T2 hyperintensity and enhancement. This is indeterminant,possibly a hemangioma. A more ominous bony lesion is in the differential.Recommend clinical and imaging follow-up for this finding. Correlation with radiographs or CT may be helpful. No thoracic cord volume loss or discrete signal abnormality. No suspiciousenhancement of the thoracic cord or the thecal sac. us Alec Dahl MD [facility] MRI ORDERABLES Final Result * MRI Sacrum with & without IV contrast (10/19/2024 12:42 PM EDT) Anatomical Region Laterality Modality Pelvis Magnetic Resonan ce 10/19/2024 1:06 PM EDT Impressions 10/19/2024 1:15 PM EDT No significant abnormality is identified. Narrative 10/19/2024 1:15 PM EDT MRI of the sacrum with and without contrast. HISTORY: Bilateral sacral and back pain COMPARISON: No priors TECHNIQUE: MRI of the sacrum was obtained with and without contrast. 10 cc Gadavist administered. FINDINGS: The sacroiliac joints are normal. There is no widening, erosion, ankylosis or joint effusion. There is no evidence for sacral insufficiency fracture. The muscle signal is normal. The marrow signal is normal without evidence of edema edema or fracture. Trace pelvic free fluid is nonspecific and may be physiologic. Procedure Note Danny Bob MD - 10/19/2024 MRI of the sacrum with and without contrast. HISTORY: Bilateral sacral and back pain COMPARISON: No priors TECHNIQUE: MRI of the sacrum was obtained with and without contrast. 10 ccGadavist administered. FINDINGS: The sacroiliac joints are normal. There is no widening, erosion, ankylosisor joint effusion. There is no evidence for sacral insufficiencyfracture. The muscle signal is normal. The marrow signal is normal without evidence of edema edema or fracture. Trace pelvic free fluid is nonspecific and may be physiologic. IMPRESSION: No significant abnormality is identified. us Alec Dahl MD [facility] MRI ORDERABLES Final Result * MRI Lumbar spine w/o contrast (10/19/2024 12:38 PM EDT) Only the most recent of2 resultswithin the time period is included. Anatomical Region Laterality Modality L-spine Magnetic Resonan ce 10/19/2024 2:52 PM EDT Impressions 10/19/2024 2:58 PM EDT Mild multilevel degenerative disc disease as above, unchanged and prior exam. Narrative 10/19/2024 2:58 PM EDT MRI LUMBAR SPINE WITHOUT INTRAVENOUS CONTRAST INDICATION: Severe back pain, h/o herniated discs, spinal sten. COMPARISON: 08/19/2024 TECHNIQUE: Multiplanar multisequential MR images were obtained of the lumbar spine without intravenous contrast. FINDINGS: Conus medullaris terminates at L1 and demonstrates normal signal intensity. There is multilevel degenerative disc disease with disc desiccation and endplate change. Vertebral body height, alignment, and marrow signal are maintained. T12/L1: There is no significant central canal or neuroforaminal stenosis. L1/2: There is no significant central canal or neuroforaminal stenosis. L2/3: Minimal broad-based disc bulge without significant neuroforaminal or spinal canal stenosis. L3/4: Broad-based disc bulge broad-based disc bulge without significant neuroforaminal or spinal canal stenosis. L4/5: Broad-based disc bulge with facet arthropathy and ligamentum flavum hypertrophy results in mild bilateral neuroforaminal narrowing. No spinal canal stenosis. L5/S1: Broad-based disc bulge with facet arthropathy results in mild bilateral neuroforaminal narrowing. No spinal canal stenosis. Procedure Note Danny Bob MD - 10/19/2024 MRI LUMBAR SPINE WITHOUT INTRAVENOUS CONTRAST INDICATION: Severe back pain, h/o herniated discs, spinal sten. COMPARISON: 08/19/2024 TECHNIQUE: Multiplanar multisequential MR images were obtained of thelumbar spine without intravenous contrast. FINDINGS: Conus medullaris terminates at L1 and demonstrates normal signalintensity. There is multilevel degenerative disc disease with discdesiccation and endplate change. Vertebral body height, alignment, andmarrow signal are maintained. T12/L1: There is no significant central canal or neuroforaminalstenosis. L1/2: There is no significant central canal or neuroforaminal stenosis. L2/3: Minimal broad-based disc bulge without significant neuroforaminal orspinal canal stenosis. L3/4: Broad-based disc bulge broad-based disc bulge without significantneuroforaminal or spinal canal stenosis. L4/5: Broad-based disc bulge with facet arthropathy and ligamentum flavumhypertrophy results in mild bilateral neuroforaminal narrowing. No spinalcanal stenosis. L5/S1: Broad-based disc bulge with facet arthropathy results in mildbilateral neuroforaminal narrowing. No spinal canal stenosis. IMPRESSION: Mild multilevel degenerative disc disease as above, unchanged and priorexam. 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 Narrative 08/19/2024 10:31 AM EDT MRA BRAIN WITHOUT CONTRAST INDICATION: Intracranial aneurysm COMPARISON 02/17/2024. ADMISSION DATE: 08/19/2024 8:31 AM TECHNIQUE: MR angiogram of [place] was performed with uoqz-ew-zngjxs technique without intravenous gadolinium. 3D reformatted images of the MRA was performed. FINDINGS: The petrous, cavernous, and supraclinoid portions of the internal carotid arteries appear normal. 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 The A1 and A2 segments of the anterior cerebral arteries appear within normal limits. The M1 segments of the middle cerebral arteries, including the bifurcations, appear normal. The intracranial vertebral arteries appear normal. The basilar artery appears normal. The posterior cerebral and superior cerebellar arteries appear patent. There is origin of the left posterior cerebral artery. MRA findings were confirmed on the 3D reformatted images. Procedure Note Danny Bob MD - 08/19/2024 MRA BRAIN WITHOUT CONTRAST INDICATION: Intracranial aneurysm COMPARISON 02/17/2024. ADMISSION DATE: 08/19/2024 8:31 AM TECHNIQUE: MR angiogram of [place] was performed cutwxdli-mm-navshh technique without intravenous gadolinium. 3D reformattedimages of the MRA was performed. FINDINGS: The petrous, cavernous, and supraclinoid portions of the internal carotidarteries appear normal. Stable 3 mm anterior communicating arteryaneurysm. The A1 and A2 segments of the anterior cerebral arteries appearwithin normal limits. The M1 segments of the middle cerebral arteries, including the bifurcations, appearnormal. The intracranial vertebral arteries appear normal. The basilar arteryappears normal. The posterior cerebral and superior cerebellar arteriesappear patent. There is origin of the left posterior cerebralartery. MRA findings were confirmed on the 3D reformatted images. 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 us James Reynolds MD IMG MRI ORDERABLES Final Res ult * MRI External Result (08/12/2024) Anatomical Region Laterality Modality Magnetic Resonan ce Narrative 08/12/2024 Ordered by an unspecified provider. us Generic Provider IMG MRI ORDERABLES Final Result from Last 3 Months Additional Health Concerns Active Problems Noted Date Diagnosed Date PMI-Posttraumatic Stress Disorder (PTSD) 021 Need for Continued Psychiatric Medication Manage ment 02/20/2024 Insurance [facility] PPO [facility] PPO Advance Directives * Full Code (Latest Code Status on File) Date Activated Date Inactivated Comments 10/20/2020 11:14 AM 11/01/2020 1:30 AM Care Teams Brick And Block Mason Relationship Specialty Start Date End Date Alec Dahl MD [address] [place] [id number] PCP - General 09/22/19 Laci Colbert MD [address] [place] [address] Surgery, Orthopedic 10/05/20 Mariam Reese MD [address] [place] [address] Endocrinology 10/05/20 Anne Schuler LCSW [address] [place] [address] Sugar Coating Hand Clinical Social Work 11/08/23 Saira Darnell DO [address] [place] [address], [place] [address] Psychiatry, General 09/11/24 Lashell Crouch MD [address] [facility] [place] [address] Primary Attending Psychiatry, General 09/12/24
--- OUTSIDE RECORDS SUMMARY | 2024-11-09 14:07 | XMS_ITS | Encounter Summary ---
Author Organization [facility] Address [address] [place] [address] Care Team Providers Care Supervisor Machining Name Role Phone Alec Dahl MD Primary Care Provider [phone] Diamond Gilbert LINE HAUL OWNER OPERATOR Unavailable Venita Lowe MD Unavailable [phone] Sarah Garcia LINE HAUL OWNER OPERATOR Unavailable Unavailabl e Maddie Richards LINE HAUL OWNER OPERATOR Unavailable Heidi Rebollar LINE HAUL OWNER OPERATOR Unavailable Ashia Plasencia Unavailable Hilaria Locke LINE HAUL OWNER OPERATOR Unavailable Joe Schuler [facility] Unavailable Mari Nelson LINE HAUL OWNER OPERATOR Unavailable Laci Colbert MD Unavailable Mariam Reese MD Unavailable [phone] Tania Wesley PsyD Unavailable Becka Bentley LPCA Unavailable [phone] Raina Hale DO Unavailable Raina Hale DO Unavailable [phone] Jenna Robert MD Unavailable [phone] Sam Glasgow MD Unavailable Eliana Maldonado DO Unavailable Sarah Beth Tee DO Unavailable [phone] Anne Schuler LCSW Unavailable [phone] TegandavidxochiltalexandrorupalSaira DO Unavailable [phone] Lashell Crouch MD Unavailable [phone] Encounter Details Date Type Department Care Team (Late st Contact Info) Description 07/12/2020 Scanned Document [facility] Ear, Nose and Throat [address] [place] [address] Provider, MD Niurka [address] [place] [address] Social History Tobacco Use Types Packs/Day Years [...] have Coronavirus / COVID-19? No / Unsure 07/12/2020 3:23 PM EDT documented as of this encounter Plan of Treatment Not on file documented as of this encounter Goals Goal Patient Goal Type Associated Problems Recent Progress Patient-Stated? Author Enhance and strengthen a sense of competence in managing daily stress. Care Plan PMI-Posttraumat ic Stress Disorder (PTSD) On track( 021 10:18 AM EDT) No Diamond Gilbert LCSW Note: Patient will learn at least [...] Disorder (PTSD) On track( 12:59 PM EDT) No Diamond Gilbert LCSW [...] documented as of this encounter Care Teams Supervisor Machining Relationship Specialty Start Date End Date Alec Dahl MD [address] [place] [address] PCP - General 09/22/19 Diamond Gilbert LCSW [address] [place] [address] Woodenware Assembler Clinical Social Work 02/23/20 12/12/20 Venita Lowe MD [address] [place] [address] Psychiatry, General 02/29/20 11/09/20 Sarah Garcia, [facility] [address] [place] [address] Woodenware Assembler Clinical Social Work 03/01/20 10/04/20 Maddie Richards, [facility] [address] [place] [address] Woodenware Assembler Clinical Social Work 03/02/20 10/04/20 Heidi Rebollar, [facility] [address] [place] [address] Woodenware Assembler Social Work 03/04/20 12/12/20 Ashia Plasencia [address] [place] [address] Clinician Social Work 03/09/20 10/04/20 Hilaria Locke, [facility] [address] [place] [address] Woodenware Assembler Clinical Social Work 04/22/20 10/04/20 Joe Schuler, [facility] [address] [place] [address] Woodenware Assembler Clinical Social Work 06/07/20 10/04/20 Mari Nelson, [facility] [address] [place] [address] Woodenware Assembler Clinical Social Work 09/14/20 10/04/20 Laci Colbert MD [address] [place] [address] Surgery, Orthopedic 10/05/20 Mariam Reese MD [address] [place] [address] Endocrinology 10/05/20 Tania Wesley, [facility] [address] [place], [place] [id number] Primary Clinician Psychology 10/14/20 12/12/20 Becka Bentley LPCA [address] [place], [place] [phone] Clinician Social Work 10/14/20 10/20/20 Raina Hale DO [address] [place] [address] Resident Psychiatry, General 11/10/20 11/10/20 Raina Hale DO [address] [place], [place] [id number] Resident Psychiatry, General 11/10/20 08/24/21 Jenna [place] MD [address] [place], [place] [phone] [facility] Attending Psychiatry, General 12/13/2008/21 Sam Glasgow MD [address] [place], [place] [id number] Primary Attending Psychiatry, General 08/25/2109/11 Eliana Maldonado DO [address] [place] [id number] Resident Psychiatry, General 09/18/21 11/09/21 Sarah Beth Tee DO [address] [place] [address] Psychiatry, General 09/28/22 03/20/23 Anne Schuler, LINE HAUL OWNER OPERATOR [address] [place] [address] Woodenware Assembler Clinical Social Work 11/08/23 Saira Darnell DO [address] [place] [address] Psychiatry, General 09/11/24 Lashell Crouch MD [address] [place] [address] Primary BH Attending Psychiatry, General 09/12/24 documented as of this encounter
--- OUTSIDE RECORDS SUMMARY | 2024-11-09 14:07 | XMS_ITS | Encounter Summary ---
Author Organization [facility] Address [address] [place] [address] Care Team Providers Care Air Quality Chemist Name Role Phone Alec Dahl MD Primary Care Provider [phone] Diamond Gilbert RISK MANAGEMENT PROFESSIONAL Unavailable Venita Lowe MD Unavailable [phone] Sarah Garcia RISK MANAGEMENT PROFESSIONAL Unavailable Unavailabl e Maddie Richards RISK MANAGEMENT PROFESSIONAL Unavailable Heidi Rebollar RISK MANAGEMENT PROFESSIONAL Unavailable Ashia Plasencia Unavailable Hilaria Locke RISK MANAGEMENT PROFESSIONAL Unavailable Joe Schuler [facility] Unavailable Mari Nelson RISK MANAGEMENT PROFESSIONAL Unavailable [phone] Laci Colbert MD Unavailable [phone] Mariam Reese MD Unavailable [phone] Tania Wesley PsyD Unavailable Becka Bentley LPCA Unavailable Raina Hale DO Unavailable Raina Hale DO Unavailable [phone] Jenna Robert MD Unavailable [phone] Sam Glasgow MD Unavailable Eliana Maldonado DO Unavailable Sarah Beth Tee DO Unavailable [phone] Anne Schuler LCSW Unavailable [phone] TegandavidoliSaira DO Unavailable [phone] Lashell Crouch MD Unavailable [phone] Encounter Details Date Type Department Care Team (Late st Contact Info) Description 03/11/2020 Lab Requisition [facility] Through [address] [place] [phone] Laci Dennison PA-C [address] [place] [phone] Encounter for laboratory testing for COVID-19 virus Social History Tobacco Use Types Packs/Day Years [...] or suspected to have Coronavirus / COVID-19? Unable to assess 03/11/2020 3:47 PM EST documented as of this encounter [...] medication maintenance documented as of this encounter Procedures Procedure Name Priority Date/Time Associated Diagnosis Comments COVID-19 (SARS-COV-2) - [facility] Routine 03/11/2020 3:47 PM EST Encounter for laboratory testing for COVID-19 virus [ICD-10-CM] documented in this encounter Results * COVID-19 (SARS-COV-2) (SEMA4) (03/11/2020 3:47 PM EST) COVID-19 RT-PCR NOT-DETEC TRISHA Not-Detec trisha 03/12/2020 6:19 PM EST [facility] Comment:Interpretation: The viral RNA was not detected, making the COVID-19 diagnosis less likely. Clinical correlation is highly recommended.Final report signed by Iam Levi, Ph.D., Laboratory DirectorTests performed at [facility] Microbiology Nasopharyngeal swab / Unknown 03/11/2020 3:47 PM EST 03/11/2020 3:47 PM EST Narrative SERENA LOCKHART - 03/12/2020 6:19 PM EST Performed by [facility] [address] [place] [address], CLIA# [id number] and [place] License# [id number] Laci Dennison PA-C MICROBIOLOGY - GENERAL OR DERABLES Final Result SERENA LOCKHART documented in this encounter Visit Diagnoses Diagnosis Encounter for laboratory testing for COVID-19 virus documented in this encounter Additional Health Concerns Active Problems Noted Date Diagnosed Date PMI-Posttraumatic Stress Disorder (PTSD) 021 Infection Onset Date Last Indicated Resolved Time R/O Respiratory Disease 05/20/2024 05/20/202404/26 11:00 PM EDT documented as of this encounter Care Teams Air Quality Chemist Relationship Specialty Start Date End Date Alec Dahl MD [address] [place] [address] PCP - General 09/22/19 Diamond Gilbert RISK MANAGEMENT PROFESSIONAL [address] [place] [address] Poultryman Clinical Social Work 02/23/20 12/12/20 Venita Lowe MD [address] [place] [address] Psychiatry, General 02/29/20 11/09/20 Sarah Garcia RISK MANAGEMENT PROFESSIONAL [address] [place] [address] Poultryman Clinical Social Work 03/01/20 10/04/20 Maddie Richards RISK MANAGEMENT PROFESSIONAL [address] [place] [address] Poultryman Clinical Social Work 03/02/20 10/04/20 Heidi Rebollar LCSW [address] [place] [address] Poultryman Social Work 03/04/20 12/12/20 Ashia Plasencia [address] [place] [address] Clinician Social Work 03/09/20 10/04/20 Hilaria Locke, [facility] [address] [place] [address] Poultryman Clinical Social Work 04/22/20 10/04/20 Joe Schuler, [facility] [address] [place] [address] Poultryman Clinical Social Work 06/07/20 10/04/20 Mari Nelson LCSW [address] [place] [address] Poultryman Clinical Social Work 09/14/20 10/04/20 Laci Colbert MD [address] [place] [address] Surgery, Orthopedic 10/05/20 Marima Reese MD [address] [place] [address] Endocrinology 10/05/20 Tania Wesley PsyD [address] [place] [address] Primary Clinician Psychology 10/14/20 12/12/20 Becka Bentley LPCA [address] [facility] [place] [address] Clinician Social Work 10/14/20 10/20/20 Raina Hale DO [address] [facility] [address] Resident Psychiatry, General 11/10/20 11/10/20 Raina Hale DO [address] [place] [address] Resident Psychiatry, General 11/10/20 08/24/21 Jenna [place] MD [address] [place] [address] Primary Attending Psychiatry, General 12/13/2008/21 Sam Glasgow MD [address] [place] [address] Primary Attending Psychiatry, General 08/25/2109/11 Eliana Maldonado DO [address] [place] [address] Resident Psychiatry, General 09/18/21 11/09/21 Sarah Beth Tee DO [address] [place] [address] Psychiatry, General 09/28/22 03/20/23 Anne Schuler LCSW [address] [place] [address] Poultryman Clinical Social Work 11/08/23 Saira Darnell, DO [address] [place] [address], [place] [address] Psychiatry, General 09/11/24 Lashell Crouch MD [address] [place] [address] Primary BH Attending Psychiatry, General 09/12/24 documented as of this encounter
--- OUTSIDE RECORDS SUMMARY | 2024-11-09 14:07 | XMS_ITS | Encounter Summary ---
Author Organization [facility] Address [address] [place] [phone] Care Team Providers Care Academic Affairs Coordinator Name Role Phone Alec Dahl MD Primary Care Provider [phone] Reason for Referral * Consultation (Routine) - New Request Specialty Diagnoses / Procedures Referred By Blanka mullen Referred To Contact Neurology Diagnoses Intracranial aneurysm (HC CODE) James Reynolds MD [address] [place] [phone] Phone: tel: fax: Jan Sheldon MD [address] [place] [phone] Phone: tel: fax: Referral ID Status Reason Start Date Expiration Date Visits Requested Visits Authorized [id number] New Request Specialty Services Required 11/09/2024 11/09/2025 1 1 Encounter Details Date Type Department Care Team (Late st Contact Info) Description 11/09/2024 Orders Only [facility] [address] [address] James Reynolds MD [address] [place] [phone] Intracranial aneurysm (HC CODE) (Primary Dx) Social History Tobacco Use Types [...] PM EDT Telemedicine [facility] [address] [facility] [address] [facility] [place] [address] James Reynolds MD [address] [place] [phone] 12/21/2024 10:00 AM EDT Office Visit [facility] [address] [place] [address] Oziel Isabel MD [address] [place] [phone] Scheduled Referrals Name Type Priority Associated Diagnoses Order Schedule Ambulatory referral to Neurology Outpatient Referral Routine Intracranial aneurysm Ordered: 11/09/2024 documented as of this encounter Visit Diagnoses Diagnosis Intracranial aneurysm (HC CODE)- Primary Cerebral aneurysm, nonruptured documented in this encounter Additional Health Concerns Assessment Noted Time PHQ-9 Depression Total Score: 0 01/01/20 21 4:42 AM EDT documented as of this encounter Care Teams Academic Affairs Coordinator Relationship Specialty Start Date End Date Alec Dahl MD [address] [place] [phone] PCP - General Internal Medicine 02/23/20 documented as of this encounter
== END 2024-11-09 13:43 | disposition home or self-care (01) ==
LOC: HO.HNS 10:47
PROVIDERS: PCP Internal Medicine; Referring Provider Internal Medicine; Visit Provider Physician Assistant
DX: M54.9 Dorsalgia, unspecified (principal)
CPT/HCPCS: 99205